=== PATIENT | male | born 1940 | race Two or more races ===

== ENCOUNTER 2020-09-10 16:22 | Outpatient (REF) | payer MEDICARE, SELFPAY | END 2020-09-10 16:23 | disposition home or self-care (01) | LOC: HO.LAB 16:22 | PROVIDERS: Visit Provider Internal Medicine | DX: Z20.822 Contact with and (suspected) exposure to COVID-19 (principal) | CPT/HCPCS: 36415; C9803; U0003 ==

== ENCOUNTER 2020-12-12 20:15 | Inpatient (IN) | payer MEDICARE, SELFPAY ==
--- NOTE | ~2020-12-12 | XR_ITS ---
EXAMINATION: XR CHEST CLINICAL INFORMATION: Covid 19 pneumonia COMPARISON: 01/27/2015 TECHNIQUE: Frontal view of the chest was obtained. FINDINGS: The heart and pulmonary vessels appear normal. There is no evidence of CHF. There are probably subtle multifocal patchy density is seen in the lungs but no gross consolidation. No gross effusion. There is underlying COPD. XR/XR chest 1V IMPRESSION: Ill-defined subtle multifocal densities described above. This can be seen with Covid 19
[2020-12-12 20:54] VITALS: BP 106/67; PULSE 85; RESP 18; TEMP 36.3; O2SAT 94; BMI 40.4
--- NOTE | 2020-12-12 21:15 | ED.SOB ---
HPI - SOB/Dyspnea General Chief Complaint: Upper Respiratory Symptoms Stated Complaint: Fever/Cough Time Seen by Provider: 12/12/20 21:14 Source: patient Mode of arrival: ambulatory Limitations: language barrier History of Present Illness HPI Narrative: Patient with no known prior lung issues got positive with COVID on 11/29 since then been coughing feeling short of breath low-grade fever poor appetite patient and daughter also sick with same patient has not received the vaccine no chest pain no abdominal pain no nausea no vomiting. Patient cough got worse in last 2 days patient when came here saturating 94% at room air MD elicited complaint: shortness of breath and cough Related Data Previous Rx's Medication Instructions Recorded albuterol sulfate [Proventil HFA] 2 puff INHALATION Q6H PRN #8.5 g 12/13/20 azithromycin [Zithromax] 250 mg PO DAILY 4 Days #4 tab 12/13/20 codeine-guaifenesin 5 ml PO Q6H PRN #237 ml 12/13/20 dexamethasone [Decadron] 6 mg PO DAILY #7 tab 12/13/20 Allergies Allergy/AdvReac Type Severity Reaction Status Date / Time No Known Allergies Allergy Unverified 05/15/20 15:41 Review of Systems Review of Systems: Constitutional : No Weight loss, + Fever, No Chills ENT/Mouth : No sore throat, No Rhinorrhea Eyes: No Eye Pain, No Swelling Cardiovascular : No Chest Pain, no palpitations Respiratory : +Cough, No Sputum, + shortness of breath Gastrointestinal : no Nausea, No Vomiting, No Diarrhea, No abdominal Pain, no black stools Genitourinary : No Dysuria, No Urinary Frequency Musculoskeletal : No joint pain, No Myalgias, No Joint Swelling Skin : No Skin Lesions, No rash Neuro : No Weakness, No Numbness, No Dizziness, No Headache Psych : No Anxiety/Panic, No Depression Heme/Lymph: No Bruising, No Lymphadenopathy Endocrine : No Polyuria, No Polydipsia All other systems reviewed and are negative [facility] Social History Social History Advance Directives: No Advance Directives Information Provided: No Physical Exam Vital Signs: Vital Signs: Last Vital Signs Temp 97.4 F 12/12/20 20:54 Pulse 77 12/12/20 22:54 Resp 18 12/12/20 20:54 BP 106/67 12/12/20 20:54 Pulse Ox 94 12/12/20 20:54 Body Mass Index 40.4 Appearance: Alert. Oriented X3. No acute distress. Eyes: Pupils equal, round and reactive to light. ENT: Pharynx normal. Neck: Normal inspection. Neck supple. CVS: Normal heart rate and rhythm. Pulses normal. Respiratory: Mild respiratory distress. Prolonged expiration no crackles or rhonchi Abdomen: Soft and nontender. Bowel sounds are present, no mass palpable, no CVA tenderness Skin: Skin warm and dry. Normal skin color. Normal skin turgor. Extremities: No lower extremity edema. No calf tenderness Neuro: Oriented X 3. No motor deficit. No sensory deficit. Course Reevaluation(s) Reevaluation #1: Patient been saturating 96% at rest feeling much better drinks lot of orange juice with chronic renal disease slightly elevated potassium 5.5 will give him Kayexalate advised not to drink too much orange juice at home. Will also discharge him home on Decadron Zithromax and cough syrup advised him to come back to the ER if feeling short of breath Time: 00:47 MDM - SOB/Dyspnea MDM Narrative Medical decision making narrative: Patient with COVID-19 pneumonia saturating 94% at this time will give him Decadron and Zithromax plan to discharge him home Lab Data Attestation: I reviewed the patient's lab results. Result diagrams: 12/12/20 22:36 12/12/20 23:25 Labs: Lab Results 12/12/20 12/12/20 12/12/20 Range/Units 22:11 22:36 22:36 WBC 7.0 (4.8-10.8) X10*3/uL RBC 4.66 (4.60-5.80) X10*6/uL Hgb 13.2 L (14.0-18.0) g/dl Hct 41.0 L (42-52) % MCV 88.0 (80-98) fL MCH 28.3 (27.0-33.0) pg MCHC 32.2 (31.0-36.0) g/dl RDW 14.5 (11.0-16.0) % Plt Count 220 (160-400) X10*3/uL MPV 10.1 (9.4-12.4) fL Immature Gran % (Auto) 0.9 H (0.0-0.4) % Neut % (Auto) 66.9 (45-73) % Lymph % (Auto) 17.1 L (20-40) % [place] % (Auto) 14.3 H (2-11) % Eos % (Auto) 0.7 (0-4) % Baso % (Auto) 0.1 (0-2) % Lymph # (Auto) 1.2 (1.2-4.9) X10*3/uL [place] # (Auto) 1.0 (0.1-1.2) X10*3/uL Eos # (Auto) 0.1 (0.0-0.4) X10*3/uL Baso # (Auto) 0.0 (0.0-0.2) X10*3/uL Abs Immat Gran (auto) 0.06 H (0.00-0.03) X10*3/uL Absolute Neuts (auto) 4.7 (2.0-8.3) X10*3/uL Absolute Nucleated RBC 0.000 (0.0-0.012) X10*3/uL Nucleated RBC % (auto) 0.0 (0.0-0.2) /100WBC PT (10.8-13.0) SEC INR (0.9-1.1) APTT (24.1-38.0) SEC D-Dimer NG/ML Sodium (135-145) mmol/L Potassium (3.3-5.1) mmol/L Chloride (96-108) mmol/L Carbon Dioxide (22-29) mmol/L Anion Gap (12-20) BUN (9-16) mg/dL Creatinine (0.5-1.4) mg/dL Estim Creat Clear Calc Estimated GFR Random Glucose (60-115) mg/dL Lactic Acid 1.0 (0.5-2.0) mmol/L Calcium (8.4-10.2) mg/dL Total Bilirubin (0.0-1.0) mg/dL Direct Bilirubin (0.0-0.5) mg/dL AST (5-37) U/L ALT (0-40) U/L Alkaline Phosphatase (39-117) U/L Lactate Dehydrogenase (118-273) U/L C-Reactive Protein (< or = 0.50) mg/dL Total Protein (6.5-8.0) g/dL Albumin (3.5-5.0) g/dL COVID-19 (KRYSTIN) Positive A (Negative) COVID-19 Clin Com See Note 12/12/20 12/12/20 12/12/20 Range/Units 23:25 23:25 Unknown WBC (4.8-10.8) X10*3/uL RBC (4.60-5.80) X10*6/uL Hgb (14.0-18.0) g/dl Hct (42-52) % MCV (80-98) fL MCH (27.0-33.0) pg MCHC (31.0-36.0) g/dl RDW (11.0-16.0) % Plt Count (160-400) X10*3/uL MPV (9.4-12.4) fL Immature Gran % (Auto) (0.0-0.4) % Neut % (Auto) (45-73) % Lymph % (Auto) (20-40) % [place] % (Auto) (2-11) % Eos % (Auto) (0-4) % Baso % (Auto) (0-2) % Lymph # (Auto) (1.2-4.9) X10*3/uL [place] # (Auto) (0.1-1.2) X10*3/uL Eos # (Auto) (0.0-0.4) X10*3/uL Baso # (Auto) (0.0-0.2) X10*3/uL Abs Immat Gran (auto) (0.00-0.03) X10*3/uL Absolute Neuts (auto) (2.0-8.3) X10*3/uL Absolute Nucleated RBC (0.0-0.012) X10*3/uL Nucleated RBC % (auto) (0.0-0.2) /100WBC PT 15.0 H (10.8-13.0) SEC INR 1.3 H (0.9-1.1) APTT 32.9 (24.1-38.0) SEC D-Dimer 642 NG/ML Sodium 140 (135-145) mmol/L Potassium 5.5 H (3.3-5.1) mmol/L Chloride 105 (96-108) mmol/L Carbon Dioxide 23 (22-29) mmol/L Anion Gap 18 (12-20) BUN 56 H (9-16) mg/dL Creatinine 2.44 H (0.5-1.4) mg/dL Estim Creat Clear Calc 29.0 Estimated GFR 26 Random Glucose 154 H (60-115) mg/dL Lactic Acid (0.5-2.0) mmol/L Calcium 8.4 (8.4-10.2) mg/dL Total Bilirubin 0.6 (0.0-1.0) mg/dL Direct Bilirubin 0.3 (0.0-0.5) mg/dL AST 161 H (5-37) U/L ALT 158 H (0-40) U/L Alkaline Phosphatase 45 (39-117) U/L Lactate Dehydrogenase 448 H Cancelled (118-273) U/L C-Reactive Protein 9.08 H Cancelled (< or = 0.50) mg/dL Total Protein 6.5 (6.5-8.0) g/dL Albumin 3.4 L (3.5-5.0) g/dL COVID-19 (KRYSTIN) (Negative) COVID-19 Clin Com ECG Data Attestation: I personally reviewed and interpreted this ECG as follows: Interpretation: Normal sinus rhythm heart rate 81 beats per minute normal intervals normal axis no acute ST T wave changes no acute ischemia Discharge Plan Discharge Clinical Impression: COVID-19 Patient Disposition: Home, Self-Care Instructions: COVID-19 (Coronavirus Disease 2019) (ED) Additional Instructions: Drink plenty of fluids avoid drinking orange juice. Take medication as prescribed. Report to the ER if increased shortness of breath and not feeling better Prescriptions: New dexamethasone [Decadron] 6 mg tablet 6 mg PO DAILY Qty: 7 RF: 0 codeine-guaifenesin 10-100 mg/5 mL liquid 5 ml PO Q6H PRN (Reason: cough) Qty: 237 RF: 0 albuterol sulfate [Proventil HFA] 90 mcg/actuation HFA aerosol inhaler 2 puff inhalation Q6H PRN (Reason: shortness of breath or wheezing) Qty: 8.5 RF: 0 azithromycin [Zithromax] 250 mg tablet 250 mg PO DAILY 4 Days Qty: 4 RF: 0 Print Language: Mexican
--- NOTE | 2020-12-12 22:00 | ECG_ITS ---
Test Reason : WEAKNESS Blood Pressure : / mmHG Vent. Rate : 081 BPM Atrial Rate : 081 BPM P-R Int : 138 ms QRS Dur : 102 ms QT Int : 348 ms P-R-T Axes : 037 041 077 degrees QTc Int : 404 ms Normal sinus rhythm Normal ECG When compared to the previous EKG of No significant changes seen Referred By: Bhavesh Freeman Electronically Signed By:Hu Osei
[2020-12-12 22:43] LABS: MANUAL DIFF FLAG NO
[2020-12-12 22:44] LABS: Basophils Percent Auto 0.1 % (0-2); Eosinophils Absolute Auto 0.1 X10*3/uL (0.0-0.4); Eosinophils Percent Auto 0.7 % (0-4); Hemoglobin 13.2 g/dl (14.0-18.0); Imm Gran Abs Auto 0.06 X10*3/uL (0.00-0.03); Imm Gran Pct Auto 0.9 % (0.0-0.4); Lymphocytes Absolute Auto 1.2 X10*3/uL (1.2-4.9); Lymphocytes Percent Auto 17.1 % (20-40); Mean Corpuscular HGB Conc 32.2 g/dl (31.0-36.0); Mean Corpuscular Hemoglobin 28.3 pg (27.0-33.0); Mean Platelet Volume 10.1 fL (9.4-12.4); Monocytes Percent Auto 14.3 % (2-11); Neutrophils Absolute Auto 4.7 X10*3/uL (2.0-8.3); Neutrophils Percent Auto 66.9 % (45-73); Platelet Count 220 X10*3/uL (160-400); Red Blood Count 4.66 X10*6/uL (4.60-5.80); Red Cell Distribution Width 14.5 % (11.0-16.0)
[2020-12-12 22:51] LABS: COVID-19 Test Positive (Negative); IDNOW Serial# 9DD0AD1C
[2020-12-12 22:54] VITALS: PULSE 77; O2SAT 93
[2020-12-12] MEDS: Albuterol/Iprat 2.5/0.5MG 3 ML AMPUL.NEB INHALE (22:54)
--- NOTE | 2020-12-12 23:40 | PC.NURSE ---
Pt is COVID+, confirmed with [facility] swab today. Pt self reports fever, & SOB. Latvian speaking. [employer] present. 20g IV access in left AC, patent and functional. Awaiting lab results. Will continue to monitor.
[2020-12-12 23:56] LABS: INTERNATIONAL NORM RATIO 1.3 (0.9-1.1)
[2020-12-12 23:59] LABS: D Dimer 642 NG/ML; Partial Thromboplastin Time 32.9 SEC (24.1-38.0)
[2020-12-13] VITALS (9 sets, daily range): BP systolic 118–141; BP diastolic 71–76; PULSE 67–91; RESP 14–22; TEMP 36.4–36.7; O2SAT 89–97
[2020-12-13] LABS: Alanine Aminotransferase 158 U/L (0-40); Albumin Level 3.4 g/dL (3.5-5.0); Alkaline Phosphatase 45 U/L (39-117); Anion Gap 18 (12-20); Aspartate Amino Transferase 161 U/L (5-37); Bilirubin Direct 0.3 mg/dL (0.0-0.5); Bilirubin Total 0.6 mg/dL (0.0-1.0); Blood Urea Nitrogen 56 mg/dL (9-16); C Reactive Protein 9.08 mg/dL (< or = 0.50); Calcium 8.4 mg/dL (8.4-10.2); Carbon Dioxide 23 mmol/L (22-29); Chloride 105 mmol/L (96-108); Estimated Glomerular Filt Rate 26; Glucose Random 154 mg/dL (60-115); Potassium 5.5 mmol/L (3.3-5.1); Sodium 140 mmol/L (135-145); Total Protein 6.5 g/dL (6.5-8.0)
[2020-12-13 00:07] LABS: Lactate Dehydrogenase 448 U/L (118-273)
--- NOTE | 2020-12-13 00:33 | PC.NURSE ---
RN to bedside with MD Freeman and Ami FOWLER. MD reviewed pt's case with him and plan for discharge home with prescriptions. Pt denied questions/concerns, verbalized understanding. MD informed the patient that he may begin to feel worse in the next couple days and to return back to the ED if symptoms become too much and/or difficulty with breathing.
--- NOTE | 2020-12-13 01:30 | PC.NURSE ---
RN to bedside to provide discharge instructions with Oculus VR grade and center marker on speaker phone. IV line dc'd and pt went to obtain vitals while reviewing instructions; O2 saturation noted to be 89-90% on room air with a good pleth all while the pt was sitting upright on the edge of the bed not speaking. Pt denied feeling short of breath and did not appear to be in distress. RN pushed call button and requested MD Freeman come to bedside for evaluation to determine if discharge home with that O2 sat was still appropriate. Per MD freeman pt to be admitted; pt placed on O2 via NC by RT with positive improvements. Pt made aware of plan by this RN and Viktoria RN went outside to the waiting room to speak with her and provide an update as the daughter was present to pickle solution maker the pt. Pt oriented to person and place only and noted to be forgetful requiring the same information to be relayed and/or often saying okay in response to this RN's Occitan questions and would appear to understand what is being said but when the grade and center marker would interpret the patient would not understand. RN aware
[2020-12-13] MEDS: Azithromycin 500 MG TABLET PO (01:40)
[2020-12-13] MEDS: Sodium Polystyrene Sulfon/Sorb 15 GM/60 ML ORAL.SUSP 30 GM PO (01:40)
--- NOTE | 2020-12-13 01:50 | PM.IMHP ---
History of Present Illness Date of Service: 12/13/20 Chief Complaint: Shortness of breath 80-year-old male with a past medical history of hypertension, hyperlipidemia, diabetes, chronic kidney disease, recent diagnosis of COVID-19 on 11/29/20 presented to the hospital with a chief complaint of neural was no shortness of breath and cough. Denies any fevers chills. Denies any numbness tingling. Denies any nausea vomiting diarrhea. Denies any chest pain palpitations lightheadedness dizziness. Mentions that his shortness of breath worsens on exertion Review of all other systems is negative except mentioned above Of note patient is also admitted for COVID-19 pneumonia, mentioned that patient problem was also her pulling positive. ER course: For ERT patient was saturating 94% on presentation but on ambulation patient is discharged 88%. Given azithromycin, Decadron. Admitted to the hospital for further management. Patient was also noted to be in mild DKA of COPD. [facility] Social History Household Members: Spouse Housing: House Alcohol intake: unknown Smoking Status: Never smoker Second Hand Smoke Exposure: No service: No Current occupational status: unemployed Meds Allergies Allergy/AdvReac Type Severity Reaction Status Date / Time No Known Allergies Allergy Verified 12/14/20 17:48 Active Medications: Current Medications Generic Name Dose Route Start Last Admin Trade Name Freq PRN Reason Stop Dose Admin Acetaminophen 650 mg 12/13/20 01:45 Acetaminophen 325 Mg Tablet PO Q6H PRN Pain, Mild (Pain Scale 1-3) Albuterol Sulfate 4 puff 12/13/20 01:48 Albuterol Sulfate 90 Mcg 8 Gm Inhaler INHALE Q2H PRN Shortness of Breath/Wheezing Amlodipine Besylate 5 mg 12/13/20 09:00 Amlodipine Besylate 5 Mg Tablet PO DAILY [facility] Protocol Aspirin 81 mg 12/13/20 09:00 Aspirin 81 Mg Tab.Chew PO DAILY [facility] Atorvastatin Calcium 80 mg 12/13/20 09:00 Atorvastatin Calcium 80 Mg Tablet PO DAILY [facility] Azithromycin 500 mg 12/13/20 01:45 Azithromycin 500 Mg Tablet PO Q24H [facility] Dexamethasone 6 mg 12/13/20 09:00 Dexamethasone 6 Mg Tablet PO DAILY [facility] Enoxaparin Sodium 40 mg 12/13/20 01:45 Enoxaparin Sodium 40 Mg/0.4 Ml Syringe SUBCUT Q24H [facility] Famotidine 20 mg 12/13/20 09:00 Famotidine 20 Mg Tablet PO BID [facility] Ceftriaxone Sodium 1 gm/ 50 mls @ 100 mls/hr 12/13/20 01:45 Sodium Chloride IV Q24H [facility] Insulin Glargine 10 unit 12/13/20 21:00 Insulin Glargine,Hum.Rec.Anlog 100 Unit/Ml 10 Ml Vial SUBCUT BEDTIME [facility] Insulin Human Lispro 0 unit 12/13/20 07:30 Insulin Lispro 100 Unit/Ml 3 Ml Vial SUBCUT QIDACHS [facility] Protocol Sodium Chloride 3 ml 12/13/20 08:00 0.9 % Sodium Chloride Flush 3 Ml Syringe IVFLUSH QSHIFT [facility] Home Medications Medication Instructions Recorded Confirmed Last Taken Type Breo Ellipta 1 puff INHALATION DAILY 12/13/20 12/13/20 12/12/20 History amlodipine 1 tab PO QAM 12/13/20 12/13/20 12/12/20 History aspirin 1 tab PO QPM 12/13/20 12/13/20 12/12/20 History atorvastatin 1 tab PO QPM 12/13/20 12/13/20 12/12/20 History glipizide 1 tab PO BID 12/13/20 12/13/20 12/12/20 History montelukast 1 tab PO QPM 12/13/20 12/13/20 12/12/20 History omega-3 fatty acids-vitamin E 1 cap BID 12/13/20 12/13/20 12/12/20 History omeprazole 1 cap PO QAM 12/13/20 12/13/20 12/12/20 History pioglitazone 1 tab PO QAM 12/13/20 12/13/20 12/12/20 History valsartan-hydrochlorothiazide 1 tab PO QAM 12/13/20 12/13/20 12/12/20 History Physical Exam Vital Signs and Narrative: Vital Signs: Last Vital Signs Temp 98.0 F 12/13/20 00:53 Pulse 86 12/13/20 01:43 Resp 14 12/13/20 01:43 BP 141/74 H 12/13/20 01:43 Pulse Ox 96 12/13/20 01:46 Body Mass Index 40.4 Gen: Appears be in no acute distress; speaks in full sentences HEENT: NCAT, Moist mucosa. Pulmonary: Course breath sounds, fair air entry CVS: Normal S1-S2 Abdomen: BS+, Soft, Nontender Extremities: Warm well perfused Neuro: Alert and awake. Results Labs CBC and Chem 7: 12/15/20 06:04 12/15/20 06:04 Labs: Laboratory Results - last 24 hr 12/12/20 12/12/20 12/12/20 22:11 22:36 22:36 MCV 88.0 MCH 28.3 MCHC 32.2 RDW 14.5 Plt Count 220 MPV 10.1 Immature Gran % (Auto) 0.9 H Neut % (Auto) 66.9 Lymph % (Auto) 17.1 L [place] % (Auto) 14.3 H Eos % (Auto) 0.7 Baso % (Auto) 0.1 Lymph # (Auto) 1.2 [place] # (Auto) 1.0 Eos # (Auto) 0.1 Baso # (Auto) 0.0 Abs Immat Gran (auto) 0.06 H Absolute Neuts (auto) 4.7 Absolute Nucleated RBC 0.000 Nucleated RBC % (auto) 0.0 PT INR APTT D-Dimer Anion Gap Estim Creat Clear Calc Estimated GFR Random Glucose Lactic Acid 1.0 Calcium Total Bilirubin Direct Bilirubin AST ALT Alkaline Phosphatase Lactate Dehydrogenase C-Reactive Protein Total Protein Albumin COVID-19 (KRYSTIN) Positive A COVID-19 Clin Com See Note 12/12/20 12/12/20 12/12/20 23:25 23:25 Unknown MCV MCH MCHC RDW Plt Count MPV Immature Gran % (Auto) Neut % (Auto) Lymph % (Auto) [place] % (Auto) Eos % (Auto) Baso % (Auto) Lymph # (Auto) [place] # (Auto) Eos # (Auto) Baso # (Auto) Abs Immat Gran (auto) Absolute Neuts (auto) Absolute Nucleated RBC Nucleated RBC % (auto) PT 15.0 H INR 1.3 H APTT 32.9 D-Dimer 642 Anion Gap 18 Estim Creat Clear Calc 29.0 Estimated GFR 26 Random Glucose 154 H Lactic Acid Calcium 8.4 Total Bilirubin 0.6 Direct Bilirubin 0.3 AST 161 H ALT 158 H Alkaline Phosphatase 45 Lactate Dehydrogenase 448 H Cancelled C-Reactive Protein 9.08 H Cancelled Total Protein 6.5 Albumin 3.4 L COVID-19 (KRYSTIN) COVID-19 Clin Com Imaging Radiologist's Impressions: Impressions Chest X-Ray 12/12/20 21:57 IMPRESSION: Ill-defined subtle multifocal densities described above. This can be seen with Covid 19 Assessment and Plan (1) COVID-19: Status: Acute 80-year-old male with a past medical history of hypertension, hyperlipidemia, diabetes, chronic kidney disease presented to the hospital with a chief complaint of shortness of breath. Patient was recently diagnosed with COVID-19. Hypoxic: In the setting of COVID-19. Supplemental oxygen. Will saturate 90%. Patient currently not in distress. Albuterol inhaler p.r.n.. COVID-19 pneumonia: Continue ceftriaxone, azithromycin, Decadron. Id consult for further recommendations. Mild Javy on CKD: Hold home hydrochlorothiazide/valsartan. Monitor renal function. Diabetes: Give the patient on Lantus 10 units and insulin sliding scale. Monitor fingerstick glucose. Hypertension: Continue home amlodipine. Hyperlipidemia: Continue Lipitor DVT prophylaxis: Lovenox GI prophylaxis: Pepcid Code status: Full code
[2020-12-13] MEDS: cefTRIAXone sodium 1 GM in 0.9 % Sodium Chloride 50 ML IV (03:29)
[2020-12-13 07:30] LABS: MANUAL DIFF FLAG NO
[2020-12-13 07:32] LABS: Basophils Percent Auto 0.2 % (0-2); Eosinophils Percent Auto 0.3 % (0-4); Hematocrit 39.6 % (42-52); Hemoglobin 12.6 g/dl (14.0-18.0); Imm Gran Abs Auto 0.06 X10*3/uL (0.00-0.03); Imm Gran Pct Auto 0.9 % (0.0-0.4); Mean Corpuscular HGB Conc 31.8 g/dl (31.0-36.0); Mean Corpuscular Hemoglobin 28.2 pg (27.0-33.0); Mean Corpuscular Volume 88.6 fL (80-98); Mean Platelet Volume 9.6 fL (9.4-12.4); Monocytes Percent Auto 14.9 % (2-11); Neutrophils Absolute Auto 4.5 X10*3/uL (2.0-8.3); Neutrophils Percent Auto 68.7 % (45-73); Platelet Count 237 X10*3/uL (160-400); Red Blood Count 4.47 X10*6/uL (4.60-5.80); Red Cell Distribution Width 14.5 % (11.0-16.0); White Blood Count 6.5 X10*3/uL (4.8-10.8)
--- NOTE | 2020-12-13 07:40 | PC.NURSE ---
Earlier this shift, patient was incontinent of stool. Liquid stool noted on ground and cleaned up by staff. Pt apologetic, and otherwise pleasant/cooperative/calm. Pt ambulated with steady gait to bathroom, and voided twice in bathroom with steady gait. Placed on 3lpm oxygen via nasal cannula, tolerating well. RN to RN report given to CARLOS Tripp.
[2020-12-13 07:49] LABS: Glucose, Whole Blood 167 mg/dL (60-115)
[2020-12-13] MEDS: Insulin Lispro 100 UNIT/ML 3 ML VIAL SUBCUT ×4 (07:51→22:25)
[2020-12-13] MEDS: 0.9 % Sodium Chloride Flush 3 ML SYRINGE IVFLUSH ×2 (07:52→16:06)
[2020-12-13 07:57] LABS: Anion Gap 17 (12-20); Blood Urea Nitrogen 57 mg/dL (9-16); Calcium 8.3 mg/dL (8.4-10.2); Carbon Dioxide 26 mmol/L (22-29); Chloride 105 mmol/L (96-108); Estimated Glomerular Filt Rate 25; Glucose Random 193 mg/dL (60-115); Potassium 5.3 mmol/L (3.3-5.1); Sodium 143 mmol/L (135-145)
[2020-12-13] MEDS: Famotidine 20 MG TABLET PO (08:56)
[2020-12-13] MEDS: dexAMETHasone 6 MG TABLET PO (08:56)
[2020-12-13] MEDS: Atorvastatin Calcium 80 MG TABLET PO (08:56)
[2020-12-13] MEDS: Aspirin 81 MG TAB.CHEW PO (08:56)
[2020-12-13] MEDS: amLODIPine Besylate 5 MG TABLET PO (08:56)
[2020-12-13] MEDS: Enoxaparin Sodium 30 MG/0.3 ML SYRINGE SUBCUT (08:57)
--- NOTE | 2020-12-13 09:06 | PC.NURSE ---
pt ate 100% of breakfast- medicated per emar. resting comfortably in bed. vss.
--- NOTE | 2020-12-13 10:11 | MHC.CM.PN ---
CM CONTACTED PTS DAUGHTER, JACOB VILLATORO ([phone]) VIA T/C. SHE REPORTS THE PT LIVES WITH HIS AND IS PRIMARILY INDEPENDENT WITH SELF CARE. 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 SHE REPORTS THE PT HAS A WALKER AND AN ELECTRIC SCOOTER FOR MOBILITY. JACOB REPORTS THE PT SEES [facility] FOR PRIMARY CARE AND SHE BELIEVES HE HAS COMPLETED A HCP IN THE PAST THAT MAY BE AT THE PCP OFFICE. JACOB REPORTS HE MOTHER IS ALSO ILL AND SHE IS VERY WORRIED THAT THE PT WILL NOT BE SAFE IF HE GOES HOME TOO SOON. JACOB, WHO WAS VERY TEARFUL, REPORTS THE PTS CONTROLS DESIGNER MAY NOT EVEN SEE HIM DUE TO THE COVID. CM ASSURED HER THE PTS DC PLAN WOULD BE DEVELOPED BASED ON PTS SAFETY RISKS AND MEDICAL NEEDS. IMM DELIVERED AND A COPY WILL BE MAILED TO PTS HOME CURRENTLY PTS DC PLAN IS TBD. ? HOME WITH RESUMPTION OF CONTR[employer]S DES[employer]ER AND [employer] CM SERVICES VS STR. TRANSPORTATION TBD BY DISPOSITION
[2020-12-13 10:19] LABS: Procalcitonin 0.26 ng/mL
[2020-12-13 13:19] LABS: Glucose, Whole Blood 175 mg/dL (60-115)
--- NOTE | 2020-12-13 13:33 | PC.NURSE ---
medicated per emar. sitting up eating lunch at this time. resp even and unlabored. tolerating nc well and sats above 95
--- NOTE | 2020-12-13 16:19 | P.PNIM_ITS ---
Subjective Subjective Date of Service: 12/13/20 Interval History: C/o cough and shortness of breath Maintaining good O2 sat on NC is in next room also getting admitted for COVID-19 pneumonia Physical Exam Vital Signs: Vital Signs: Last Vital Signs Temp 98.0 F 12/13/20 00:53 Pulse 76 12/13/20 14:19 Resp 16 12/13/20 14:19 BP 118/71 12/13/20 12:00 Pulse Ox 97 12/13/20 14:19 Body Mass Index 40.4 Gen: in no acute distress HEENT: sclera anicteric, moist mucus membranes Neck: supple Lungs: no respiratory distress, auscultation deferred due to COVID-19 Heart: normal peripheral pulses Abd: soft, non-tender, non-distended Ext: no cyanosis, clubbing, or edema Skin: warm/well-perfused Neuro: alert and oriented x3, no focal findings Psych: appropriate affect Objective Data Current Medications Generic Name Dose Route Start Last Admin Trade Name Freq PRN Reason Stop Dose Admin Acetaminophen 650 mg 12/13/20 01:45 Acetaminophen 325 Mg Tablet PO Q6H PRN Pain, Mild (Pain Scale 1-3) Albuterol Sulfate 4 puff 12/13/20 01:48 Albuterol Sulfate 90 Mcg 8 Gm Inhaler INHALE Q2H PRN Shortness of Breath/Wheezing Amlodipine Besylate 5 mg 12/13/20 09:00 12/13/20 08:56 Amlodipine Besylate 5 Mg Tablet PO 5 mg DAILY AGNES Administration Protocol Aspirin 81 mg 12/13/20 09:00 12/13/20 08:56 Aspirin 81 Mg Tab.Chew PO 81 mg DAILY AGNES Administration Atorvastatin Calcium 80 mg 12/13/20 09:00 12/13/20 08:56 Atorvastatin Calcium 80 Mg Tablet PO 80 mg DAILY AGNES Administration Dexamethasone 6 mg 12/13/20 09:00 12/13/20 08:56 Dexamethasone 6 Mg Tablet PO 6 mg DAILY AGNES Administration Enoxaparin Sodium 30 mg 12/13/20 09:00 12/13/20 08:57 Enoxaparin Sodium 30 Mg/0.3 Ml Syringe SUBCUT 30 mg DAILY AGNES Administration Famotidine 20 mg 12/13/20 09:00 12/13/20 08:56 Famotidine 20 Mg Tablet PO 20 mg DAILY AGNES Administration Insulin Glargine 10 unit 12/13/20 21:00 Insulin Glargine,Hum.Rec.Anlog 100 Unit/Ml 10 Ml Vial SUBCUT BEDTIME [facility] Insulin Human Lispro 0 unit 12/13/20 07:30 12/13/20 13:22 Insulin Lispro 100 Unit/Ml 3 Ml Vial SUBCUT 2 unit QIDACHS [facility] Administration Protocol Sodium Chloride 3 ml 12/13/20 08:00 12/13/20 16:06 0.9 % Sodium Chloride Flush 3 Ml Syringe IVFLUSH 3 ml QSHIFT [facility] Administration Labs CBC & Chem 7: 12/13/20 07:14 12/13/20 07:14 Labs: Laboratory Results - last 24 hr 12/12/20 12/12/20 12/12/20 22:11 22:36 22:36 WBC 7.0 RBC 4.66 Hgb 13.2 L Hct 41.0 L MCV 88.0 MCH 28.3 MCHC 32.2 RDW 14.5 Plt Count 220 MPV 10.1 Immature Gran % (Auto) 0.9 H Neut % (Auto) 66.9 Lymph % (Auto) 17.1 L Cottle % (Auto) 14.3 H Eos % (Auto) 0.7 Baso % (Auto) 0.1 Lymph # (Auto) 1.2 Cottle # (Auto) 1.0 Eos # (Auto) 0.1 Baso # (Auto) 0.0 Abs Immat Gran (auto) 0.06 H Absolute Neuts (auto) 4.7 Absolute Nucleated RBC 0.000 Nucleated RBC % (auto) 0.0 PT INR APTT D-Dimer Sodium Potassium Chloride Carbon Dioxide Anion Gap BUN Creatinine Estim Creat Clear Calc Estimated GFR POC Glucose Random Glucose Lactic Acid 1.0 Calcium Total Bilirubin Direct Bilirubin AST ALT Alkaline Phosphatase Lactate Dehydrogenase C-Reactive Protein Total Protein Albumin Procalcitonin COVID-19 (KRYSTIN) Positive A COVID-19 Clin Com See Note 12/12/20 12/12/20 12/12/20 23:25 23:25 Unknown WBC RBC Hgb Hct MCV MCH MCHC RDW Plt Count MPV Immature Gran % (Auto) Neut % (Auto) Lymph % (Auto) Cott[place] % (Auto) Eos % (Auto) Baso % (Auto) Lymph # (Auto) Cott[place] # (Auto) Eos # (Auto) Baso # (Auto) Abs Immat Gran (auto) Absolute Neuts (auto) Absolute Nucleated RBC Nucleated RBC % (auto) PT 15.0 H INR 1.3 H APTT 32.9 D-Dimer 642 Sodium 140 Potassium 5.5 H Chloride 105 Carbon Dioxide 23 Anion Gap 18 BUN 56 H Creatinine 2.44 H Estim Creat Clear Calc 29.0 Estimated GFR 26 POC Glucose Random Glucose 154 H Lactic Acid Calcium 8.4 Total Bilirubin 0.6 Direct Bilirubin 0.3 AST 161 H ALT 158 H Alkaline Phosphatase 45 Lactate Dehydrogenase 448 H Cancelled C-Reactive Protein 9.08 H Cancelled Total Protein 6.5 Albumin 3.4 L Procalcitonin COVID-19 (KRYSTIN) COVID[employer]eraDx ([employer]) 12/13/20 12/13/20 12/13/20 07:14 07:14 07:14 WBC 6.5 RBC 4.47 L Hgb 12.6 L Hct 39.6 L MCV 88.6 MCH 28.2 MCHC 31.8 RDW 14.5 Plt Count 237 MPV 9.6 Immature Gran % (Auto) 0.9 H Neut % (Auto) 68.7 Lymph % (Auto) 15.0 L Cott[place] % (Auto) 14.9 H Eos % (Auto) 0.3 Baso % (Auto) 0.2 Lymph # (Auto) 1.0 L Cott[place] # (Auto) 1.0 Eos # (Auto) 0.0 Baso # (Auto) 0.0 Abs Immat Gran (auto) 0.06 H Absolute Neuts (auto) 4.5 Absolute Nucleated RBC 0.000 Nucleated RBC % (auto) 0.0 PT INR APTT D-Dimer Sodium 143 Potassium 5.3 H Chloride 105 Carbon Dioxide 26 Anion Gap 17 BUN 57 H Creatinine 2.53 H Estim Creat Clear Calc 28.0 Estimated GFR 25 POC Glucose Random Glucose 193 H Lactic Acid Calcium 8.3 L Total Bilirubin Direct Bilirubin AST ALT Alkaline Phosphatase Lactate Dehydrogenase C-Reactive Protein Total Protein Albumin Procalcitonin 0.26 COVID-19 (KRYSTIN) [employer]era[employer]x ([employer]) 12/13/20 12/13/20 07:44 13:14 WBC RBC Hgb Hct MCV MCH MCHC RDW Plt Count MPV Immature Gran % (Auto) Neut % (Auto) Lymph % (Auto) Cottle % (Auto) Eos % (Auto) Baso % (Auto) Lymph # (Auto) Cottle # (Auto) Eos # (Auto) Baso # (Auto) Abs Immat Gran (auto) Absolute Neuts (auto) Absolute Nucleated RBC Nucleated RBC % (auto) PT INR APTT D-Dimer Sodium Potassium Chloride Carbon Dioxide Anion Gap BUN Creatinine Estim Creat Clear Calc Estimated GFR POC Glucose 167 H 175 H Random Glucose Lactic Acid Calcium Total Bilirubin Direct Bilirubin AST ALT Alkaline Phosphatase Lactate Dehydrogenase C-Reactive Protein Total Protein Albumin Procalcitonin COVID-19 (KRYSTIN) COVID-19 Clin Com Impressions Chest X-Ray 12/12/20 21:57 IMPRESSION: Ill-defined subtle multifocal densities described above. This can be seen with Covid 19 Assessment and Plan (1) COVID-19: Status: Acute (2) Hypoxia: Status: Acute Assessment and Plan: hospital d#2 80yo M with DM2, HTN, HLD, CKD3 presenting with worsening dyspnea + cough since diagnosis of COVID-19 on 11/29/20 admitted for hypoxia # acute hypoxic respiratory failure - supplemental O2 via NC, wean as tolerated, encouarged awake proning # COVID-19 pneumonia - dexamethasone d#1. out of window for remdesivir and CrCl is <30. PCT low; d/c ABX, doubt bacterial superinfection # SHANNON/CKD4 - hold home valsartan + HCTZ. monitor electrlytes # hyperK - mild, improving p SPS # HTN - continue amlodipine, hold valsartan + HCTZ as above # asthma - continue ICS/LABA, montelukast, prn KATIE # HLD - continue statin # DM2 - Lantus + Humalog # VTE ppx - continue LMWH
[2020-12-13 18:41] LABS: Glucose, Whole Blood 302 mg/dL (60-115)
--- NOTE | 2020-12-13 18:44 | PC.NURSE ---
pt medicated per emar, eating dinner at this time. resting in bed comfortably nad.
[2020-12-13 22:13] LABS: Glucose, Whole Blood 275 mg/dL (60-115)
[2020-12-13] MEDS: Insulin Glargine,Hum.rec.anlog 100 UNIT/ML 10 ML VIAL 10 UNIT SUBCUT (22:25)
[2020-12-13] MEDS: Montelukast Sodium 10 MG TABLET PO (22:25)
--- NOTE | 2020-12-13 23:02 | W.PM.IDCN ---
History of Present Illness Data of Consult Service Date: 12/13/20 Requesting physician: Festus Cortes Primary Care Provider: Saumya Phelps MD [facility] Reason for consult: ESTELA He presents to hospital with weakness and chills for a week Testing shows COVMAUDE He has been on room air Review of Systems Review of Systems: Yes all other systems are reviewed and are negative PMFSH Family History Family history: reviewed and not pertinent Social History Social History Alcohol intake: unknown Smoking Status: Unknown if ever smoked Use of substances other than those prescribed or required for medical reasons: Unknown Advance Directives: No Advance Directives Information Provided: No service: No Current occupational status: unemployed Meds Allergies Allergy/AdvReac Type Severity Reaction Status Date / Time No Known Allergies Allergy Unverified 05/15/20 15:41 Active Medications: Current Medications Generic Name Dose Route Start Last Admin Trade Name Freq PRN Reason Stop Dose Admin Acetaminophen 650 mg 12/13/20 01:45 Acetaminophen 325 Mg Tablet PO Q6H PRN Pain, Mild (Pain Scale 1-3) Albuterol Sulfate 4 puff 12/13/20 01:48 Albuterol Sulfate 90 Mcg 8 Gm Inhaler INHALE Q2H PRN Shortness of Breath/Wheezing Amlodipine Besylate 5 mg 12/13/20 09:00 12/13/20 08:56 Amlodipine Besylate 5 Mg Tablet PO 5 mg DAILY AGNES Administration Protocol Aspirin 81 mg 12/13/20 09:00 12/13/20 08:56 Aspirin 81 Mg Tab.Chew PO 81 mg DAILY AGNES Administration Atorvastatin Calcium 80 mg 12/13/20 09:00 12/13/20 08:56 Atorvastatin Calcium 80 Mg Tablet PO 80 mg DAILY AGNES Administration Dexamethasone 6 mg 12/13/20 09:00 12/13/20 08:56 Dexamethasone 6 Mg Tablet PO 6 mg DAILY AGNES Administration Enoxaparin Sodium 30 mg 12/13/20 09:00 12/13/20 08:57 Enoxaparin Sodium 30 Mg/0.3 Ml Syringe SUBCUT 30 mg DAILY AGNES Administration Famotidine 20 mg 12/13/20 09:00 12/13/20 08:56 Famotidine 20 Mg Tablet PO 20 mg DAILY AGNES Administration Fluticasone/Vilanterol 1 puff 12/14/20 08:00 Fluticasone/Vilanterol 200/25 Blst.W.Dev INHALE RDAILY [facility] Insulin Glargine 10 unit 12/13/20 21:00 12/13/20 22:25 Insulin Glargine,Hum.Rec.Anlog 100 Unit/Ml 10 Ml Vial SUBCUT 10 unit BEDTIME AGNES Administration Insulin Human Lispro 0 unit 12/13/20 07:30 12/13/20 22:25 Insulin Lispro 100 Unit/Ml 3 Ml Vial SUBCUT 6 unit QIDACHS [facility] Administration Protocol Montelukast Sodium 10 mg 12/13/20 21:00 12/13/20 22:25 Montelukast Sodium 10 Mg Tablet PO 10 mg BEDTIME AGNES Administration Sodium Chloride 3 ml 12/13/20 08:00 12/13/20 16:06 0.9 % Sodium Chloride Flush 3 Ml Syringe IVFLUSH 3 ml QSHIFT [facility] Administration Home Medications Medication Instructions Recorded Confirmed Last Taken Type amlodipine 1 tab PO QAM 12/13/20 12/13/20 12/12/20 History aspirin 1 tab PO QPM 12/13/20 12/13/20 12/12/20 History atorvastatin 1 tab PO QPM 12/13/20 12/13/20 12/12/20 History fluticasone furoate-vilanterol 1 puff INHALATION DAILY 12/13/20 12/13/20 12/12/20 History [Breo Ellipta] glipizide 1 tab PO BID 12/13/20 12/13/20 12/12/20 History montelukast 1 tab PO QPM 12/13/20 12/13/20 12/12/20 History omega-3 fatty acids-vitamin E 1 cap BID 12/13/20 12/13/20 12/12/20 History [Fish Oil] omeprazole 1 cap PO QAM 12/13/20 12/13/20 12/12/20 History pioglitazone 1 tab PO QAM 12/13/20 12/13/20 12/12/20 History valsartan-hydrochlorothiazide 1 tab PO QAM 12/13/20 12/13/20 12/12/20 History Physical Exam Vital Signs: Vital Signs: Last Vital Signs Temp 97.6 F 12/13/20 21:24 Pulse 81 12/13/20 21:24 Resp 22 H 12/13/20 21:24 BP 132/74 12/13/20 21:24 Pulse Ox 92 12/13/20 21:24 Body Mass Index 40.4 Const: General: cooperative HENMT: Head: Yes normal to inspection Mouth: Normal oral and palatal mucosa present Resp: Effort & Inspection: normal respiratory effort Cardio: Rate: regular rate Rhythm: regular rhythm Skin: General skin exam: no rashes or lesions noted Results Labs CBC & Chem 7: 12/13/20 07:14 12/13/20 07:14 Labs: Short CBC 12/13/20 Range/Units 07:14 WBC 6.5 (4.8-10.8) X10*3/uL Hgb 12.6 L (14.0-18.0) g/dl Hct 39.6 L (42-52) % Plt Count 237 (160-400) X10*3/uL BMP 12/12/20 12/13/20 23:25 07:14 Sodium 140 143 Potassium 5.5 H 5.3 H Chloride 105 105 Carbon Dioxide 23 26 BUN 56 H 57 H Creatinine 2.44 H 2.53 H Calcium 8.4 8.3 L Liver Function 12/12/20 Range/Units 23:25 Total Bilirubin 0.6 (0.0-1.0) mg/dL Direct Bilirubin 0.3 (0.0-0.5) mg/dL AST 161 H (5-37) U/L ALT 158 H (0-40) U/L Alkaline Phosphatase 45 (39-117) U/L Albumin 3.4 L (3.5-5.0) g/dL Assessment and Plan (1) COVID-19: Problem details: He has no oxygen requirements He has no secondary infection Status: Acute Dexamethasone as needed Remdesivir if needs oxygen Anticoagulation preventive as doing
[2020-12-14] VITALS (7 sets, daily range): BP systolic 104–138; BP diastolic 65–80; PULSE 57–87; RESP 17–26; TEMP 36.2–36.4; O2SAT 93–99
[2020-12-14] MEDS: 0.9 % Sodium Chloride Flush 3 ML SYRINGE IVFLUSH ×4 (00:15→22:49)
[2020-12-14 08:25] LABS: Glucose, Whole Blood 204 mg/dL (60-115)
[2020-12-14] MEDS: amLODIPine Besylate 5 MG TABLET PO (08:42)
[2020-12-14] MEDS: Atorvastatin Calcium 80 MG TABLET PO (08:42)
[2020-12-14] MEDS: Aspirin 81 MG TAB.CHEW PO (08:42)
[2020-12-14] MEDS: Insulin Lispro 100 UNIT/ML 3 ML VIAL SUBCUT ×4 (08:42→22:49)
[2020-12-14] MEDS: Famotidine 20 MG TABLET PO (08:42)
[2020-12-14] MEDS: dexAMETHasone 6 MG TABLET PO (08:42)
[2020-12-14] MEDS: Enoxaparin Sodium 30 MG/0.3 ML SYRINGE SUBCUT (08:43)
[2020-12-14 08:47] LABS: MANUAL DIFF FLAG NO
[2020-12-14 08:59] LABS: Basophils Percent Auto 0.1 % (0-2); Hemoglobin 12.9 g/dl (14.0-18.0); Imm Gran Abs Auto 0.13 X10*3/uL (0.00-0.03); Imm Gran Pct Auto 1.5 % (0.0-0.4); Lymphocytes Absolute Auto 0.7 X10*3/uL (1.2-4.9); Lymphocytes Percent Auto 8.1 % (20-40); Mean Corpuscular HGB Conc 33.1 g/dl (31.0-36.0); Mean Corpuscular Hemoglobin 28.8 pg (27.0-33.0); Mean Corpuscular Volume 87.1 fL (80-98); Mean Platelet Volume 9.7 fL (9.4-12.4); Monocytes Percent Auto 10.8 % (2-11); Neutrophils Percent Auto 79.5 % (45-73); Platelet Count 300 X10*3/uL (160-400); Red Blood Count 4.48 X10*6/uL (4.60-5.80); Red Cell Distribution Width 14.3 % (11.0-16.0); White Blood Count 8.9 X10*3/uL (4.8-10.8)
[2020-12-14 09:08] LABS: D Dimer 672 NG/ML
[2020-12-14 09:24] LABS: Alanine Aminotransferase 157 U/L (0-40); Albumin Level 3.6 g/dL (3.5-5.0); Alkaline Phosphatase 46 U/L (39-117); Anion Gap 20 (12-20); Aspartate Amino Transferase 123 U/L (5-37); Bilirubin Direct 0.3 mg/dL (0.0-0.5); Bilirubin Total 0.6 mg/dL (0.0-1.0); Blood Urea Nitrogen 63 mg/dL (9-16); C Reactive Protein 7.66 mg/dL (< or = 0.50); Calcium 8.8 mg/dL (8.4-10.2); Carbon Dioxide 21 mmol/L (22-29); Chloride 107 mmol/L (96-108); Creatinine Clr Calc Pharmacy 29.6; Estimated Glomerular Filt Rate 26; Glucose Random 215 mg/dL (60-115); Potassium 5.1 mmol/L (3.3-5.1); Sodium 143 mmol/L (135-145); Total Protein 6.7 g/dL (6.5-8.0)
[2020-12-14 09:44] LABS: Procalcitonin 0.23 ng/mL
[2020-12-14 10:39] LABS: Ferritin 4558 ng/mL (20-250)
[2020-12-14 12:41] LABS: Glucose, Whole Blood 269 mg/dL (60-115)
--- NOTE | 2020-12-14 12:51 | P.PNIM_ITS ---
Subjective Subjective Date of Service: 12/14/20 Interval History: history taken from patient in Latvian dyspnea improved no fever weaned off oxygen this morning is admitted to isolation upstairs with COVID-19 Physical Exam Vital Signs: Vital Signs: Last Vital Signs Temp 97.6 F 12/13/20 21:24 Pulse 87 12/14/20 08:42 Resp 18 12/14/20 08:16 BP 110/75 12/14/20 08:42 Pulse Ox 93 12/14/20 08:16 Body Mass Index 40.4 Gen: in no acute distress HEENT: sclera anicteric, moist mucus membranes Neck: supple Lungs: no respiratory distress, auscultation deferred due to COVID-19 Heart: normal peripheral pulses Abd: soft, non-tender, non-distended Ext: no cyanosis, clubbing, or edema Skin: warm/well-perfused Neuro: alert and oriented x3, no focal findings Psych: appropriate affect Objective Data Current Medications Generic Name Dose Route Start Last Admin Trade Name Freq PRN Reason Stop Dose Admin Acetaminophen 650 mg 12/13/20 01:45 Acetaminophen 325 Mg Tablet PO Q6H PRN Pain, Mild (Pain Scale 1-3) Albuterol Sulfate 4 puff 12/13/20 01:48 Albuterol Sulfate 90 Mcg 8 Gm Inhaler INHALE Q2H PRN Shortness of Breath/Wheezing Amlodipine Besylate 5 mg 12/13/20 09:00 12/14/20 08:42 Amlodipine Besylate 5 Mg Tablet PO 5 mg DAILY AGNES Administration Protocol Aspirin 81 mg 12/13/20 09:00 12/14/20 08:42 Aspirin 81 Mg Tab.Chew PO 81 mg DAILY AGNES Administration Atorvastatin Calcium 80 mg 12/13/20 09:00 12/14/20 08:42 Atorvastatin Calcium 80 Mg Tablet PO 80 mg DAILY AGNES Administration Dexamethasone 6 mg 12/13/20 09:00 12/14/20 08:42 Dexamethasone 6 Mg Tablet PO 6 mg DAILY AGNES Administration Enoxaparin Sodium 30 mg 12/13/20 09:00 12/14/20 08:43 Enoxaparin Sodium 30 Mg/0.3 Ml Syringe SUBCUT 30 mg DAILY AGNES Administration Famotidine 20 mg 12/13/20 09:00 12/14/20 08:42 Famotidine 20 Mg Tablet PO 20 mg DAILY AGNES Administration Fluticasone/Vilanterol 1 puff 12/14/20 08:00 12/14/20 08:54 Fluticasone/Vilanterol 200/25 Blst.W.Dev INHALE Not Given RDAILY [facility] Insulin Glargine 14 unit 12/14/20 21:00 Insulin Glargine,Hum.Rec.Anlog 100 Unit/Ml 10 Ml Vial SUBCUT BEDTIME [facility] Insulin Human Lispro 0 unit 12/13/20 07:30 12/14/20 08:42 Insulin Lispro 100 Unit/Ml 3 Ml Vial SUBCUT 2 unit QIDACHS [facility] Administration Protocol Montelukast Sodium 10 mg 12/13/20 21:00 12/13/20 22:25 Montelukast Sodium 10 Mg Tablet PO 10 mg BEDTIME [facility] Administration Sodium Chloride 3 ml 12/13/20 08:00 12/14/20 08:54 0.9 % Sodium Chloride Flush 3 Ml Syringe IVFLUSH 3 ml QSHIFT [facility] Administration Labs CBC & Chem 7: 12/14/20 08:27 12/14/20 08:27 Labs: Laboratory Results - last 24 hr 12/13/20 12/13/20 12/13/20 13:14 18:37 22:07 WBC RBC Hgb Hct MCV MCH MCHC RDW Plt Count MPV Immature Gran % (Auto) Neut % (Auto) Lymph % (Auto) [place] % (Auto) Eos % (Auto) Baso % (Auto) Lymph # (Auto) [place] # (Auto) Eos # (Auto) Baso # (Auto) Abs Immat Gran (auto) Absolute Neuts (auto) Absolute Nucleated RBC Nucleated RBC % (auto) D-Dimer Sodium Potassium Chloride Carbon Dioxide Anion Gap BUN Creatinine Estim Creat Clear Calc Estimated GFR POC Glucose 175 H 302 H 275 H Random Glucose Calcium Ferritin Total Bilirubin Direct Bilirubin AST ALT Alkaline Phosphatase C-Reactive Protein Total Protein Albumin Procalcitonin 12/14/20 12/14/20 12/14/20 08:14 08:27 08:27 WBC RBC Hgb Hct MCV MCH MCHC RDW Plt Count MPV Immature Gran % (Auto) Neut % (Auto) Lymph % (Auto) [place] % (Auto) Eos % (Auto) Baso % (Auto) Lymph # (Auto) [place] # (Auto) Eos # (Auto) Baso # (Auto) Abs Immat Gran (auto) Absolute Neuts (auto) Absolute Nucleated RBC Nucleated RBC % (auto) D-Dimer Sodium 143 Potassium 5.1 Chloride 107 Carbon Dioxide 21 L Anion Gap 20 BUN 63 H Creatinine 2.39 H Estim Creat Clear Calc 29.6 Estimated GFR 26 POC Glucose 204 H Random Glucose 215 H Calcium 8.8 D Ferritin 4558 H Total Bilirubin 0.6 Direct Bilirubin 0.3 AST 123 H ALT 157 H Alkaline Phosphatase 46 C-Reactive Protein 7.66 H Total Protein 6.7 Albumin 3.6 Procalcitonin 0.23 12/14/20 12/14/20 12/14/20 08:27 08:27 12:18 WBC 8.9 RBC 4.48 L Hgb 12.9 L Hct 39.0 L MCV 87.1 MCH 28.8 MCHC 33.1 RDW 14.3 Plt Count 300 D MPV 9.7 Immature Gran % (Auto) 1.5 H Neut % (Auto) 79.5 H Lymph % (Auto) 8.1 L [place] % (Auto) 10.8 Eos % (Auto) 0.0 Baso % (Auto) 0.1 Lymph # (Auto) 0.7 L [place] # (Auto) 1.0 Eos # (Auto) 0.0 Baso # (Auto) 0.0 Abs Immat Gran (auto) 0.13 H Absolute Neuts (auto) 7.0 Absolute Nucleated RBC 0.000 Nucleated RBC % (auto) 0.0 D-Dimer 672 Sodium Potassium Chloride Carbon Dioxide Anion Gap BUN Creatinine Estim Creat Clear Calc Estimated GFR POC Glucose 269 H Random Glucose Calcium Ferritin Total Bilirubin Direct Bilirubin AST ALT Alkaline Phosphatase C-Reactive Protein Total Protein Albumin Procalcitonin Microbiology Microbiology Results: Microbiology 12/12/20 22:36 Blood - Venous Blood Culture - Preliminary No growth after 24 hours. 12/12/20 22:36 Blood - Venous Blood Culture - Preliminary No growth after 24 hours. Assessment and Plan (1) COVID-19: Status: Acute (2) Hypoxia: Status: Acute Assessment and Plan: hospital d#3 80yo M with DM2, HTN, HLD, CKD4 presenting with worsening dyspnea + cough since diagnosis of COVID-19 on 11/29/20 admitted for hypoxia # acute hypoxic respiratory failure - resolved but high risk of worsening given comorbidities, continue to monitor closely # COVID-19 pneumonia - dexamethasone d#2. out of window for remdesivir and CrCl is <30. PCT low; d/c'ed ABX, doubt bacterial superinfection # transaminasemia - likely due to COVID-19 but will screen for HBV/HCV # SHANNON/CKD4 - continue hold home valsartan + HCTZ. monitor electrolytes # hyperK - mild, improved p SPS # HTN - continue amlodipine, hold valsartan + HCTZ as above and BP remains controlled # asthma - continue ICS/LABA, montelukast, prn KATIE # HLD - continue statin # DM2 - Lantus (increased for hyperglycemia) + Humalog # VTE ppx - continue LMWH
--- NOTE | 2020-12-14 13:38 | PC.NURSE ---
Pt up walking around w/ steady and shepherd gait, no apparent distress, no respiratory distress. Pt denies complaints but is requesting items from his admitted upstairs.
[2020-12-14 16:53] LABS: Glucose, Whole Blood 408 mg/dL (60-115)
--- NOTE | 2020-12-14 17:43 | PC.NURSE ---
POC [address] Dr Cortes notified via [employer]. Sliding scale adjusted by
[2020-12-14 20:30] LABS: Glucose, Whole Blood 307 mg/dL (60-115)
[2020-12-14] MEDS: Montelukast Sodium 10 MG TABLET PO (22:47)
[2020-12-14] MEDS: Insulin Glargine,Hum.rec.anlog 100 UNIT/ML 10 ML VIAL 14 UNIT SUBCUT (22:47)
[2020-12-15] VITALS (8 sets, daily range): BP systolic 118–144; BP diastolic 61–79; PULSE 63–80; RESP 18–20; TEMP 36–36.4; O2SAT 91–98
[2020-12-15 03:23] LABS: Estimated Average Glucose 258 mg/dL; Hemoglobin A1c % 10.6 %
[2020-12-15 06:47] LABS: Basophils Percent Auto 0.1 % (0-2); Hematocrit 37.2 % (42-52); Hemoglobin 11.8 g/dl (14.0-18.0); Imm Gran Abs Auto 0.11 X10*3/uL (0.00-0.03); Lymphocytes Absolute Auto 0.7 X10*3/uL (1.2-4.9); Lymphocytes Percent Auto 5.9 % (20-40); MANUAL DIFF FLAG SCAN; Mean Corpuscular HGB Conc 31.7 g/dl (31.0-36.0); Mean Corpuscular Hemoglobin 28.2 pg (27.0-33.0); Mean Platelet Volume 9.6 fL (9.4-12.4); Monocytes Absolute Auto 1.3 X10*3/uL (0.1-1.2); Monocytes Percent Auto 12.1 % (2-11); Neutrophils Absolute Auto 8.9 X10*3/uL (2.0-8.3); Neutrophils Percent Auto 80.9 % (45-73); Platelet Count 311 X10*3/uL (160-400); Red Blood Count 4.18 X10*6/uL (4.60-5.80); Red Cell Distribution Width 14.2 % (11.0-16.0); SCAN SMEAR FLAG 1
[2020-12-15 07:06] LABS: Alanine Aminotransferase 135 U/L (0-40); Albumin Level 3.3 g/dL (3.5-5.0); Alkaline Phosphatase 40 U/L (39-117); Anion Gap 18 (12-20); Aspartate Amino Transferase 78 U/L (5-37); Bilirubin Total 0.4 mg/dL (0.0-1.0); Blood Urea Nitrogen 65 mg/dL (9-16); Calcium 8.4 mg/dL (8.4-10.2); Carbon Dioxide 21 mmol/L (22-29); Chloride 106 mmol/L (96-108); Creatinine Clr Calc Pharmacy 32.9; Estimated Glomerular Filt Rate 30; Glucose Random 255 mg/dL (60-115); Potassium 5.4 mmol/L (3.3-5.1); Sodium 140 mmol/L (135-145)
[2020-12-15 07:18] LABS: Glucose, Whole Blood 205 mg/dL (60-115)
[2020-12-15 07:24] LABS: HBS Num1 0.64 mIU/mL (0-7.99); HBsAGNum1 0.23 S/CO (0.00-0.99); Hepatitis B Surface Antigen Negative (Negative); ~HepC Num1 0.05 S/CO (0.00-0.79); ~Hepatitis B Surface Antibody NONREACTIVE (Nonreactive); ~Hepatitis C Antibody Nonreactive (Nonreactive)
[2020-12-15 07:55] LABS: HBc Num1 0.04 S/CO (0.00-0.79); HIV AB/AG Nonreactive (Nonreactive); HIV Num 1 0.06 S/CO (0.00-0.99); Hepatitis B Core Antibody Nonreactive (Nonreactive)
[2020-12-15] MEDS: Atorvastatin Calcium 80 MG TABLET PO (08:44)
[2020-12-15] MEDS: Aspirin 81 MG TAB.CHEW PO (08:44)
[2020-12-15] MEDS: 0.9 % Sodium Chloride Flush 3 ML SYRINGE IVFLUSH ×2 (08:45→17:05)
[2020-12-15] MEDS: dexAMETHasone 6 MG TABLET PO (08:45)
[2020-12-15] MEDS: Insulin Lispro 100 UNIT/ML 3 ML VIAL SUBCUT ×4 (08:45→21:10)
[2020-12-15] MEDS: Famotidine 20 MG TABLET PO (08:45)
[2020-12-15] MEDS: amLODIPine Besylate 5 MG TABLET PO (08:45)
[2020-12-15] MEDS: Enoxaparin Sodium 30 MG/0.3 ML SYRINGE SUBCUT (08:45)
[2020-12-15 10:10] LABS: SLIDE REVIEW VERIFIED
[2020-12-15 11:08] LABS: Glucose, Whole Blood 198 mg/dL (60-115)
--- NOTE | 2020-12-15 13:59 | P.PNIM_ITS ---
Subjective Subjective Date of Service: 12/15/20 Interval History: seen and examined this afternoon with [employer] pt reports feeling tired and easily short of breath denies fevers ROS General - no fevers or chills Cardiovascular - no chest pain Respiratory - +sob with exertion Abdominal- no abdominal pain, nausea, vomiting, diarrhea Physical Exam Vital Signs: Vital Signs: Last Vital Signs Temp 97 F 12/15/20 11:11 Pulse 73 12/15/20 11:11 Resp 18 12/15/20 11:11 BP 124/77 12/15/20 11:11 Pulse Ox 92 12/15/20 11:11 Body Mass Index 40.4 Const: Other: General - no acute distress, appears comfortable Cardiovascular - regular rate and rhythm, S1-S2 Lungs - diminished sounds Abdomen - soft, non-tender, no rebound or guarding Extremities - no edema bilaterally Neuro - awake and alert, no focal deficits Objective Data Current Medications Generic Name Dose Route Start Last Admin Trade Name Freq PRN Reason Stop Dose Admin Acetaminophen 650 mg 12/13/20 01:45 Acetaminophen 325 Mg Tablet PO Q6H PRN Pain, Mild (Pain Scale 1-3) Albuterol Sulfate 4 puff 12/13/20 01:48 Albuterol Sulfate 90 Mcg 8 Gm Inhaler INHALE Q2H PRN Shortness of Breath/Wheezing Amlodipine Besylate 5 mg 12/13/20 09:00 12/15/20 08:45 Amlodipine Besylate 5 Mg Tablet PO 5 mg DAILY AGNES Administration Protocol Aspirin 81 mg 12/13/20 09:00 12/15/20 08:44 Aspirin 81 Mg Tab.Chew PO 81 mg DAILY AGNES Administration Atorvastatin Calcium 80 mg 12/13/20 09:00 12/15/20 08:44 Atorvastatin Calcium 80 Mg Tablet PO 80 mg DAILY AGNES Administration Dexamethasone 6 mg 12/13/20 09:00 12/15/20 08:45 Dexamethasone 6 Mg Tablet PO 6 mg DAILY AGNES Administration Enoxaparin Sodium 30 mg 12/13/20 09:00 12/15/20 08:45 Enoxaparin Sodium 30 Mg/0.3 Ml Syringe SUBCUT 30 mg DAILY AGNES Administration Famotidine 20 mg 12/13/20 09:00 12/15/20 08:45 Famotidine 20 Mg Tablet PO 20 mg DAILY AGNES Administration Fluticasone/Vilanterol 1 puff 12/14/20 08:00 12/15/20 07:55 Fluticasone/Vilanterol 200/25 Blst.W.Dev INHALE Not Given RDAILY [facility] Insulin Glargine 14 unit 12/14/20 21:00 12/14/20 22:47 Insulin Glargine,Hum.Rec.Anlog 100 Unit/Ml 10 Ml Vial SUBCUT 14 unit BEDTIME [facility] Administration Insulin Human Lispro 0 unit 12/13/20 07:30 12/15/20 12:01 Insulin Lispro 100 Unit/Ml 3 Ml Vial SUBCUT 2 unit QIDACHS [facility] Administration Protocol Montelukast Sodium 10 mg 12/13/20 21:00 12/14/20 22:47 Montelukast Sodium 10 Mg Tablet PO 10 mg BEDTIME [facility] Administration Sodium Chloride 3 ml 12/13/20 08:00 12/15/20 08:45 0.9 % Sodium Chloride Flush 3 Ml Syringe IVFLUSH 3 ml QSHIFT [facility] Administration Labs CBC & Chem 7: 12/15/20 06:04 12/15/20 06:04 Microbiology Microbiology Results: Microbiology 12/12/20 22:36 Blood - Venous Blood Culture - Preliminary No growth after 48 hours. 12/12/20 22:36 Blood - Venous Blood Culture - Preliminary No growth after 48 hours. Assessment and Plan (1) COVID-19: Status: Acute Assessment and Plan: This is a 80 yo M with a PMH of DM, HTN, HLD, CKD4. Diagnosed with COVID 19 on 11/29/2020 and admitted with hypoxia. 1. Acute Hypoxic Respiratory Failure improved, did have a few readings of O2 in the 89-91 range over last 24 hours monitor for an additional 24 hours and if stable, will d/c 2. COVID 19 penumonia per H&P diagnosed 11/29/2020 decadron for 10d course 3. Transaminitis due to COVID monitor 4. SHANNON on CKD4 hold valsartan + hctz SCr downtrending likely 2/2 to covid monitor 5. hyperK kayelexate 6. HTN norvasc 7. Asthma nebs / inhalers 8. DM Lantus + humalog Full Code DVT pptx, Lovenox
[2020-12-15 16:17] LABS: Glucose, Whole Blood 238 mg/dL (60-115)
[2020-12-15] MEDS: Sodium Polystyrene Sulfon/Sorb 15 GM/60 ML ORAL.SUSP PO (17:04)
[2020-12-15 19:55] LABS: Glucose, Whole Blood 365 mg/dL (60-115)
[2020-12-15] MEDS: Montelukast Sodium 10 MG TABLET PO (21:09)
[2020-12-15] MEDS: Insulin Glargine,Hum.rec.anlog 100 UNIT/ML 10 ML VIAL 14 UNIT SUBCUT (21:09)
--- NOTE | 2020-12-16 | ECG_ITS ---
Test Reason : chest pain Blood Pressure : / mmHG Vent. Rate : 060 BPM Atrial Rate : 060 BPM P-R Int : 154 ms QRS Dur : 086 ms QT Int : 426 ms P-R-T Axes : 049 042 076 degrees QTc Int : 426 ms Normal sinus rhythm Normal ECG When compared to the previous EKG of No significant changes seen Referred By: Fito Stevens Electronically Signed By:Hu Osei
[2020-12-16] MEDS: 0.9 % Sodium Chloride Flush 3 ML SYRINGE IVFLUSH ×3 (00:02→15:49)
[2020-12-16 03:49] VITALS: BP 150/65; PULSE 65; RESP 20; TEMP 36.6; O2SAT 96
[2020-12-16] MEDS: Acetaminophen 325 MG TABLET 650 MG PO (06:51)
[2020-12-16 07:34] LABS: Glucose, Whole Blood 179 mg/dL (60-115)
[2020-12-16 08:00] VITALS: BP 148/75; PULSE 76; RESP 20; TEMP 36.5; O2SAT 92
[2020-12-16] MEDS: Insulin Lispro 100 UNIT/ML 3 ML VIAL SUBCUT ×3 (08:02→16:44)
[2020-12-16] MEDS: Atorvastatin Calcium 80 MG TABLET PO (08:03)
[2020-12-16] MEDS: dexAMETHasone 6 MG TABLET PO (08:03)
[2020-12-16] MEDS: Enoxaparin Sodium 30 MG/0.3 ML SYRINGE SUBCUT (08:03)
[2020-12-16] MEDS: Aspirin 81 MG TAB.CHEW PO (08:03)
[2020-12-16] MEDS: Famotidine 20 MG TABLET PO (08:03)
[2020-12-16] MEDS: amLODIPine Besylate 5 MG TABLET PO (08:03)
[2020-12-16 11:47] LABS: Glucose, Whole Blood 194 mg/dL (60-115)
[2020-12-16 12:00] VITALS: BP 158/77; PULSE 84; RESP 20; TEMP 36.7; O2SAT 94
--- NOTE | 2020-12-16 12:26 | MHC.CM.PN ---
DP Male 80 DX Covid PNA. IMM 12/16/20 Pt is dc to home with [facility]. [employer] services will resume. Family will provide transportation.
[2020-12-16] MEDS: Sodium Polystyrene Sulfon/Sorb 15 GM/60 ML ORAL.SUSP PO (12:29)
--- NOTE | 2020-12-16 12:47 | P.DS_ITS ---
DS: Providers Provider Date of Service: 12/16/20 Date of admission: 12/13/20 01:44 Primary care physician: Saumya Phelps MD Consults: 12/13/20 01:45 Consult to Infectious Diseases Routine Consulting Provider: Lorena Kim Reason for consultation: COVID PNA DS: Diagnosis Discharge Diagnosis (1) COVID-19: Status: Acute (2) Acute respiratory failure with hypoxia: Status: Acute (3) Chronic kidney failure: Status: Acute DS: Medications Discharge Medications Home Medications: Home Medications Medication Instructions Recorded Confirmed Breo Ellipta 1 puff INHALATION DAILY 12/13/20 12/13/20 amlodipine 1 tab PO QAM 12/13/20 12/13/20 aspirin 1 tab PO QPM 12/13/20 12/13/20 atorvastatin 1 tab PO QPM 12/13/20 12/13/20 glipizide 1 tab PO BID 12/13/20 12/13/20 montelukast 1 tab PO QPM 12/13/20 12/13/20 omega-3 fatty acids-vitamin E 1 cap BID 12/13/20 12/13/20 omeprazole 1 cap PO QAM 12/13/20 12/13/20 pioglitazone 1 tab PO QAM 12/13/20 12/13/20 valsartan-hydrochlorothiazide 1 tab PO QAM 12/13/20 12/13/20 Previous Rx's Medication Instructions Recorded albuterol sulfate [Proventil HFA] 2 puff INHALATION Q6H PRN #8.5 g 12/13/20 azithromycin [Zithromax] 250 mg PO DAILY 4 Days #4 tab 12/13/20 codeine-guaifenesin 5 ml PO Q6H PRN #237 ml 12/13/20 dexamethasone [Decadron] 6 mg PO DAILY #7 tab 12/13/20 DS: Summary Hospital Course Hospital Course: Patient was started on supplemental oxygen and Decadron for his COVID-19 and hypoxia. Fortunately with these measures, the patient's hypoxia resolved. He was observed 24 hours off oxygen and was able to maintain is sats. He will be d/c to complete a course decadron. Time Spent with Patient Time attestation: Total time spent providing and/or coordinating discharge services: Discharge coordination time: Greater than 30 minutes Physical Exam Vital Signs: Vital Signs: Last Vital Signs Temp 98.1 F 12/16/20 12:00 Pulse 84 12/16/20 12:00 Resp 20 12/16/20 12:00 BP 158/77 H 12/16/20 12:00 Pulse Ox 94 12/16/20 12:00 Body Mass Index 40.4 Const: Other: General - no acute distress, appears comfortable Cardiovascular - regular rate and rhythm, S1-S2 Lungs - normal respiratory effort, clear to auscultation bilaterally, no wheezing Abdomen - soft, nontender, no rebound or guarding Extremities - no edema bilaterally Neuro - awake and alert, no focal deficits DS: Data Data Completed and Pending Labs on day of discharge: Laboratory Results - last 24 hr 12/15/20 12/15/20 12/16/20 16:12 19:50 07:27 POC Glucose 238 H 365 H* 179 H Troponin I High Sens 12/16/20 12/16/20 07:30 11:35 POC Glucose 194 H Troponin I High Sens 5.0 Preliminary micro results at discharge 12/12/20 22:36 Blood Culture - Preliminary Blood - Venous No growth after 48 hours. 12/12/20 22:36 Blood Culture - Preliminary Blood - Venous No growth after 48 hours. Discharge Plan Discharge Patient Disposition: Home, Self-Care Discharge Diagnosis: COVID 19, hypoxia Referrals: Saumya Phelps MD [Primary Care Provider] - 1 Week Discharge Medications: New dexamethasone [Decadron] 6 mg tablet 6 mg PO DAILY Qty: 7 RF: 0 codeine-guaifenesin 10-100 mg/5 mL liquid 5 ml PO Q6H PRN (Reason: cough) Qty: 237 RF: 0 albuterol sulfate [Proventil HFA] 90 mcg/actuation HFA aerosol inhaler 2 puff inhalation Q6H PRN (Reason: shortness of breath or wheezing) Qty: 8.5 RF: 0 azithromycin [Zithromax] 250 mg tablet 250 mg PO DAILY 4 Days Qty: 4 RF: 0 Continued atorvastatin 80 mg tablet 1 tab PO QPM RF: 0 glipizide 10 mg tablet extended release 24hr 1 tab PO BID RF: 0 valsartan-hydrochlorothiazide 160-12.5 mg tablet 1 tab PO QAM RF: 0 pioglitazone 45 mg tablet 1 tab PO QAM RF: 0 amlodipine 5 mg tablet 1 tab PO QAM RF: 0 aspirin 81 mg tablet,delayed release (DR/EC) 1 tab PO QPM RF: 0 omeprazole 20 mg capsule,delayed release(DR/EC) 1 cap PO QAM RF: 0 montelukast 10 mg tablet 1 tab PO QPM RF: 0 omega-3 fatty acids-vitamin E 1,000 mg Capsule 1 cap BID RF: 0 Breo Ellipta 200-25 mcg/dose blister with device 1 puff inhalation DAILY RF: 0 Discharge Orders: Discharge Order (Routine); Ordered 12/16/20 Ordered By: Victoriano Zaldivar Diet: advance to usual diet Activity on Discharge: As tolerated Stand Alone Forms: Patient Portal Discharge page Care Plan Goals: To stay healthy and out of the hospital. Health Concerns: COVID 19 Plan of Treatment: Finish decadron Maintain islation precautions for CDC guidelines CDC Guidelines for home isolation: - Stay away from others - Limit contact with pets and animals: If you must care for a pet, wash your hands before and after interacting with them - Wear a mask if you are sick - Cover your mouth and nose with a tissue when you cough or sneeze. Dispose of tissues in a lined trash can and wash your hands immediately with soap and water for at least 20 seconds. If soap and water are not available, clean hands with alcohol-based hand open source developer that contains at least 60% alcohol. - Clean your hands often with soap and water for at least 20 seconds - Avoid touching your eyes, nose and mouth with unwashed hands - Do not share dishes, drinking glasses, cups, eating utensils, towels, or bedding with other people in your home. After using these items, wash them thoroughly with soap and water or put in the package reinspector. - Clean high-touch surfaces in your isolation area (?sick room? and bathroom) every day; let a caregiver clean and disinfect high-touch surfaces in other areas of the home. Clean the area or item with soap and water or another detergent if it is dirty. Then, use a household disinfectant. Seek medical attention, but call first: - Seek medical care right away if your illness is worsening (for example, if you have difficulty breathing). - Call your doctor before going in: Before going to the doctor?s office or emergency room, call ahead and tell them your symptoms. They will tell you what to do. - If possible, put on a facemask before you enter the building. If you can?t put on a facemask, try to keep a safe distance from other people (at least 6 feet away). This will help protect the people in the office or waiting room. - Follow care instructions from your healthcare provider and local health department: Your local health authorities will give instructions on checking your symptoms and reporting information. Emergency warning signs for COVID-19: - Difficulty breathing or shortness of breath - Persistent pain or pressure in the chest - New confusion or inability to arouse - Bluish lips or face Assessment: 80 yo M admitted for hypoxia from COVID. Treated with steroids and improved. TO d/c home and complete course of steroids. Patient Instructions: COVID-19 (Coronavirus Disease 2019) (ED)
[2020-12-16 15:49] VITALS: BP 135/76; PULSE 73; RESP 19; TEMP 36.4; O2SAT 95
[2020-12-16 16:36] LABS: Glucose, Whole Blood 267 mg/dL (60-115)
== END 2020-12-16 19:13 | disposition home or self-care (01) | DRG 177 ==
LOC: HO.ED 12-13 01:31 → HO.EDOVER 12-13 02:09 → HO.IMC 12-14 15:03
PROVIDERS: Family Medicine; Internal Medicine; Admitting Provider Hospitalist; Emergency Provider Internal Medicine; PCP Pediatrics; Visit Provider Family Medicine
DX: U07.1 COVID-19 (principal); E11.10 Type 2 diabetes mellitus with ketoacidosis without coma; J12.82 Pneumonia due to coronavirus disease 2019; J96.01 Acute respiratory failure with hypoxia; N17.9 Acute kidney failure, unspecified; N18.4 Chronic kidney disease, stage 4 (severe); J45.909 Unspecified asthma, uncomplicated; R74.01 Elevation of levels of liver transaminase levels; E87.5 Hyperkalemia; I12.9 Hypertensive chronic kidney disease with stage 1 through stage 4 chronic kidney disease, or unspecified chronic kidney disease; E11.22 Type 2 diabetes mellitus with diabetic chronic kidney disease; E78.5 Hyperlipidemia, unspecified; Z79.82 Long term (current) use of aspirin; Z79.899 Other long term (current) drug therapy
CPT/HCPCS: 11104; 36415; 71045; 80048; 80053; 80076; 82728; 82947; 83036; 83605; 83615; 84145; 84484; 85025; 85379; 85610; 85730; 86140; 86704; 86706; 86803; 87040; 87340; 87389; 87635; 93005; 94640; 99285; J0696; J1650; J8540

== ENCOUNTER 2022-02-27 18:19 | Emergency (ER) | payer MEDICARE, SELFPAY ==
--- NOTE | ~2022-02-27 | XR_ITS ---
EXAMINATION: XR CHEST CLINICAL INFORMATION: Pneumonia COMPARISON: 12/12/2020 TECHNIQUE: Frontal view of the chest was obtained. FINDINGS: Multiple previously noted ill-defined infiltrates have cleared. At this time, no significant abnormality is noted involving the heart, lungs, mediastinum, bony thorax or soft tissues. XR/XR chest 1V IMPRESSION: No acute intrathoracic disease
[2022-02-27 18:33] VITALS: BP 128/74; PULSE 78; RESP 18; TEMP 36.8; O2SAT 96; BMI 35.5
[2022-02-27 19:00] LABS: Strep A Nucleic Acid Negative (Negative)
[2022-02-27 19:07] LABS: COVID-19 Test Negative (Negative); IDNOW Serial# 16C4AD1C
--- NOTE | 2022-02-27 23:34 | ED.URI ---
HPI - URI/Sore Throat General Chief Complaint: Upper Respiratory Symptoms Stated Complaint: coughing/throat pain Time Seen by Provider: 02/27/22 18:38 Source: patient Mode of arrival: ambulatory Limitations: no limitations History of Present Illness HPI Narrative: Patient comes to the emergency room complaining of cough, nausea and sore throat. His has the same symptoms. They report that last week they had a family member come from [place], visited them, stay at their house, left, and tested positive for COVID-19. Patient denies any chest pain or shortness of breath. Patient states his symptoms are very mild, states he is immunized for COVID. Related Data Home Medications Medication Instructions Recorded Confirmed amlodipine 5 mg tablet 1 tab PO QAM 12/13/20 12/13/20 aspirin 81 mg tablet,delayed 1 tab PO QPM 12/13/20 12/13/20 release atorvastatin 80 mg tablet 1 tab PO QPM 12/13/20 12/13/20 fluticasone furoate 200 1 puff inhalation DAILY 12/13/20 12/13/20 mcg-vilanterol 25 mcg/dose inhalation powder (Breo Ellipta) glipizide 10 mg tablet, extended 1 tab PO BID 12/13/20 12/13/20 release 24 hr montelukast 10 mg tablet 1 tab PO QPM 12/13/20 12/13/20 omega-3 fatty acids-vitamin E 1 cap BID 12/13/20 12/13/20 1,000 mg capsule omeprazole 20 mg capsule,delayed 1 cap PO QAM 12/13/20 12/13/20 release pioglitazone 45 mg tablet 1 tab PO QAM 12/13/20 12/13/20 valsartan 160 1 tab PO QAM 12/13/20 12/13/20 mg-hydrochlorothiazide 12.5 mg tablet Previous Rx's Medication Instructions Recorded albuterol sulfate 90 mcg/actuation 2 puff inhalation Q6H PRN 12/13/20 aerosol inhaler (Proventil HFA) shortness of breath or wheezing #8.5 grams azithromycin 250 mg tablet 250 mg PO DAILY 4 days #4 tabs 12/13/20 (Zithromax) codeine 10 mg-guaifenesin 100 mg/5 5 ml PO Q6H PRN cough #237 mL 04/17/21 mL oral liquid dexamethasone 6 mg tablet 6 mg PO DAILY #7 tabs 12/13/20 (Decadron) Allergies Allergy/AdvReac Type Severity Reaction Status Date / Time No Known Allergies Allergy Verified 12/14/20 17:48 Review of Systems Review of Systems: Constitutional : No Weight loss, No Fever, No Chills, No Night Sweats, No Fatigue, No Malaise ENT/Mouth : No Hearing loss, No Ear Pain, No Nasal Congestion, No Sinus Pain, No Hoarseness, mild sore throat, No Rhinorrhea, No Swallowing Difficulty Eyes: No Eye Pain, No Swelling, No Redness, No Foreign Body, No Discharge, No Vision Changes Cardiovascular : No Chest Pain, No SOB, No Dyspnea on Exertion, No Orthopnea, No Edema, No Palpitations Respiratory : Complaining of cough, mild sore throat, no dyspnea Gastrointestinal : No Nausea, No Vomiting, No Diarrhea, No Constipation, No abdominal Pain, No Hematochezia, No Melena Genitourinary : no irregular bleeding, No Dysuria, No Urinary Frequency, No Hematuria, No Urinary Incontinence, No Urgency, No Flank Pain, No Urinary Flow Changes, No Hesitancy Musculoskeletal : No joint pain, No Myalgias, No Joint Swelling Skin : No Skin Lesions, No rash Neuro : No Weakness, No Numbness, No Paresthesias, No Loss of Consciousness, No Dizziness, No Headache Psych : No Anxiety/Panic, No Depression, No SI/HI/AH/VH, No Social Issues, Heme/Lymph: No Bruising, No Bleeding,No Lymphadenopathy Endocrine : No Polyuria, No Polydipsia, No Temperature Intolerance [facility] Past Medical History Medical History Chronic kidney failure Social History Social History Household Members: Spouse Housing: House Do you presently have visiting nurse or other home services: Yes Alcohol intake: unknown Second Hand Smoke Exposure: No service: No Current occupational status: unemployed Physical Exam Vital Signs: Vital Signs: Last Vital Signs Temp 98.3 F 02/27/22 18:33 Pulse 78 02/27/22 18:33 Resp 18 02/27/22 18:33 BP 128/74 02/27/22 18:33 Pulse Ox 96 02/27/22 18:33 O2 Del Method 07/02/22 18:33 BMI result Body Mass Index 35.5 Const: Other: Appearance: Alert. Oriented X3. No acute distress. Eyes: Pupils equal, round and reactive to light. ENT: Pharynx normal. Neck: Normal inspection. Neck supple. No lymph nodes noted. No crepitus CVS: Normal heart rate and rhythm. Pulses normal. Normal S1 and S2 Respiratory: No respiratory distress. Breath sounds normal. No Wheezing. No rales Abdomen: Soft and nontender. No rigidity. No distention. Skin: Skin warm and dry. Normal skin color. Normal skin turgor. Extremities: No lower extremity edema. No Lacerations. No Rash Neuro: Oriented X 3. No motor deficit. No sensory deficit. Moving all extremities. No slurred speech. CN 2 through 12 grossly intact Psych: calm, cooperative, normal affect Course Course Course Narrative: Patient states that his symptoms are nearly resolved. Denies chest pain, no shortness of breath, x-ray negative, COVID 19 test negative. His did test positive for COVID-19. I discussed with the patient that if he has any further symptoms, he needs to be retested in couple of days. MDM - URI/Sore Throat Lab Data Labs: Lab Results 02/27/22 02/27/22 Range/Units 18:38 18:38 COVID-19 (KRYSTIN) Negative (Negative) COVID-19 Clin Com See Note S. pyogenes GrpA MADHURI Negative (Negative) Imaging Data Chest x-ray: Radiologist's impression: FINDINGS: Multiple previously noted ill-defined infiltrates have cleared. At this time, no significant abnormality is noted involving the heart, lungs, mediastinum, bony thorax or soft tissues. XR/XR chest 1V IMPRESSION: No acute intrathoracic disease Discharge Plan Discharge Clinical Impression: Acute viral syndrome Patient Disposition: Home, Self-Care Instructions: Acute Nausea and Vomiting (ED) Additional Instructions: Please follow-up with your primary care physician tomorrow. If you have any worsening or new symptoms, please return to the emergency room or call 911 Prescriptions: No Action dexamethasone [Decadron] 6 mg tablet 6 mg PO DAILY Qty: 7 0RF codeine-guaifenesin 10-100 mg/5 mL liquid 5 ml PO Q6H PRN (Reason: cough) Qty: 237 0RF albuterol sulfate [Proventil HFA] 90 mcg/actuation HFA aerosol inhaler 2 puff inhalation Q6H PRN (Reason: shortness of breath or wheezing) Qty: 8.5 0RF azithromycin [Zithromax] 250 mg tablet 250 mg PO DAILY 4 Days Qty: 4 0RF atorvastatin 80 mg tablet 1 tab PO QPM glipizide 10 mg tablet extended release 24hr 1 tab PO BID valsartan-hydrochlorothiazide 160-12.5 mg tablet 1 tab PO QAM pioglitazone 45 mg tablet 1 tab PO QAM amlodipine 5 mg tablet 1 tab PO QAM aspirin 81 mg tablet,delayed release (DR/EC) 1 tab PO QPM omeprazole 20 mg capsule,delayed release(DR/EC) 1 cap PO QAM montelukast 10 mg tablet 1 tab PO QPM omega-3 fatty acids-vitamin E 1,000 mg Capsule 1 cap BID Breo Ellipta 200-25 mcg/dose blister with device 1 puff inhalation DAILY
== END 2022-02-27 23:51 | disposition home or self-care (01) ==
PROVIDERS: Emergency Provider Emergency Medicine; PCP Family Medicine
DX: B34.9 Viral infection, unspecified (principal); Z20.822 Contact with and (suspected) exposure to COVID-19; R05.9 Cough, unspecified; J02.9 Acute pharyngitis, unspecified; Z79.82 Long term (current) use of aspirin
CPT/HCPCS: 71045; 87635; 87651; 99283

== ENCOUNTER 2022-11-18 14:32 | Outpatient (REF) | payer OTHER, SELFPAY ==
[2022-11-18 14:43] LABS: MANUAL DIFF FLAG NO
[2022-11-18 15:44] LABS: Basophils Percent Auto 0.4 % (0-2); Eosinophils Absolute Auto 0.4 X10*3/uL (0.0-0.4); Eosinophils Percent Auto 3.8 % (0-4); Hematocrit 39.2 % (42.0-52.0); Hemoglobin 12.6 g/dl (14.0-18.0); Imm Gran Abs Auto 0.03 X10*3/uL (0.00-0.03); Imm Gran Pct Auto 0.3 % (0.0-0.4); Lymphocytes Absolute Auto 2.3 X10*3/uL (1.2-4.9); Lymphocytes Percent Auto 24.4 % (20-40); Mean Corpuscular HGB Conc 32.1 g/dl (31.0-36.0); Mean Corpuscular Hemoglobin 27.9 pg (27.0-33.0); Mean Corpuscular Volume 86.7 fL (80.0-98.0); Mean Platelet Volume 9.8 fL (9.4-12.4); Monocytes Percent Auto 10.5 % (2-11); Neutrophils Absolute Auto 5.8 x10*3/uL (2.0-8.3); Neutrophils Percent Auto 60.6 % (45-73); Platelet Count 276 X10*3/uL (160-400); Red Blood Count 4.52 X10*6/uL (4.60-5.80); Red Cell Distribution Width 13.8 % (11.0-16.0); White Blood Count 9.5 X10*3/uL (4.8-10.8)
[2022-11-18 16:23] LABS: Anion Gap 14 (12-20); Blood Urea Nitrogen 39 mg/dL (9-16); Calcium 9.3 mg/dL (8.4-10.2); Carbon Dioxide 26 mmol/L (22-29); Chloride 106 mmol/L (96-108); Estimated Glomerular Filt Rate 28; Phosphorus 2.8 mg/dL (2.7-4.5); Potassium 4.8 mmol/L (3.3-5.1); Sodium 141 mmol/L (135-145)
[2022-11-18 16:41] LABS: Vitamin D 25-OH Total 27.2 ng/mL (>30)
[2022-11-19 16:23] LABS: Calcium (PTHI) 9.4 mg/dL (8.6-10.3); PTHI 115 pg/mL (16-77)
== END 2022-11-18 14:33 | disposition home or self-care (01) ==
LOC: HO.LAB 14:32
PROVIDERS: Visit Provider Internal Medicine Nephrology
DX: I12.9 Hypertensive chronic kidney disease with stage 1 through stage 4 chronic kidney disease, or unspecified chronic kidney disease (principal); N18.32 Chronic kidney disease, stage 3b
CPT/HCPCS: 36415; 80051; 82306; 82310; 82565; 83970; 84100; 84520; 85025

== ENCOUNTER 2023-09-30 10:59 | Outpatient (REF) | payer OTHER, SELFPAY ==
[2023-09-30 11:52] LABS: MANUAL DIFF FLAG NO
[2023-09-30 11:56] LABS: Basophils Percent Auto 0.4 % (0-2); Eosinophils Absolute Auto 0.2 X10*3/uL (0.0-0.4); Eosinophils Percent Auto 2.6 % (0-4); Imm Gran Abs Auto 0.02 X10*3/uL (0.00-0.03); Imm Gran Pct Auto 0.2 % (0.0-0.4); Lymphocytes Absolute Auto 1.8 X10*3/uL (1.2-4.9); Lymphocytes Percent Auto 19.5 % (20-40); Mean Corpuscular HGB Conc 33.3 g/dl (31.0-36.0); Mean Corpuscular Hemoglobin 28.3 pg (27.0-33.0); Mean Corpuscular Volume 84.8 fL (80.0-98.0); Monocytes Absolute Auto 0.8 X10*3/uL (0.1-1.2); Monocytes Percent Auto 8.6 % (2-11); Neutrophils Absolute Auto 6.4 x10*3/uL (2.0-8.3); Neutrophils Percent Auto 68.7 % (45-73); Platelet Count 255 X10*3/uL (160-400); Red Blood Count 4.95 X10*6/uL (4.60-5.80); Red Cell Distribution Width 13.6 % (11.0-16.0); White Blood Count 9.3 X10*3/uL (4.8-10.8)
[2023-09-30 12:38] LABS: Parathyroid Hormone Intact 158.7 pg/mL (8.7-77.1)
[2023-09-30 12:42] LABS: Anion Gap 15 (12-20); Blood Urea Nitrogen 46 mg/dL (9-16); Calcium 9.4 mg/dL (8.4-10.2); Carbon Dioxide 24 mmol/L (22-29); Chloride 106 mmol/L (96-108); Estimated Glomerular Filt Rate 30; Phosphorus 2.7 mg/dL (2.7-4.5); Potassium 4.5 mmol/L (3.3-5.1); Sodium 140 mmol/L (135-145)
[2023-09-30 13:00] LABS: Vitamin D 25-OH Total 26.6 ng/mL (>30)
== END 2023-09-30 11:00 | disposition home or self-care (01) ==
LOC: HO.LAB 10:59
PROVIDERS: PCP Internal Medicine; Visit Provider Internal Medicine Nephrology
DX: I12.9 Hypertensive chronic kidney disease with stage 1 through stage 4 chronic kidney disease, or unspecified chronic kidney disease (principal); N18.4 Chronic kidney disease, stage 4 (severe); N25.81 Secondary hyperparathyroidism of renal origin
CPT/HCPCS: 36415; 80051; 82306; 82310; 82565; 83970; 84100; 84520; 85025; 99212

== ENCOUNTER 2023-09-30 10:59 | Outpatient (AMB) | payer OTHER, SELFPAY ==
--- NOTE | 2023-09-30 11:07 | HO.NEPHOV ---
HPI HPI Comments History of Present Illness Details I would the privilege of seeing Celestino in follow-up of his chronic kidney disease and hypertension. He feels well. He has not had any nephrolithiasis, hematuria, flank pain, pedal edema, urinary symptoms, chest pain, orthostatic symptoms, paroxysmal nocturnal dyspnea, orthopnea. His blood sugar control has been fair. He is claimed to be compliant with his medication. He avoids any nonsteroidal anti-inflammatory medication intake. He had no new systemic complaints. All other systems have been reviewed and were negative FOR[facility], [facility] Medical History (Updated 09/30/23 @ 13:23 by Deon Brown MD) Diabetes Hypertension Chronic kidney failure Family History (Updated 09/30/23 @ 11:18 by Jessie Dhaliwal MA) Brother Diabetes Social History (Updated 09/30/23 @ 11:17 by Jessie Dhaliwal MA) Household Members: Spouse Housing: House Do you presently have visiting nurse or other home services: Yes Alcohol intake: former Patient Tobacco Use Status: Never used Tobacco Second Hand Smoke Exposure: No service: No Current occupational status: unemployed Vital Signs 09/30/23 11:13 Height 5 ft 2 in Weight 181 lb BMI 33.1 BP 110/70 Blood Pressure Location Lt brachial Position Sitting Pulse 77 Pulse Source Pulse Oximeter Pulse Oximetry (%) 96 Oxygen Delivery Method Room Air Physical Exam Vital Signs: Last Vital Signs Pulse 77 09/30/23 11:13 BP 110/70 09/30/23 11:13 Pulse Ox 96 09/30/23 11:13 Oxygen Delivery Method Room Air 09/30/23 11:13 BMI result Body Mass Index 33.1 Const General: comfortable and no acute distress Orientation/consciousness: patient oriented x3 HEENT Head: Yes normocephalic Mouth: Normal oral and palatal mucosa present Eyes EOM: EOMs intact bilaterally Neck Neck: Yes supple Resp Auscultation: clear to auscultation bilaterally Cardio Jugular venous distension: no JVD Rate: regular rate GI Palpation (GI): Soft to palpation Auscultation: normal bowel sounds General: Yes no CVA tenderness Back/Spine/Pelvis Back: no CVA tenderness Skin General skin exam: no rashes or lesions noted Neuro General: patient oriented x3 and moves all extremities Extrem General: Yes no pedal edema Assessment & Plan Assessment & Plan (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 His blood pressure is at goal. He is on angiotensin receptor tika. His renal functions have been stable. He has a great candidate for JardiVolt. He should maintain good hydration. He should avoid nonsteroidal anti-inflammatory medications. I did not make any medication changes today. I shall follow his blood work and optimize his medications for continued renal care. All questions answered. Follow-up given. Orders: Orders Creatinine Today I10 - Essential (primary) hypertension, I12.9 - Hypertensive chronic kidney disease with stage 1 through stage 4 chronic kidney disease, or unspecified chronic kidney disease, N18.4 - Chronic kidney disease, stage 4 (severe) Electrolytes Today I10 - Essential (primary) hypertension, I12.9 - Hypertensive chronic kidney disease with stage 1 through stage 4 chronic kidney disease, or unspecified chronic kidney disease, N18.4 - Chronic kidney disease, stage 4 (severe) Phosphorus Today I10 - Essential (primary) hypertension, I12.9 - Hypertensive chronic kidney disease with stage 1 through stage 4 chronic kidney disease, or unspecified chronic kidney disease, N18.4 - Chronic kidney disease, stage 4 (severe) Vitamin D 25-OH Total Today I10 - Essential (primary) hypertension, I12.9 - Hypertensive chronic kidney disease with stage 1 through stage 4 chronic kidney disease, or unspecified chronic kidney disease, N18.4 - Chronic kidney disease, stage 4 (severe) Blood Urea Nitrogen Today I10 - Essential (primary) hypertension, I12.9 - Hypertensive chronic kidney disease with stage 1 through stage 4 chronic kidney disease, or unspecified chronic kidney disease, N18.4 - Chronic kidney disease, stage 4 (severe) Calcium Today I10 - Essential (primary) hypertension, I12.9 - Hypertensive chronic kidney disease with stage 1 through stage 4 chronic kidney disease, or unspecified chronic kidney disease, N18.4 - Chronic kidney disease, stage 4 (severe) Complete Blood Count Auto Diff Today I10 - Essential (primary) hypertension, I12.9 - Hypertensive chronic kidney disease with stage 1 through stage 4 chronic kidney disease, or unspecified chronic kidney disease, N18.4 - Chronic kidney disease, stage 4 (severe) Parathyroid Hormone Intact Today I10 - Essential (primary) hypertension, I12.9 - Hypertensive chronic kidney disease with stage 1 through stage 4 chronic kidney disease, or unspecified chronic kidney disease, N18.4 - Chronic kidney disease, stage 4 (severe) Coding Level of Care Code Est Pt Level 4 (81462) Diagnoses CKD stage 4 secondary to hypertension I12.9; N18.4 Primary hypertension I10 Hypertension type: primary hypertension Secondary hyperparathyroidism (of renal origin) N25.81 Results Reviewed Nephrology Results: Hgb 14.0 g/dl (14.0-18.0) 09/30/23 WBC 9.3 X10*3/uL (4.8-10.8) 09/30/23 Plt Count 255 X10*3/uL (160-400) 09/30/23 Sodium 140 mmol/L (135-145) 09/30/23 Potassium 4.5 mmol/L (3.3-5.1) 09/30/23 Chloride 106 mmol/L (96-108) 09/30/23 Carbon Dioxide 24 mmol/L (22-29) 09/30/23 BUN 46 mg/dL (9-16) H 09/30/23 Creatinine 2.12 mg/dL (0.5-1.4) H 09/30/23 Calcium 9.4 mg/dL (8.4-10.2) 09/30/23 Phosphorus 2.7 mg/dL (2.7-4.5) 09/30/23 PTH Intact 158.7 pg/mL (8.7-77.1) H 09/30/23
[2023-09-30 11:13] VITALS: BP 110/70; PULSE 77; O2SAT 96; BMI 33.1
== END 2023-09-30 11:32 | disposition home or self-care (01) ==
PROVIDERS: PCP Family Medicine; Visit Provider Internal Medicine Nephrology
DX: I12.9 Hypertensive chronic kidney disease with stage 1 through stage 4 chronic kidney disease, or unspecified chronic kidney disease (principal); N18.4 Chronic kidney disease, stage 4 (severe); I10 Essential (primary) hypertension; N25.81 Secondary hyperparathyroidism of renal origin
CPT/HCPCS: 99214

== ENCOUNTER 2023-12-30 10:08 | Outpatient (REF) | payer OTHER, SELFPAY ==
[2023-12-30 12:28] LABS: Cholesterol 202 mg/dL (<200); HDL Cholesterol 34 mg/dL (>40); LDL Cholesterol Calculated 136 mg/dL (<100); Triglycerides 161 mg/dL (<150)
[2023-12-30 12:30] LABS: Creatinine Urine 79.37 mg/dL
[2023-12-30 13:14] LABS: Microalbum/Creatinine Ratio Ur 1068.4 ug/mg cr (<30)
== END 2023-12-30 10:09 | disposition home or self-care (01) ==
LOC: HO.HHCL 10:08
PROVIDERS: Visit Provider Internal Medicine
DX: E11.22 Type 2 diabetes mellitus with diabetic chronic kidney disease (principal); N18.32 Chronic kidney disease, stage 3b; Z79.4 Long term (current) use of insulin
CPT/HCPCS: 36415; 80061; 82043; 82570

== ENCOUNTER 2024-02-01 10:10 | Outpatient (AMB) | payer OTHER, SELFPAY ==
--- NOTE | 2024-02-01 10:22 | HO.NEPHOV ---
Vital Signs 02/01/24 10:41 Height 5 ft 2 in Weight 172 lb 6 oz BMI 31.5 BP 120/70 Blood Pressure Location Lt brachial Position Sitting Pulse 77 Pulse Source Pulse Oximeter Pulse Oximetry (%) 94 Oxygen Delivery Method Room Air Intake Visit Reasons: 3 mon follow up/ Voicemail not set Intake Note: Assistant County Engineer services refused, refusal form signed and scanned into chart. Assistant County Engineer Required: Yes Assistant County Engineer Name: Aurelia Mcbride (FRANCISCO) Accompanied by: Other Relationship Allergies No Known Allergies Allergy (Verified 02/01/24 10:49) HPI Comments Details: Celestino was seen in follow-up of his chronic kidney disease and hypertension. He feels well. He has not had any nephrolithiasis, hematuria, flank pain, pedal edema, urinary symptoms, chest pain, orthostatic symptoms, paroxysmal nocturnal dyspnea, orthopnea. His blood sugar control has been fair. He is claimed to be compliant with his medication. He avoids any nonsteroidal anti-inflammatory medication intake. He had no new systemic complaints. All other systems have been reviewed and were negative COUNT INCLUDES [facility] Medical History (Updated 02/01/24 @ 10:48 by Deon Brown MD) Diabetes Hypertension Chronic kidney failure Family History (Updated 09/30/23 @ 11:18 by Jessie Dhaliwal MA) Brother Diabetes Social History (Updated 09/30/23 @ 11:17 by Jessie Dhaliwal MA) Household Members: Spouse Housing: House Do you presently have visiting nurse or other home services: Yes Alcohol intake: former Patient Tobacco Use Status: Never used Tobacco Second Hand Smoke Exposure: No service: No Current occupational status: unemployed Physical Exam Const General: comfortable and no acute distress Orientation/consciousness: patient oriented x3 HEENT Head: Yes normocephalic Mouth: Normal oral and palatal mucosa present Eyes EOM: EOMs intact bilaterally Neck Neck: Yes supple Resp Auscultation: clear to auscultation bilaterally Cardio Jugular venous distension: no JVD Rate: regular rate GI Palpation (GI): Soft to palpation Auscultation: normal bowel sounds General: Yes no CVA tenderness Back/Spine/Pelvis Back: no CVA tenderness Skin General skin exam: no rashes or lesions noted Neuro General: patient oriented x3 and moves all extremities Extrem General: Yes no pedal edema Results Reviewed Nephrology Results: Hgb 14.0 g/dl (14.0-18.0) 02/02/24 WBC 9.3 X10*3/uL (4.8-10.8) 09/30/23 Plt Count 255 X10*3/uL (160-400) 09/30/23 Sodium 140 mmol/L (135-145) 09/30/23 Potassium 4.5 mmol/L (3.3-5.1) 09/30/23 Chloride 106 mmol/L (96-108) 09/30/23 Carbon Dioxide 24 mmol/L (22-29) 09/30/23 BUN 46 mg/dL (9-16) H 09/30/23 Creatinine 2.12 mg/dL (0.5-1.4) H 09/30/23 Calcium 9.4 mg/dL (8.4-10.2) 09/30/23 Phosphorus 2.7 mg/dL (2.7-4.5) 09/30/23 PTH Intact 158.7 pg/mL (8.7-77.1) H 09/30/23 Urine Creatinine 79.37 mg/dL 12/30/23 Assessment & Plan Assessment & Plan (1) Hypertension: Code(s): I10 - Essential (primary) hypertension Category: Medical Qualifiers: Hypertension type: primary hypertension Qualified Code(s): I10 - Essential (primary) hypertension (2) Secondary hyperparathyroidism (of renal origin): Code(s): N25.81 - Secondary hyperparathyroidism of renal origin Category: Medical (3) CKD stage 3b, GFR 30-44 ml/min: Code(s): N18.32 - Chronic kidney disease, stage 3b Category: Medical Plan Celestino has baseline stage III B CKD. His blood pressure is at goal. He is on angiotensin receptor tika. His renal functions had been stable. He is on Vitamin D. I ordered a 24 hour urine for GFR estimation. He has a great candidate for Jardiance. He should maintain good hydration. He should avoid nonsteroidal anti-inflammatory medications. I did not make any medication changes today. I shall follow his blood work and optimize his medications for continued renal care. All questions answered. Follow-up given. Orders: Orders Electrolytes Today I10 - Essential (primary) hypertension, N18.32 - Chronic kidney disease, stage 3b, N25.81 - Secondary hyperparathyroidism of renal origin Creatinine Clearance Urine 24U Today I10 - Essential (primary) hypertension, N18.32 - Chronic kidney disease, stage 3b, N25.81 - Secondary hyperparathyroidism of renal origin Creatinine Today I10 - Essential (primary) hypertension, N18.32 - Chronic kidney disease, stage 3b, N25.81 - Secondary hyperparathyroidism of renal origin Blood Urea Nitrogen Today I10 - Essential (primary) hypertension, N18.32 - Chronic kidney disease, stage 3b, N25.81 - Secondary hyperparathyroidism of renal origin Coding Level of Care Code Est Pt Level 4 (54198) Diagnoses Primary hypertension I10 Hypertension type: primary hypertension Secondary hyperparathyroidism (of renal origin) N25.81 CKD stage 3b, GFR 30-44 ml/min N18.32
[2024-02-01 10:41] VITALS: BP 120/70; PULSE 77; O2SAT 94; BMI 31.5
== END 2024-02-01 11:00 | disposition home or self-care (01) ==
PROVIDERS: PCP Family Medicine; Visit Provider Internal Medicine Nephrology
DX: I10 Essential (primary) hypertension (principal); N25.81 Secondary hyperparathyroidism of renal origin; N18.32 Chronic kidney disease, stage 3b
CPT/HCPCS: 99214

== ENCOUNTER → 2024-02-01 10:10 | Outpatient (BNVA) | payer OTHER, SELFPAY | PROVIDERS: PCP Family Medicine; Visit Provider Internal Medicine Nephrology | DX: I10 Essential (primary) hypertension (principal); N25.81 Secondary hyperparathyroidism of renal origin; N18.32 Chronic kidney disease, stage 3b | CPT/HCPCS: 99212 ==

== ENCOUNTER 2024-05-02 09:57 | Outpatient (AMB) | payer OTHER, SELFPAY ==
[2024-05-02 10:13] VITALS: BP 114/50; PULSE 72; O2SAT 97; BMI 29.8
--- NOTE | 2024-05-02 10:13 | HO.NEPHOV_ITS ---
Vital Signs 05/02/24 10:13 Height 5 ft 2 in Weight 163 lb 2 oz BMI 29.8 BP 114/50 L Blood Pressure Location Rt brachial Position Sitting Pulse 72 Pulse Source Pulse Oximeter Pulse Oximetry (%) 97 Oxygen Delivery Method Room Air Intake Visit Reasons: CKD / 3 MO FU- LVM Veterinary Practice Manager Required: Yes Veterinary Practice Manager Services: Veterinary Practice Manager Offered & Declined (Veterinary Practice Manager services refused/ refusal form signed and scanned into chart) Veterinary Practice Manager Name: Aurelia Mcbride- Daughter Accompanied by: Other Relationship Allergies No Known Allergies Allergy (Verified 05/02/24 10:15) HPI Comments Details: Celestino was seen in follow-up of his chronic kidney disease and hypertension. He feels well. He has not had any nephrolithiasis, hematuria, flank pain, pedal edema, urinary symptoms, chest pain, orthostatic symptoms, paroxysmal nocturnal dyspnea, orthopnea. His blood sugar control has been fair. He is claimed to be compliant with his medication. He avoids any nonsteroidal anti-inflammatory medication intake. He had no new systemic complaints. All other systems have been reviewed and were negative [facility] Medical History (Updated 02/01/24 @ 10:48 by Deon Brown MD) Diabetes Hypertension Chronic kidney failure Family History Brother Diabetes Social History Household Members: Spouse Housing: House Do you presently have visiting nurse or other home services: Yes Alcohol intake: former Patient Tobacco Use Status: Never used Tobacco Second Hand Smoke Exposure: No service: No Current occupational status: unemployed Review of Systems Const All systems reviewed & are unremarkable except as noted in HPI and below Physical Exam Vital Signs: Last Vital Signs Pulse 72 05/02/24 10:13 BP 114/50 L 05/02/24 10:13 Pulse Ox 97 05/02/24 10:13 Oxygen Delivery Method Room Air 05/02/24 10:13 BMI result Body Mass Index 29.8 Const General: comfortable and no acute distress Orientation/consciousness: patient oriented x3 HEENT Head: Yes normocephalic Mouth: Normal oral and palatal mucosa present Eyes EOM: EOMs intact bilaterally Neck Neck: Yes supple Resp Auscultation: clear to auscultation bilaterally Cardio Jugular venous distension: no JVD Rate: regular rate GI Palpation (GI): Soft to palpation Auscultation: normal bowel sounds General: Yes no CVA tenderness Back/Spine/Pelvis Back: no CVA tenderness Skin General skin exam: no rashes or lesions noted Neuro General: patient oriented x3 and moves all extremities Extrem General: Yes no pedal edema Results Reviewed Nephrology Results: Hgb 14.0 g/dl (14.0-18.0) 09/30/23 WBC 9.3 X10*3/uL (4.8-10.8) 09/30/23 Plt Count 255 X10*3/uL (160-400) 09/30/23 Sodium 140 mmol/L (135-145) 09/30/23 Potassium 4.5 mmol/L (3.3-5.1) 09/30/23 Chloride 106 mmol/L (96-108) 09/30/23 Carbon Dioxide 24 mmol/L (22-29) 09/30/23 BUN 46 mg/dL (9-16) H 09/30/23 Creatinine 2.12 mg/dL (0.5-1.4) H 09/30/23 Calcium 9.4 mg/dL (8.4-10.2) 09/30/23 Phosphorus 2.7 mg/dL (2.7-4.5) 09/30/23 PTH Intact 158.7 pg/mL (8.7-77.1) H 09/30/23 Urine Creatinine 79.37 mg/dL 12/30/23 Assessment & Plan Assessment & Plan (1) CKD stage 3b, GFR 30-44 ml/min: Code(s): N18.32 - Chronic kidney disease, stage 3b Category: Medical (2) Secondary hyperparathyroidism (of renal origin): Code(s): N25.81 - Secondary hyperparathyroidism of renal origin Category: Medical (3) Hypertension: Code(s): I10 - Essential (primary) hypertension Category: Medical Qualifiers: Hypertension type: primary hypertension Qualified Code(s): I10 - Essential (primary) hypertension (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 His blood pressure is at goal. He is on angiotensin receptor tika. His renal functions had been stable. He is on Vitamin D. I ordered a 24 hour urine for GFR estimation. He has a great candidate for Jardiance. He should maintain good hydration. He should avoid nonsteroidal anti-inflammatory medications. I did not make any medication changes today. I shall follow his blood work and optimize his medications for continued renal care. All questions answered. Follow-up given Coding Level of Care Code Est Pt Level 4 (26287) Diagnoses CKD stage 3b, GFR 30-44 ml/min N18.32 Secondary hyperparathyroidism (of renal origin) N25.81 Primary hypertension I10 Hypertension type: primary hypertension CKD stage 4 secondary to hypertension I12.9; N18.4
== END 2024-05-02 10:44 | disposition home or self-care (01) ==
PROVIDERS: PCP Family Medicine; Visit Provider Internal Medicine Nephrology
DX: I12.9 Hypertensive chronic kidney disease with stage 1 through stage 4 chronic kidney disease, or unspecified chronic kidney disease (principal); N18.32 Chronic kidney disease, stage 3b; N25.81 Secondary hyperparathyroidism of renal origin; I10 Essential (primary) hypertension; N18.4 Chronic kidney disease, stage 4 (severe)
CPT/HCPCS: 99214

== ENCOUNTER → 2024-05-02 09:57 | Outpatient (BNVA) | payer OTHER, SELFPAY | PROVIDERS: PCP Family Medicine; Visit Provider Internal Medicine Nephrology | DX: I12.9 Hypertensive chronic kidney disease with stage 1 through stage 4 chronic kidney disease, or unspecified chronic kidney disease (principal); N18.4 Chronic kidney disease, stage 4 (severe); N25.81 Secondary hyperparathyroidism of renal origin | CPT/HCPCS: 99212 ==

== ENCOUNTER 2024-05-04 09:38 | Outpatient (REF) | payer OTHER, SELFPAY ==
[2024-05-04 10:32] LABS: Anion Gap 12 (12-20); Blood Urea Nitrogen 46 mg/dL (9-16); Carbon Dioxide 25 mmol/L (22-29); Chloride 107 mmol/L (96-108); Estimated Glomerular Filt Rate 32; Potassium 3.9 mmol/L (3.3-5.1); Sodium 140 mmol/L (135-145)
[2024-05-04 12:13] LABS: Creatinine, mg/dL 57.06
[2024-05-04 14:54] LABS: Creatinine, 24Hr Urine 0.7 G/Day (1.0-2.0); Total Volume 24 Hour Urine 1250 mL
[2024-05-04 15:54] LABS: Creatinine (CrCl) 2.03 mg/dL (0.5-1.4); Creatinine Clearance 24.3 mL/min (85-125)
== END 2024-05-04 09:39 | disposition home or self-care (01) ==
LOC: HO.LAB 09:38
PROVIDERS: Absent Provider Internal Medicine; PCP Internal Medicine; Visit Provider Internal Medicine Nephrology
DX: I12.9 Hypertensive chronic kidney disease with stage 1 through stage 4 chronic kidney disease, or unspecified chronic kidney disease (principal); N18.32 Chronic kidney disease, stage 3b; N25.81 Secondary hyperparathyroidism of renal origin
CPT/HCPCS: 36415; 80051; 82565; 82575; 84520

== ENCOUNTER 2024-08-01 11:37 | Outpatient (AMB) | payer OTHER, SELFPAY ==
--- NOTE | 2024-08-01 11:55 | HO.NEPHOV_ITS ---
Vital Signs 08/01/24 11:57 Height 5 ft 2 in Weight 154 lb 6 oz BMI 28.2 BP 118/60 Blood Pressure Location Rt brachial Position Sitting Pulse 76 Pulse Source Pulse Oximeter Pulse Oximetry (%) 96 Oxygen Delivery Method Room Air Intake Visit Reasons: 3 mon follow up/ Conf Furnace Room Supervisor Required: Yes Furnace Room Supervisor Language: Spa Concierge Services: Furnace Room Supervisor Offered & Declined ([facility] Furnace Room Supervisor services refused. ) Furnace Room Supervisor Name: Aurelia GalindoFRANCISCO Accompanied by: Other Relationship Allergies No Known Allergies Allergy (Verified 08/01/24 11:56) HPI Comments Details: Celestino was seen in follow-up of his chronic kidney disease and hypertension. He feels well. He has not had any nephrolithiasis, hematuria, flank pain, pedal edema, urinary symptoms, chest pain, orthostatic symptoms, paroxysmal nocturnal dyspnea, orthopnea. His blood sugar control has been fair. He is claimed to be compliant with his medication. He avoids any nonsteroidal anti-inflammatory medication intake. He had no new systemic complaints. All other systems have been reviewed and were negative [facility] Medical History (Updated 02/01/24 @ 10:48 by Deon Brown MD) Diabetes Hypertension Chronic kidney failure Family History Brother Diabetes Social History Household Members: Spouse Housing: House Do you presently have visiting nurse or other home services: Yes Alcohol intake: former Patient Tobacco Use Status: Never used Tobacco Second Hand Smoke Exposure: No service: No Current occupational status: unemployed Review of Systems Const All systems reviewed & are unremarkable except as noted in HPI and below Physical Exam Vital Signs: Last Vital Signs Pulse 76 08/01/24 11:57 BP 118/60 08/01/24 11:57 Pulse Ox 96 08/01/24 11:57 Oxygen Delivery Method Room Air 08/01/24 11:57 BMI result Body Mass Index 28.2 Const General: comfortable and no acute distress Orientation/consciousness: patient oriented x3 HEENT Head: Yes normocephalic Mouth: Normal oral and palatal mucosa present Eyes EOM: EOMs intact bilaterally Neck Neck: Yes supple Resp Auscultation: clear to auscultation bilaterally Cardio Jugular venous distension: no JVD Rate: regular rate GI Palpation (GI): Soft to palpation Auscultation: normal bowel sounds General: Yes no CVA tenderness Back/Spine/Pelvis Back: no CVA tenderness Skin General skin exam: no rashes or lesions noted Neuro General: patient oriented x3 and moves all extremities Extrem General: Yes no pedal edema Results Reviewed Nephrology Results: Hgb 14.0 g/dl (14.0-18.0) 09/30/23 WBC 9.3 X10*3/uL (4.8-10.8) 09/30/23 Plt Count 255 X10*3/uL (160-400) 09/30/23 Sodium 140 mmol/L (135-145) 05/04/24 Potassium 3.9 mmol/L (3.3-5.1) 05/04/24 Chloride 107 mmol/L (96-108) 05/04/24 Carbon Dioxide 25 mmol/L (22-29) 05/04/24 BUN 46 mg/dL (9-16) H 05/04/24 Creatinine 2.03 mg/dL (0.5-1.4) H 05/04/24 Calcium 9.4 mg/dL (8.4-10.2) 09/30/23 Phosphorus 2.7 mg/dL (2.7-4.5) 09/30/23 PTH Intact 158.7 pg/mL (8.7-77.1) H 09/30/23 Urine Creatinine 79.37 mg/dL 12/30/23 Assessment & Plan Assessment & Plan (1) CKD stage 3b, GFR 30-44 ml/min: Code(s): N18.32 - Chronic kidney disease, stage 3b Category: Medical (2) Secondary hyperparathyroidism (of renal origin): Code(s): N25.81 - Secondary hyperparathyroidism of renal origin Category: Medical (3) Hypertension: Code(s): I10 - Essential (primary) hypertension Category: Medical Qualifiers: Hypertension type: primary hypertension Qualified Code(s): I10 - Essential (primary) hypertension Plan Celestino has baseline stage III B CKD. His blood pressure is at goal. He is on angiotensin receptor tika. His renal functions had been stable. He is on Vitamin D. His 24 hour urine for GFR was 24 mls/mt. He has a great candidate for Jardiance. He should maintain good hydration. He should avoid nonsteroidal anti-inflammatory medications. I did not make any medication changes today. All questions answered. Follow-up given Orders: Orders Creatinine 3 Months I10 - Essential (primary) hypertension, N18.32 - Chronic kidney disease, stage 3b, N25.81 - Secondary hyperparathyroidism of renal origin Electrolytes 3 Months I10 - Essential (primary) hypertension, N18.32 - Chronic kidney disease, stage 3b, N25.81 - Secondary hyperparathyroidism of renal origin Calcium 3 Months I10 - Essential (primary) hypertension, N18.32 - Chronic kidney disease, stage 3b, N25.81 - Secondary hyperparathyroidism of renal origin Vitamin D 25-OH Total 3 Months I10 - Essential (primary) hypertension, N18.32 - Chronic kidney disease, stage 3b, N25.81 - Secondary hyperparathyroidism of renal origin Blood Urea Nitrogen 3 Months I10 - Essential (primary) hypertension, N18.32 - Chronic kidney disease, stage 3b, N25.81 - Secondary hyperparathyroidism of renal origin Parathyroid Hormone Intact 3 Months I10 - Essential (primary) hypertension, N18.32 - Chronic kidney disease, stage 3b, N25.81 - Secondary hyperparathyroidism of renal origin Phosphorus 3 Months I10 - Essential (primary) hypertension, N18.32 - Chronic kidney disease, stage 3b, N25.81 - Secondary hyperparathyroidism of renal origin Coding Level of Care Code Est Pt Level 4 (64893) Diagnoses CKD stage 3b, GFR 30-44 ml/min N18.32 Secondary hyperparathyroidism (of renal origin) N25.81 Primary hypertension I10 Hypertension type: primary hypertension
[2024-08-01 11:57] VITALS: BP 118/60; PULSE 76; O2SAT 96; BMI 28.2
== END 2024-08-01 12:23 | disposition home or self-care (01) ==
PROVIDERS: PCP Family Medicine; Visit Provider Internal Medicine Nephrology
DX: I12.9 Hypertensive chronic kidney disease with stage 1 through stage 4 chronic kidney disease, or unspecified chronic kidney disease (principal); N18.32 Chronic kidney disease, stage 3b; N25.81 Secondary hyperparathyroidism of renal origin
CPT/HCPCS: 99214

== ENCOUNTER → 2024-08-01 11:37 | Outpatient (BNVA) | payer OTHER, SELFPAY | PROVIDERS: PCP Family Medicine; Visit Provider Internal Medicine Nephrology | DX: I12.9 Hypertensive chronic kidney disease with stage 1 through stage 4 chronic kidney disease, or unspecified chronic kidney disease (principal); N18.32 Chronic kidney disease, stage 3b; N25.81 Secondary hyperparathyroidism of renal origin | CPT/HCPCS: 99212 ==

== ENCOUNTER 2024-10-24 08:07 | Outpatient (REF) | payer OTHER, SELFPAY ==
--- OUTSIDE RECORDS SUMMARY | 2024-10-24 08:24 | XMS_ITS | Encounter Summary ---
Author Organization [employer] Address [address] [facility] [address] [place] [address] Care Team Providers Care Purchase Request Editor Name Role Phone Lorena Ordaz MD Primary Care Provider + Yonny Yuan PharmD Unavailable [phone] Encounter Details Date Type Department Care Team (Latest Contact Info) Description 10/19/2024 Travel Social History Tobacco Use Types Packs/Day Years Used Date Smoking Tobacco: Never Smokeless Tobacco: Never Alcohol Use Standard Drinks/Week Comments Not Currently 0 (1 standard drink = 0.6 oz pur e alcohol) Alcohol Answer Date Recorded Frequency of Alcohol Consumption Not on file 11/28/2023 Average Number of Drinks Not on file 024 Frequency of Binge Drinking Not on file 08/2023 Score 0 11/28/2023 Depression Answer Date Recorded Patient Health Questionnaire-9 Score 0 05/17/2024 Patient Health Questionnaire-9 Score 0 05/17/2024 Last PHQ-9: Questionnaire Data Not on file 0 05/17/2024 Housing Stability Answer Date Recorded What is your housing situation today? I have alexandre huerta 11/28/[address] you li ve. Do you have problems with any of the following? None of the above 11/28/2023 Food Insecurity Answer Date Recorded Within the past 12 months, y ou worried that your food would run out before you got money to buy more: Never True 11/28/2023 Within the past 12 months,th e food you bought just didn't last and you didn't have enough money to get more: Never True 08/2023 Transportation Answer Date Recorded In the past 12 months, has l ack of transportation kept you from medical appts, meetings, work or from getting things needed for daily living? No 11/28/2023 Utilities Answer Date Recorded In the past 12 months, has t he electric, gas, oil or water company threatened to shut off services in your home? No 11/28/2023 Depression Answer Date Recorded Patient Health Questionnaire-2 Score 0 05/17/2024 Sex and Gender Information Value Date Recorded Sex Assigned at Male 06/28/2022 10:14 AM EDT Legal Sex Male 10:14 AM EDT Gender Identity Male 06/28/2022 10:14 AM EDT Sexual Orientation Choose not to disclose 2021 10:14 AM EDT documented as of this encounter Plan of Treatment Upcoming Encounters Date Type Department Care Team (Late st Contact Info) Description 11/15/2024 11:45 AM EDT Office Visit [facility] [address] [place] [address] [phone] Lorena Ordaz MD [address] [place] [phone] documented as of this encounter Goals Goal Patient Goal Type Associated Problems Recent Progress Patient-Stated? Author Blood Pressure < 140/90 Blood Pressure 132/64(2024 1:13 PM EST) No Yonny Yuan PharmD Hemoglobin A1c < 7 Result Component 7.5( 1:22 PM EST) No Yonny Yuan PharmD Note: Given age and PMH may be reasonable if goal up to 8% documented as of this encounter Visit Diagnoses Not on filedocumented in this encounter Additional Health Concerns Assessment Noted Time PHQ-9 Depression Total Score: 0 05/17/20 24 11:47 AM EDT documented as of this encounter Care Teams Purchase Request Editor Relationship Specialty Start Date End Date Lorena Ordaz MD [address] [place] [address] [phone] PCP - General Family Medicine 07/19/19 Yonny Yuan PharmD [address] [place] [id number] Pharmacist Internal Medicine 05/30/23 documented as of this encounter
--- OUTSIDE RECORDS SUMMARY | 2024-10-24 08:24 | XMS_ITS | Encounter Summary ---
Author Organization [employer] Address [address] [place] [address] [address] [place] [address] Care Team Providers Care Aitchbone Breaker Name Role Phone Lorena Ordaz MD Primary Care Provider + Yonny Yuan PharmD Unavailable [phone] Reason for Visit * Reason Comments Med Refill Encounter Details Date Type Department Care Team ([facility] st Contact Info) Description 09/30/2024 Refill [facility] MED[facility]INE [address] [place], [place] [phone] Lorena Ordaz MD [address] [place], [place] [phone] Other hyperlipidemia Social History Tobacco Use Types Packs/Day Years [...] Description 11/15/2024 11:45 AM EDT Office Visit [facility] MEDICINE [address] [place] [phone] Lorena Ordaz MD [address] [place] [phone] documented as of this encounter Goals Goal Patient Goal Type Associated Problems Recent Progress Patient-Stated? Author Blood Pressure < 140/90 Blood Pressure 132/64(2024 1:13 PM EST) No Yonny Yuan, Shirley Hemoglobin A1c < 7 Result Component 7.5( 1:22 PM EST) No Yonny Yuan PharmD Note: Given age and PMH may be reasonable if goal up to 8% documented as of this encounter Visit Diagnoses Diagnosis Other hyperlipidemia documented in this encounter Additional Health Concerns Assessment Noted Time PHQ-9 Depression Total Score: 0 05/17/20 24 11:47 AM EDT documented as of this encounter Care Teams Aitchbone Breaker Relationship Specialty Start Date End Date Lorena Ordaz MD [address] [place] [phone] PCP - General Family Medicine 07/19/19 Yonny Yuan, BhavinD [address] [place] [phone] Pharmacist Internal Medicine 05/30/23 documented as of this encounter
--- OUTSIDE RECORDS SUMMARY | 2024-10-24 08:24 | XMS_ITS | Clinical Summary ---
Author Organization [facility] Address [address] [place] [address] Phone Care Team Providers Care Drainage Engineer Name Role Phone Lorena Ordaz MD Primary Care Provider [phone] Allergies Active Allergy Reactions Criticality Noted Date Comments Albuterol Palpitations Low Diphenhydramine Other (see comments) 05/29/2021 Nsaids 05/29/2021 Medications [place]-3 Fatty Acids (Fish Oil Concentrate) 1000 MG capsule Take 1 capsule by mouth 2 (two) times a day Active amLODIPine (NORVASC) 5 MG tablet Take 1 tablet by mouth 1 (one) time each day Active aspirin (ST RAFAEL) 81 MG EC tablet Take 1 tablet by mouth 1 (one) time each day Active atorvastatin (LIPITOR) 80 MG tablet Take 1 tablet by mouth 1 (one) time each day Active glipiZIDE (GLUCOTROL XL) 10 MG 24 hr tablet Take 1 tablet by mouth 2 (two) times a day Active insulin glargine (Lantus) 100 UNIT/ML injection Active montelukast (SINGULAIR) 10 MG tablet Take 1 tablet by mouth 1 (one) time each day Active omeprazole (PriLOSEC) [address] capsule Take 20 mg by mouth 1 (one) time each day 11/04/2021 Active valsartan-hydro CHLOROthiazide (DIOVAN-HCT) 160-12.5 MG per tablet Take 1 tablet by mouth 1 (one) time each day 11/06/2021 Active Januvia 50 MG tablet Take 1 tablet by mouth 1 (one) time each day 04/14/2022 Active Active Problems Problem Noted Date Diagnosed Date Edema of bilateral eyelids 07/26/2022 Change in skin lesion 07/26/2022 Overview (11/10/2022): Last Assessment & Plan: On left buddhism. Will refer again to dermatology. Cough 07/26/2022 Current drinker 07/26/2022 First encounter by subject 07/26/2022 Viral upper respiratory tract infection 07/26/20 Vitamin D deficiency 07/26/2022 Hypertension 11/25/2021 Stage 3b chronic kidney disease 11/25/2021 Benign hypertensive renal disease 05/29/2021 Blood in urine 05/29/2021 Chronic kidney disease stage 3 05/29/2021 Body mass index 30+ - obesity 05/16/2018 Benign neoplasm of bone 04/21/2012 Chronic obstructive pulmonary disease 04/21/2012 Overview (11/10/2022): Last Assessment & Plan: Educated about using albuterol PRN and Brio BID. No other s/s of acute exacerbation at this time. FU in 4-5 weeks. Erectile dysfunction 04/21/2012 Hypertriglyceridemia 04/21/2012 Obstructive sleep apnea syndrome 04/21/2012 Overview (11/10/2022): Last Assessment & Plan: Pt not using CPAP machine. Will discuss about possiblity of using it again, and if pt agrees to it, I will send him for a new sleep study. Osteoarthritis of knee 04/21/2012 Type 2 diabetes mellitus 02/09/2012 Overview (11/10/2022): Last Assessment & Plan: Most likely still uncontrolled. Increase Lantus to 55 units in the morning + 15 in the PM Start Humalog TID AC meals with sliding scale. Continue Januvia and Glipizide. Refer to dietitian. Order labs and FU with m in 4-5 weeks. Immunizations Name Administration Dates Next Due Hepatitis B 11/17/2017,10/19/2017 Influenza Split 06/18/2013,06/21/2012 Influenza Split High Dose Pr eservative Free IM 09/06/2019 Influenza, Quadrivalent, Wit h Preservative 07/08/2017,07/30/2016,07/18/2015 Moderna SARS-COV-2 02/18/2022, 1,01/30/2021,01/02 Pfizer SARS-COV-2 08/02/2022 Pneumococcal Conjugate 06/13/1997 Pneumococcal Conjugate Pcv 20 06/11/2022 Pneumococcal Polysaccharide 11/27/2012 Shingrix 12/01/2021 Td 02/03/2007,12/19/1996,07/09/1996 Tdap 11/17/2017 Zoster 07/08/2017 Social History Tobacco Use Types Packs/Day Years Used Date Smoking Tobacco: Never Smokeless Tobacco: Never Tobacco Cessation:Counseling Given: Not Answered Alcohol Use Standard Drinks/Week Comments No 0 (1 standard drink = 0.6 oz pur e alcohol) Sex and Gender Information Value Date Recorded Sex Assigned at Not on file Legal Sex Male 5:03 PM EST Gender Identity Not on file Sexual Orientation Not on file Last Filed Vital Signs Vital Sign Reading Time Taken Comments Blood Pressure 128/60 05/25/2023 2:16 PM EDT Pulse 86 05/25/2023 2:16 PM EDT Temperature - - Respiratory Rate - - Oxygen Saturation 96% 05/25/2023 2:16 PM EDT Inhaled Oxygen Concentration - - Weight 82.8 kg (182 lb 9.6 oz) 05/25/2023 2:16 P M EDT Height 157.5 cm (5' 2 ) 03/12/2020 12:00 PM EDT Body Mass Index 33.4 03/12/2020 12:00 PM EDT Plan of Treatment Health Maintenance Due Date Last Done Comments Diabetes: Ophthalmology Exam 11/10/2022 Diabetes: Pedal Pulse Checked 11/10/2022 Diabetes: Sensory Foot Exam 11/10/2022 Diabetes: Visual Foot Exam 11/10/2022 Diabetes: Hemoglobin A1C 07/12/202304/11/ 023, 09/14/2022, 07/02/2020 Influenza Vaccine (#1) 2024 0, 07/08/2017, 07/30/2016, Additional history exists Hepatitis B Vaccine Aged Out 11/17/2017, 8 No longer eligible based on patient's age to complete this topic Pneumococcal Vaccine: 65+ Years Completed 06/11/2022, 11/27/2012, 06/13/1997 Procedures Procedure Name Priority Date/Time Associated Diagnosis Comments BLOOD PANEL (HC) Routine 07/02/2020 12:0 0 AM EST from Last 3 Months or Most Recently Relevant to Health Maintenance Results * (ABNORMAL) Blood Panel (07/02/2020 12:00 AM EST) Potassium 4.6 3.5 - 5.1 mmol/L [facility] Carbon Dioxide (CO2) 28 22 - 30 mmol/L [facility] BUN 45(H) 9 - 20 mg/dl [facility] eGFR Non- 26(L) >60 ml/min [facility] Cholesterol 176 <200 mg/dl [facility] Sodium 139 137 - 145 mmol/L [facility] HDL 34(L) >40 mg/dl [facility] Hemoglobin A1C 12.1(H) <5 % [facility] Triglycerides 214(H) <150 mg/dl [facility] Creatinine 2.29(H) 0.70 - 1.30 mg/dl [facility] Calcium 9.6 8.4 - 10.2 mg/dl [facility] eGFR 31(L) >60 ml/min [facility] LDL,Direct 109 <130 mg/dl [facility] 07/02/2020 us [facility] [id number] LICITED RESULTS Final Result [facility] from Last 3 Months or Most Recently Relevant to Health Maintenance Insurance [facility] ([id number]) ([id number]) Care Teams Drainage Engineer Relationship Specialty Start Date End Date Lorena Ordaz MD [address] [place] [phone] PCP - General Internal Medicine 05/05/22
--- OUTSIDE RECORDS SUMMARY | 2024-10-24 08:24 | XMS_ITS | Encounter Summary ---
Author Organization [facility] Address [address] [place] [address] [address] [place] [address] Care Team Providers Care Printed Circuit Boards Beveler Name Role Phone Lorena Ordaz MD Primary Care Provider + Yonny Yuan PharmD Unavailable [phone] Reason for Visit * Reason Comments Med Refill Encounter Details Date Type Department Care Team (Late st Contact Info) Description 10/05/2024 Refill [facility] [address] [place], [place] [phone] Lorena Ordaz MD [address] [place], [place] [phone] Primary hypertension; Non-seasonal allergic rhinitis due to pollen; Allergic conjunctivitis of both eyes Social History Tobacco Use Types Packs/Day Years [...] Description 11/15/2024 11:45 AM EDT Office Visit [facility] [address] [place] [address] Lorena Ordaz MD [address] [place] [address] documented as of this encounter Goals Goal Patient Goal Type Associated Problems Recent Progress Patient-Stated? Author Blood Pressure < 140/90 Blood Pressure 132/64(2024 1:13 PM EST) No Yonny Yuan, PharmHillary Hemoglobin A1c < 7 Result Component 7.5( 1:22 PM EST) No Yonny Yuan PharmD Note: Given age and PMH may be reasonable if goal up to 8% documented as of this encounter Visit Diagnoses Diagnosis Primary hypertension Unspecified essential hypertension Non-seasonal allergic rhinitis due to pollen Allergic conjunctivitis of both eyes Other chronic allergic conjunctivitis documented in this encounter Additional Health Concerns Assessment Noted Time PHQ-9 Depression Total Score: 0 09/19/20 24 11:47 AM EDT documented as of this encounter Care Teams [employer] Boards Beveler Relationship Specialty Start Date End Date Lorena Ordaz MD [address] [place] [address] PCP - General Family Medicine 07/19/19 Yonny Yuan PharmD [address] [place] [address] Pharmacist Internal Medicine 05/30/23 documented as of this encounter
--- OUTSIDE RECORDS SUMMARY | 2024-10-24 08:25 | XMS_ITS | Clinical Summary ---
Author Organization [employer] Address [address] [place] [address] [address] [place] [address] Care Team Providers Care Public Health Nutritionist Name Role Phone Lorena Ordaz MD Primary Care Provider + Yonny Yuan PharmD Unavailable [phone] Allergies Active Allergy Reactions Criticality Noted Date Comments Albuterol Palpitations Low Diphenhydramine 05/29/2021 Other reaction(s): Other (see comments) Nsaids Other reaction(s): proteinuria Statins Other reaction(s): elevated CPK Medications Spacer/Aero-Holdi ng Chambers (AeroChamber Z-Stat Plus) inhaler by Other route. Use as instructed Active albuterol 108 (90 Base) MCG/ACT inhalerIndication s:Pulmonary emphysema, unspecified emphysema type ([facility]) Inhale 2 puffs every 4 (four) hours. To 6 hours 18 g 2 023 Active Alcohol Swabs (Alcohol Prep) 70 % pads USE DIRECTED EVERY DAY 100 each 11 023 Active Blood Pressure Monitor kit Use as directed daily to check blood pressure 1 kit 023 Active Aspirin Adult Low Strength 81 MG EC tabletIndications :Stage 3b chronic kidney disease ([facility]) TAKE 1 TABLET BY MOUTH EVERY EVENING 90 tablet 023 Active TRUEplus Lancets 33G miscIndications:T ype 2 diabetes mellitus with stage 3b chronic kidney disease, with long-term current use of insulin ([facility]) Use to check blood sugar four times daily as directed 300 each 3 02/01/2 024 Active NovoLOG FLEXPEN 100 UNIT/ML pen Use tid AC meals according to sliding scale <150: 0 units/ 151-200: 2u/ 201-250: 4u/251-300:6u/30 1-350: 8u/350-400: 10U/ higher than 400: 12U and call PCP 10 mL Active Fluticasone Furoate-Vilantero l (Breo Ellipta) 200-25 MCG/ACT aerosol powder Inhale 1 puff in the morning. 180 each Active glucose blood (FREESTYLE LITE) test stripIndications: Type 2 diabetes mellitus with stage 3b chronic kidney disease, with long-term current use of insulin ([facility]) Use to test blood sugar up to four times daily as directed. 100 each 2024 Active omega-3 acid ethyl esters (Lovaza) 1 g capsule TAKE 2 CAPSULES BY MOUTH TWICE DAILY IN THE MORNING AND EVENING 360 capsule Active valsartan-hydroCH LOROthiazide (Diovan-HCT) 160-12.5 MG tablet TAKE 1 TABLET BY MOUTH EVERY MORNING 90 tablet Active montelukast (Singulair) 10 MG tablet TAKE 1 TABLET BY MOUTH EVERY EVENING 90 tablet Active empagliflozin (Jardiance) 10 MGIndications:Typ e 2 diabetes mellitus with stage 3b chronic kidney disease, with long-term current use of insulin ([facility]) TAKE 1 TABLET BY MOUTH EVERY MORNING 30 tablet 5 Active insulin glargine (Lantus SoloStar) 100 UNIT/ML penIndications:Ty pe 2 diabetes mellitus with stage 3b chronic kidney disease, with long-term current use of insulin ([facility]) INJECT 55 UNITS SUBCUTANEOUSLY ONCE DAILY 30 mL 2 Active Blood Glucose Monitoring Suppl (FreeStyle [place] Lite) w/Device kit TEST BLOOD SUGAR TWICE DAILY 1 kit Active Pentips 32G X 4 MM miscIndications:T ype 2 diabetes mellitus with stage 3b chronic kidney disease, with long-term current use of insulin (CMS/HCC) USE DIRECTED FIVE TIMES DAILY 200 each 11 11/12/2 024 Active omeprazole (PriLOSEC) [address] capsuleIndication s:Reflux gastritis TAKE 1 CAPSULE BY MOUTH EVERY MORNING 90 capsule 1 024 Active Eye Itch Relief 0.035 % solutionIndicatio ns:Allergic conjunctivitis of both eyes INSTILL 1 DROP IN EACH EYE TWICE DAILY 10 mL 3 024 Active fluticasone (Flonase) 50 MCG/ACT nasal sprayIndications: Non-seasonal allergic rhinitis due to pollen USE 1 SPRAY IN EACH NOSTRIL EVERY MORNING 48 g 025 Active Ozempic, 0.25 or 0.5 MG/DOSE, 2 MG/3ML solution pen-injectorIndic ations:Type 2 diabetes mellitus with stage 3b chronic kidney disease, with long-term current use of insulin ([facility]) INJECT 0.5 MG SUBCUTANEOUSLY EVERY 7 DAYS IN THE ABDOMEN, THIGHS, OR UPPER ARM, ROTATE INJECTION SITES. 3 mL 5 025 Active atorvastatin (Lipitor) 80 MG tabletIndications :Other hyperlipidemia TAKE 1 TABLET BY MOUTH EVERY EVENING 90 tablet 1 025 Active amLODIPine (Norvasc) 5 MG tabletIndications :Primary hypertension TAKE 1 TABLET BY MOUTH EVERY MORNING 90 tablet 1 025 Active cetirizine (ZyrTEC) 5 MG tabletIndications :Non-seasonal allergic rhinitis due to pollen,Allergic conjunctivitis of both eyes TAKE 1 TABLET BY MOUTH EVERY MORNING 90 tablet 1 025 Active atorvastatin (Lipitor) 80 MG tabletIndications :Other hyperlipidemia TAKE 1 TABLET BY MOUTH EVERY EVENING 90 tablet 1 024 2024 Discontinued amLODIPine (Norvasc) 5 MG tabletIndications :Primary hypertension TAKE 1 TABLET BY MOUTH EVERY MORNING 90 tablet 1 024 2024 Discontinued cetirizine (ZyrTEC) 5 MG tabletIndications :Non-seasonal allergic rhinitis due to pollen,Allergic conjunctivitis of both eyes TAKE 1 TABLET BY MOUTH EVERY DAY EVERY MORNING 30 tablet 2 024 2024 Discontinued Active Problems Problem Noted Date Diagnosed Date Tinea pedis of both feet 01/12/2024 Assessment & Plan (01/12/2024 12:17 PM EDT): Counseled regarding tight control of DM Information of podiatry appointment given to DIRECTOR MICROBIOLOGY to reschedule appointment Keep feet clean and dry Use clotrimazole cream on interdigital areas Toenail deformity 11/28/2023 Non-seasonal allergic rhinitis due to pollen Assessment & Plan (02/24/2023 10:40 AM EDT): use zyrtec + flonase reconsult PRN fever, worsening of symptoms Allergic conjunctivitis of both eyes 02/24/2023 Assessment & Plan (01/12/2024 12:18 PM EDT): Use Ketotifen Ophthalmology evaluation up to date Assessment & Plan (02/24/2023 10:40 AM EDT): Use ketotifen eye drops and zyrtec ophthalomology evaluation up to date next one on July 2023 Basal cell carcinoma (BCC) of left latter day region 11/19/2022 Assessment & Plan (11/19/2022 1:28 PM EDT): s/p resection. Has appointment for FU with Dermatology in 8 weeks. Recommended to avoid sun exposure Primary osteoarthritis of both knees 11/19/2022 Assessment & Plan (05/17/2024 5:20 PM EDT): Doing well, advised to walk with cane. Will order fixing of scooter for long distances. Pt has a DIRECTOR MICROBIOLOGY to help with ADLs. Assessment & Plan (11/19/2022 1:27 PM EDT): Take tylenol PRN and ambulation with cane to prevent falls use knee brace on alternating knees as tolerated declined PT at this time. Edema of eyelid of both eyes 07/26/2022 Changing skin lesion 07/26/2022 Overview (05/16/2023): Last Assessment & Plan: On left latter day. Will refer again to dermatology. Assessment & Plan (10/12/2022 1:26 PM EST): On left latter day. Will refer again to dermatology. Cough 07/26/2022 Viral upper respiratory tract infection 07/26/20 Vitamin D deficiency 07/26/2022 Current drinker 07/26/2022 Initial patient encounter 07/26/2022 Benign hypertensive renal disease 05/29/2021 Essential hypertension 05/16/2018 Assessment & Plan (03/14/2024 9:52 AM EDT): Controlled. Compliant w/meds Continue Valsartan/hctz + amlodipine 5 Counseled re low salt diet/increase moderate physical activity. Check home BP BIW and prn CP/SAM/LEE Non smoking patient. Assessment & Plan (11/28/2023 12:04 PM EDT): BP fairly controlled. Continue Valsartan-Hydrochlorothiazide Counseled regarding tighter control of DM and medications Counseled re low salt diet/increase moderate physical activity. Check home BP BIW and prn CP/SAM/LEE Non smoking patient. FU with me in 6 months Follow up with [facility] as scheduled Assessment & Plan (10/12/2022 1:24 PM EST): BP fairly controlled. Counseled regarding tighter control of DM and medications Counseled re low salt diet/increase moderate physical activity. Check home BP BIW and prn CP/SAM/LEE Non smoking patient. FU with me in 6 weeks. Assessment & Plan (09/14/2022 2:06 PM EST): Better controlled. -Continue Diovan HTCZ + amlodipine -Will obtain recent BMP from nephrology and follow up with me in 1 month. -Encouraged to increase physical activity and limit sodium intake. Assessment & Plan (08/02/2022 9:01 PM EST): Borderline controlled, it was normal 1m ago. No med changes, continue Diovan/hctz, amlodipine. He's to bring med list or box at next appt. FU in 6w w me. Counseled re low salt diet/increase moderate physical activity. Check home BP BIW and prn CP/SAM/LEE Non smoking patient. Obesity with body mass index 30 or greater 05/16 Obstructive sleep apnea syndrome 04/21/2012 Assessment & Plan (12/21/2022 12:43 PM EDT): Sleep study sent last appointment, has not recieved appointment yet. Assessment & Plan (11/19/2022 1:28 PM EDT): We had a lengthy discussion with pt about importance of correction MARITA especially with decreasing further morbidity and mortality. He agreed to have a new sleep study. Assessment & Plan (10/12/2022 1:23 PM EST): Pt not using CPAP machine. Will discuss about possiblity of using it again, and if pt agrees to it, I will send him for a new sleep study. Stage 3 chronic kidney disease 04/21/2012 Assessment & Plan (05/17/2024 12:44 PM EDT): GFR remains stable with no electrolyte abnormalities. Advised tight control of DM. Follow up with renal. Jardiance adjusted to GFR. Assessment & Plan (02/24/2023 10:42 AM EDT): Seen by renal on 11/18, GFR remains stable monitor BMP everry 6 months for electrolyte abnromalities continue vit d supplementation and recheck PTH next year couseled regarding tight control of DM and HTN Assessment & Plan (08/02/2022 9:03 PM EST): Seen by renal recently. FU q 6m Counseled re tight control of DM and HTN Counseled re appropriate hydration Get BMP in m Chronic obstructive pulmonary disease 04/21/2012 Overview (05/16/2023): Last Assessment & Plan: Educated about using albuterol PRN and Brio BID. No other s/s of acute exacerbation at this time. FU in 4-5 weeks. Assessment & Plan (11/28/2023 12:03 PM EDT): Educated about using albuterol PRN and restart Brio BID. No other s/s of acute exacerbation at this time. Assessment & Plan (10/12/2022 1:26 PM EST): Educated about using albuterol PRN and Brio BID. No other s/s of acute exacerbation at this time. FU in 4-5 weeks. Assessment & Plan (08/02/2022 8:57 PM EST): No recent COPD exacerbation Continue Albuterol inh prn + Breo + Singulair. Advised to have covid bivalent booster today, up to date on Influenza. Hypertriglyceridemia 04/21/2012 Assessment & Plan (01/12/2024 12:17 PM EDT): We discussed re rx options. Recommended moderate amount of exercise and increase consumption of fruit, vegetables, fish and high fiber foods. Should decrease consumption of highly saturated fats or trans fats. Continue atorvastatin for now, will repeat lipids in 6m to see the effect of ozempic Continue Lovasza 1g BID Erectile dysfunction 04/21/2012 Osteoarthritis of knee 04/21/2012 Benign neoplasm of bone 04/21/2012 Type 2 diabetes mellitus 02/09/2012 Assessment & Plan (05/17/2024 12:43 PM EDT): Controlled. A1c is at goal. Continue on Jardiance + Lantus 50 units + NovoLog + Ozempic 0.5 mg pre week. Counseled re more frequent low calorie/carb meals. Check fgstk 3x / daily Encouraged physical activity as tolerated. FU in 3 months. Agreed to influenza immunization today. Assessment & Plan (03/14/2024 9:56 AM EDT): It seems to be much better controlled. I congratulated him for weight reduction and being more complaint with meds. Encouraged to use Humalog TID Continue Ozempic 0.5mg/w + Jardiance + Lantus 52u (ordered 55 but I'll wait for next A1c) + Novolog as above. Counseled re more frequent low calorie/carb meals. Check fgstk 2x daily Encouraged physical activity as tolerated. FU in 2 months. Assessment & Plan (01/12/2024 12:17 PM EDT): Uncontrolled, A1c is improving Pt to start ozempic and continue lantus 55U, he will DC Januvia + glipizide + novolog Counseled re more frequent low calorie/carb meals. Check fgstk daily Encouraged physical activity as tolerated. FU at [facility] clinic in 1 m and w/ me in 8 wks Assessment & Plan (11/28/2023 12:05 PM EDT): Most likely uncontrolled. Reminded to use 55 units of lantus in the morning and increase to 15 in the pM Encouraged to use Humalog TID AC meals and continue PO medications Counseled re more frequent low calorie/carb meals. Encouraged physical activity as tolerated. F/u with me in 6 weeks and with [facility] as scheduled Assessment & Plan (02/24/2023 10:41 AM EDT): Most likely uncontrolled. Reminded to use 15 unites of lantus in the morning and increase 18 in the pM Encouraged to use Humalog TID AC meals and continue PO medications fu with me in 6 weeks. Counseled re more frequent low calorie/carb meals. Encouraged physical activity as tolerated. Assessment & Plan (12/21/2022 12:42 PM EDT): Uncontrolled but A1C is improving. Increase Lantus to 55 units in the morning and stressed importance of using the PM dose No change in other medications Had a lenghty discussion with pt regarding importance of med compliance. Assessment & Plan (11/19/2022 1:27 PM EDT): Slightly better controlled, not at goal yet. Inrease lantus to 55 units in the morning and 15 in the afternoon, new dose was hand written on a piece of paper. Continue humalog sliding scale, glipizide and Januvia FU in 4 weeks. Counseled re more frequent low calorie/carb meals. Check fgstk daily Encouraged physical activity as tolerated. Assessment & Plan (10/12/2022 1:23 PM EST): Most likely still uncontrolled. Increase Lantus to 55 units in the morning + 15 in the PM Start Humalog TID AC meals with sliding scale. Continue Januvia and Glipizide. Refer to dietitian. Order labs and FU with m in 4-5 weeks. Assessment & Plan (09/14/2022 1:57 PM EST): It is most likely uncontrolled. -Discussed with patient at length about sticking to a low calorie diet and avoiding a high carb diet and hot chocolate and drink hot tea without sugar instead. -Encouraged to increase water consumption. -Use Lantus 50 units with breakfast and 10 units with dinner. No change in other medications. Assessment & Plan (08/02/2022 9:07 PM EST): Most likely uncontrolled, he didn't fu directions from previous appt. D/w him and DIRECTOR MICROBIOLOGY Dmitri re increasing Lantus by 3u q3-4w to a goal of 45u/d overa period of about 2w. Hold off if FBS is consistently <100 (3d on a row,before increasing dose), and fu w me in 6w. Counseled re more frequent low calorie/carb meals. Check fgstk 3x daily Encouraged physical activity as tolerated. I gave him a copy of podiatry referral to missed appt. He will call to optometry appt as well Counseled to have charan Enrique vax booster. Hypertension 02/09/2012 Assessment & Plan (09/14/2022 5:24 PM EST): Controlled. Compliant w/meds Continue amlodipine same dose Counseled re low salt diet/increase moderate physical activity. Check home BP BIW and prn CP/SAM/LEE Non smoking patient. Encounters Date Type Department Care Team Description 10/19/2024 Travel 10/05/2024 Refill [facility] [address] [place] [address] Lorena Ordaz MD Primary hypertension; Non-seasonal allergic rhinitis due to pollen; Allergic conjunctivitis of both eyes 09/30/2024 Refill [facility] [address] [place] [address] Lorena Ordaz MD Other hyperlipidemia 09/14/2024 Telephone [facility] [address] [place] [address] Lorena Ordaz MD 09/11/2024 Refill [facility] [address] [place] [address] Yonny Yuan, BhavinD Type 2 diabetes mellitus with stage 3b chronic kidney disease, with long-term current use of insulin ([facility]) 09/07/2024 3:30 PM EST Office Visit [facility] [address] [place] [address] Uma Meneses MD Scar (Primary Dx); History of basal cell carcinoma of skin 09/07/2024 Travel 08/31/2024 Telephone [facility] [address] [place] [address] Lorena Ordaz MD March recall 08/31/2024 Refill [facility] [address] [place] [address] Lorena Ordaz MD Non-seasonal allergic rhinitis due to pollen 08/21/2024 Refill [facility] [address] [place] [address] Lorena Ordaz MD Allergic conjunctivitis of both eyes 08/07/2024 Refill [facility] [address] [place] [address] Lorena Ordaz MD Reflux gastritis from Last 3 Months Immunizations Name Administration Dates Next Due Hep B, adult 02/16/2024(Deferred: Patient decision),11/17/2017,10/19/2017 Influenza High-dose Quadriva lent Preservative Free 06/08/2023,06/11/2022,05/25/2021,07/02 Influenza injectable quadriv alent IIV4 with preservative 07/08/2017,07/30/2016,07/18/2015 Influenza, High Dose Seasona l, Preservative Free 05/17/2024,09/06/2019 Influenza, IIV3, injectable 06/12/2014 Influenza, Split (incl. giovani fied surface antigen) 06/18/2013,06/21/2012 Moderna Covid-19 Vaccine 12+ 02/16/2024( Deferred: Patient Refused),02/18/2022,08/25/2021, 021,01/02/2021 Pfizer Covid-19 Vaccine 12+ Bivalent 08/02/2022 Pneumococcal Conjugate PCV 20 06/11/2022 Pneumococcal Conjugate PCV 7 06/13/1997 Pneumococcal Polysaccharide PPSV23 11/27/2012 RSV Bivalent 02/16/2024(Deferred: Patient Ref used) TD (adult), 2 Lf tetanus tox oid, preservative free, adsorbed 02/03/2007,12/19/1996,07/09/1996 Tdap 11/17/2017 Zoster, Recombinant 05/30/2023,12/01/2021 Zoster, live 07/08/2017 Family History Medical History Relation Name Comments Glaucoma Neg Hx Macular degeneration Neg Hx Social History Tobacco Use Types Packs/Day Years Used Date Smoking Tobacco: Never Smokeless Tobacco: Never Tobacco Cessation:Counseling Given: Not Answered Alcohol Use Standard Drinks/Week Comments Not Currently [...] not to disclose 2021 10:14 AM EDT Last Filed Vital Signs Vital Sign Reading Time Taken Comments Blood Pressure 132/64 10/19/2024 1:13 PM EST Pulse 56 10/19/2024 1:13 PM EST Temperature 37.1 ??C (98.7 ??F) 09/07/2024 2:56 PM ES T Respiratory Rate 18 09/07/2024 2:56 PM EST Oxygen Saturation 96% 05/17/2024 11:45 AM EDT Inhaled Oxygen Concentration - - Weight 71.4 kg (157 lb 6.4 oz) 10/19/2024 1:35 P M EST Height 157.5 cm (5' 2 ) 09/07/2024 2:56 PM EST Body Mass Index 28.79 09/07/2024 2:56 PM EST Plan of Treatment Upcoming Encounters Date Type Department Care Team (Late st Contact Info) Description 11/15/2024 11:45 AM EDT Office Visit [facility] [address] [place] [address] Lorena Ordaz MD [address] [place] [address] Health Maintenance Due Date Last Done Comments Derm Melanoma Skin Check 02/20/1941 RSV Patients and Patients Aged 60 years or older (1 - 1-dose 75+ series) 2016 Hepatitis B Vaccines (3 of 3 - 19+ 3-dose series) 04/18/2018 11/17/2017, 10/19/2017 COVID-19 Vaccine ( season) 2024 08/02/2022, 02/18/2022, 08/25/2021, Additional history exists Alcohol/Substance Use Screening 11/27/2024 11/28/2023 SDOH Screening 11/27/2024 11/28/2023 Lipid Panel 12/29/2024 12/30/2023, 09/29, 02/18/2022, Additional history exists Diabetes: Foot Exam 01/11/2025 01/12/2024, 01/12/2024, 01/12/2024, Additional history exists Diabetes: Hemoglobin A1C 01/16/2025 025, 05/17/2024, 12/30/2023, Additional history exists Depression Screening 05/17/2025 05/17/2024, 05/17/20 24 Tobacco Screening 05/17/2025 05/17/2024 Eye Exam 01/10/2026 01/11/2024, 12/27, 01/11/2024, Additional history exists DTaP/Tdap/Td Vaccines (2 - Td or Tdap) 11/18/2027 11/17/2017, 02/03/2007, 12/19/1996, Additional history exists Pneumococcal Vaccine: 50+ Years Completed 06/11/2022, 11/27/2012, 06/13/1997 Zoster Vaccines Completed 05/30/2023, 040 12/2021, 07/08/2017 Influenza Vaccine Completed 05/17/2024, , 06/11/2022, Additional history exists HIB Vaccines Aged Out No longer eligi ble based on patient's age to complete this topic HPV Vaccines Aged Out No longer eligi ble based on patient's age to complete this topic Hepatitis A Vaccines Aged Out No long er eligible based on patient's age to complete this topic IPV Vaccines Aged Out No longer eligi ble based on patient's age to complete this topic Meningococcal Vaccine Aged Out No devorah abbey eligible based on patient's age to complete this topic RSV under 20 months Aged Out No longe r eligible based on patient's age to complete this topic Rotavirus Vaccines Aged Out No longer eligible based on patient's age to complete this topic Goals Goal Patient Goal Type Associated Problems Recent Progress Patient-Stated? Author Blood Pressure < 140/90 Blood Pressure 132/64(2024 1:13 PM EST) No Yonny Yuan, Shirley Hemoglobin A1c < 7 Result Component 7.5( 1:22 PM EST) No Yonny Yuan PharmD Note: Given age and PMH may be reasonable if goal up to 8% Procedures Procedure Name Priority Date/Time Associated Diagnosis Comments POCT GLYCATED HEMOGLOBIN, TOTAL Routine 10/19/2024 1:22 PM EST Type 2 diabetes mellitus with stage 3b chronic kidney disease, with long-term current use of insulin ([facility]) LIPID PANEL, STANDARD Routine 12/30/2023 10:11 AM EDT from Last 3 Months or Most Recently Relevant to Health Maintenance Results * (ABNORMAL) POCT HGB A1C (10/19/2024 1:22 PM EST) Hemoglobin A1C 7.5(A) 4.0 - 6.0 % QC Media Lot # [id number] Lot# Expiration Date Blood 10/19/2024 1:22 PM EST Lorena Ordaz MD POINT OF CARE TEST ENTER /EDIT ORDERABLES Final Result * (ABNORMAL) Lipid Panel, Standard (12/30/2023 10:11 AM EDT) Triglycerides 161(H) <150 mg/dL [facility] Comment:Desirable Triglyceri de: less than 150 mg/dLBorderline High Triglyceride 150-199 mg/dLHigh Triglyceride: 200-499 mg/dLVery High Triglyceride: greater than or equal to 5OO mg/dL Cholesterol 202(H) <200 mg/dL [facility] Comment:Desirable Cholestero l: less than 200 mg/dLBorderline High Cholesterol: 200-239 mg/dLHigh Cholesterol: greater than 239 mg/dL LDL Cholesterol Calculated 136(H) <100 mg/dL [facility] Comment:Desirable LDL: less than 100 mg/dLNear Optimal/Above Optimal LDL: 110- 129 mg/dLBorderline High LDL: 130-159 mg/dLHigh LDL: 160-189 mg/dLVery High LDL: greater than or equal to 190 mg/dL HDL Cholesterol 34(L) >40 mg/dL [facility] Comment:Desirable HDL: great er than 40 mg/dL Note: This HDL assay may give artificially low results in patients with liver disease. 12/30/2023 10:1 1 AM EDT 12/30/2023 11:35 AM EDT us Lorena Ordaz MD LAB BLOOD ORDERABLES Fin al Result [facility] [address] [place] [address] [phone] from Last 3 Months or Most Recently Relevant to Health Maintenance Insurance [facility] Care Teams Public Health Nutritionist Relationship Specialty Start Date End Date Lorena Ordaz MD [address] [place] [phone] PCP - General Family Medicine 07/19/19 Yonny Yuan, PharmD [address] [place] [phone] Pharmacist Internal Medicine 05/30/23
--- OUTSIDE RECORDS SUMMARY | 2024-10-24 08:25 | XMS_ITS | Encounter Summary ---
Author Organization [facility] Address [address] [place] [address] [address] [place] [address] Care Team Providers Care Application Integrator Name Role Phone Lorena Ordaz MD Primary Care Provider + Yonny Yuan PharmD Unavailable [phone] Encounter Details Date Type Department Care Team ([facility] st Contact Info) Description 01/03/2023 Orders Only [facility] [address] [place] [address] Cristina Gillespie LPN Social History Tobacco Use Types Packs/Day Years Used Date Smoking Tobacco: Never Smokeless Tobacco: Never Alcohol Use Standard Drinks/Week Comments Not Currently 0 (1 standard drink = 0.6 oz pur e alcohol) Depression Answer Date Recorded Patient Health Questionnaire-9 Score 0 11/19/2022 Depression Answer Date Recorded Patient Health Questionnaire-2 Score 0 11/19/2022 Sex and Gender Information Value Date Recorded Sex Assigned at Male 06/28/2022 10:14 AM EDT Legal Sex Male 10:14 AM EDT Gender Identity Male 06/28/2022 10:14 AM EDT Sexual Orientation Choose not to disclose 2021 10:14 AM EDT COVID-19 Exposure Response Date Recorded In the last 10 days, have yo u been in contact with someone who was confirmed or suspected to have Coronavirus/COVID-19? No / Unsure 12/21/2022 10:58 AM EDT documented as of this encounter Plan of Treatment Upcoming Encounters Date Type Department Care Team (Late st Contact Info) Description 11/15/2024 11:45 AM EDT Office Visit [facility] [address] [place] [address] Lorena Ordaz MD [address] [place] [address] documented as of this encounter Visit Diagnoses Not on filedocumented in this encounter Additional Health Concerns Assessment Noted Time PHQ-9 Depression Total Score: 0 11/20/19 23 12:54 PM EDT documented as of this encounter Care Teams Application Integrator Relationship Specialty Start Date End Date Lorena Ordaz MD [address] [place] [address] PCP - General Family Medicine 07/19/19 Yonny Yuan, BhavinD [address] [place] [address] Pharmacist Internal Medicine 05/30/23 documented as of this encounter
--- OUTSIDE RECORDS SUMMARY | 2024-10-24 08:25 | XMS_ITS | Clinical Summary ---
Author Organization [facility] Address [address] [place] [address] Care Team Providers Care Power Saw Operator Name Role Phone Unknown Primary Care Provider [phone] Social History Tobacco Use Types Packs/Day Years Used Date Smoking Tobacco: Never Assessed Sex and Gender Information Value Date Recorded Sex Assigned at Not on file Gender Identity Not on file Sexual Orientation Not on file Plan of Treatment Health Maintenance Due Date Last Done Comments DTaP/Tdap/Td Vaccines (1 - Tdap) 1960 Pneumococcal Vaccines 50+ (1 of 1 - PCV) 1991 Zoster (Shingles) Vaccine (1 of 2) 1991 RSV Vaccine 60 years and old er and Patients (1 - 1-dose 75+ series) 2016 COVID-19 Vaccine ( - 2023-2 5 season) 2024 Hepatitis B Vaccines Aged Out No long er eligible based on patient's age to complete this topic Care Teams Power Saw Operator Relationship Specialty Start Date End Date Unknown Unknow Provider Address PCP - General 07/01/21
[2024-10-24 09:24] LABS: Anion Gap 11 (12-20); Blood Urea Nitrogen 41 mg/dL (9-16); Calcium 9.5 mg/dL (8.4-10.2); Carbon Dioxide 24 mmol/L (22-29); Chloride 110 mmol/L (96-108); Estimated Glomerular Filt Rate 39; Phosphorus 3.4 mg/dL (2.7-4.5); Potassium 4.1 mmol/L (3.3-5.1); Sodium 141 mmol/L (135-145)
== END 2024-10-24 08:08 | disposition home or self-care (01) ==
LOC: HO.LAB 08:07
PROVIDERS: PCP Internal Medicine; Visit Provider Internal Medicine Nephrology
DX: N18.32 Chronic kidney disease, stage 3b (principal); N25.81 Secondary hyperparathyroidism of renal origin; I10 Essential (primary) hypertension
CPT/HCPCS: 36415; 80051; 82306; 82310; 82565; 83970; 84100; 84520

== ENCOUNTER 2024-10-31 11:17 | Outpatient (AMB) | payer OTHER, SELFPAY ==
--- NOTE | 2024-10-31 11:56 | HO.NEPHOV_ITS ---
Vital Signs 10/31/24 11:58 Height 5 ft 2 in Weight 157 lb 8 oz BMI 28.8 BP 114/60 Blood Pressure Location Lt brachial Position Sitting Pulse 76 Pulse Source Pulse Oximeter Pulse Oximetry (%) 95 Oxygen Delivery Method Room Air Intake Visit Reasons: CKD-LVM Practice Administrator Services: Practice Administrator Offered & Declined ([facility] compensator worker services refused- Pt accompanied by FRAME TABLE OPERATOR) Practice Administrator Name: Aurelia-FRAME TABLE OPERATOR Accompanied by: Other Relationship Allergies No Known Allergies Allergy (Verified 10/31/24 11:57) HPI Comments Details: Celestino was seen in follow-up of his chronic kidney disease and hypertension. He feels well. He has not had any nephrolithiasis, hematuria, flank pain, pedal edema, urinary symptoms, chest pain, orthostatic symptoms, paroxysmal nocturnal dyspnea, orthopnea. His blood sugar control has been fair. He is claimed to be compliant with his medication. He avoids any nonsteroidal anti-inflammatory medication intake. He had no new systemic complaints. All other systems have been reviewed and were negative [facility] Medical History (Updated 02/01/24 @ 10:48 by Deon Brown MD) Diabetes Hypertension Chronic kidney failure Family History Brother Diabetes Social History Household Members: Spouse Housing: House Do you presently have visiting nurse or other home services: Yes Alcohol intake: former Patient Tobacco Use Status: Never used Tobacco Second Hand Smoke Exposure: No service: No Current occupational status: unemployed Review of Systems Const All systems reviewed & are unremarkable except as noted in HPI and below Physical Exam Vital Signs: Last Vital Signs Pulse 76 10/31/24 11:58 BP 114/60 10/31/24 11:58 Pulse Ox 95 10/31/24 11:58 Oxygen Delivery Method Room Air 10/31/24 11:58 BMI result Body Mass Index 28.8 Const General: comfortable and no acute distress Orientation/consciousness: patient oriented x3 HEENT Head: Yes normocephalic Mouth: Normal oral and palatal mucosa present Eyes EOM: EOMs intact bilaterally Neck Neck: Yes supple Resp Auscultation: clear to auscultation bilaterally Cardio Jugular venous distension: no JVD Rate: regular rate GI Palpation (GI): Soft to palpation Auscultation: normal bowel sounds General: Yes no CVA tenderness Back/Spine/Pelvis Back: no CVA tenderness Skin General skin exam: no rashes or lesions noted Neuro General: patient oriented x3 and moves all extremities Extrem General: Yes no pedal edema Results Reviewed Nephrology Results: Hgb 14.0 g/dl (14.0-18.0) 09/30/23 WBC 9.3 X10*3/uL (4.8-10.8) 09/30/23 Plt Count 255 X10*3/uL (160-400) 09/30/23 Sodium 141 mmol/L (135-145) 10/24/24 Potassium 4.1 mmol/L (3.3-5.1) 10/24/24 Chloride 110 mmol/L (96-108) H 10/24/24 Carbon Dioxide 24 mmol/L (22-29) 10/24/24 BUN 41 mg/dL (9-16) H 10/24/24 Creatinine 1.68 mg/dL (0.5-1.4) H 10/24/24 Calcium 9.5 mg/dL (8.4-10.2) 10/24/24 Phosphorus 3.4 mg/dL (2.7-4.5) 10/24/24 PTH Intact 140.0 pg/mL (8.7-77.1) H 10/24/24 Urine Creatinine 79.37 mg/dL 12/30/23 Assessment & Plan Assessment & Plan (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 His blood pressure is at goal. He is on angiotensin receptor tika. His renal functions had been stable. He is on Vitamin D. He has a great candidate for [employer]. He should maintain good hydration. He should avoid nonsteroidal anti-inflammatory medications. I did not make any medication changes today. All questions answered. Follow-up given Orders: Orders Blood Urea Nitrogen 3 Months I10 - Essential (primary) hypertension, I12.9 - Hypertensive chronic kidney disease with stage 1 through stage 4 chronic kidney disease, or unspecified chronic kidney disease, N18.4 - Chronic kidney disease, stage 4 (severe), N25.81 - Secondary hyperparathyroidism of renal origin Electrolytes 3 Months I10 - Essential (primary) hypertension, I12.9 - Hypertensive chronic kidney disease with stage 1 through stage 4 chronic kidney disease, or unspecified chronic kidney disease, N18.4 - Chronic kidney disease, stage 4 (severe), N25.81 - Secondary hyperparathyroidism of renal origin Creatinine 3 Months I10 - Essential (primary) hypertension, I12.9 - Hypertensive chronic kidney disease with stage 1 through stage 4 chronic kidney disease, or unspecified chronic kidney disease, N18.4 - Chronic kidney disease, stage 4 (severe), N25.81 - Secondary hyperparathyroidism of renal origin Coding Level of Care Code Est Pt Level 4 (04201) Diagnoses CKD stage 4 secondary to hypertension I12.9; N18.4 Primary hypertension I10 Hypertension type: primary hypertension Secondary hyperparathyroidism (of renal origin) N25.81
[2024-10-31 11:58] VITALS: BP 114/60; PULSE 76; O2SAT 95; BMI 28.8
--- OUTSIDE RECORDS SUMMARY | 2024-10-31 13:37 | XMS_ITS | Clinical Summary ---
Author Organization [facility] Address [address] [place] [address] Phone Care Team Providers Care Adjunct Lecturer Name Role Phone Lorena Ordaz MD Primary Care Provider [phone] Allergies Active Allergy Reactions Criticality Noted Date Comments Albuterol Palpitations Low Diphenhydramine Other (see comments) 05/29/2021 Nsaids 05/29/2021 Medications Edinburgh-3 Fatty Acids (Fish Oil Concentrate) 1000 MG [...] (11/10/2022): Last Assessment & Plan: On left christianity. Will refer again to dermatology. Cough 07/26/2022 [...] mg/dl PVNMA 07/02/2020 us [facility]version [facility] [id number] LICITED RESULTS Final Result PVNMA from Last 3 Months or Most Recently Relevant to Health Maintenance Insurance [facility] ([id number]) ([id number]) Care Teams Adjunct Lecturer Relationship Specialty Start Date End Date Lorena Ordaz MD [address] [place] [id number] PCP - General Internal Medicine 05/05/22
--- OUTSIDE RECORDS SUMMARY | 2024-10-31 13:37 | XMS_ITS | Clinical Summary ---
Author Organization [facility] Address [address] [place] [address] Care Team Providers Care Natural Resources Specialist Name Role Phone Unknown Primary Care Provider [phone] Social History Tobacco Use Types Packs/Day Years [...] age to complete this topic Care Teams Natural Resources Specialist Relationship Specialty Start Date End Date Unknown Unknow Provider Address PCP - General 07/01/21
== END 2024-10-31 12:19 | disposition home or self-care (01) ==
PROVIDERS: PCP Family Medicine; Visit Provider Internal Medicine Nephrology
DX: I12.9 Hypertensive chronic kidney disease with stage 1 through stage 4 chronic kidney disease, or unspecified chronic kidney disease (principal); N18.4 Chronic kidney disease, stage 4 (severe); I10 Essential (primary) hypertension; N25.81 Secondary hyperparathyroidism of renal origin
CPT/HCPCS: 99214

== ENCOUNTER → 2024-10-31 11:17 | Outpatient (BNVA) | payer OTHER, SELFPAY | PROVIDERS: PCP Family Medicine; Visit Provider Internal Medicine Nephrology | DX: I12.9 Hypertensive chronic kidney disease with stage 1 through stage 4 chronic kidney disease, or unspecified chronic kidney disease (principal); N18.4 Chronic kidney disease, stage 4 (severe); N25.81 Secondary hyperparathyroidism of renal origin | CPT/HCPCS: 99212 ==

== ENCOUNTER 2025-01-31 07:35 | Outpatient (REF) | payer OTHER, SELFPAY ==
--- OUTSIDE RECORDS SUMMARY | 2025-01-31 07:38 | XMS_ITS ---
Author Organization [facility] Address [address] [place] [address] Care Team Providers Care Client Service Associate Name Role Phone Lorena Ordaz Primary Care Provider Unav ailable Malik Deleon Unavailable [phone] Ana Prakash [phone] Encounters Encounter Location Date Provider Diagnosis [address] [address] 01/28/2025 Ana Prakash Plan Of Treatment Next Appt Details Provider Name:Malik Deleon , 02/19/2025 09:30:00 AM, [address] [place] [address], [phone], Progress Notes * Celestino [birth year]EDOB: [birth year] (84 yo M)Acc No.[id number]:01/28/2025 Progress Notes Patient:?Celestino POPE Provider:?Ana Prakash DPM :1940???Age:84 Y???Sex:Male Garrick e:01/28/2025 Address:[address] [place], [place] [id number] Pcp:Lorena Ordaz Subjective: * Chief Complaints: * ??? * Medical History:? Objective: * Vitals:? Assessment: Plan: * Treatment: * Images: * The named appointment provid er may or may not be the originator of this progress note, and it is not deemed complete until electronically signed by the appointment provider. Sign off status: Pending * Provider:?Ana Prakash DPM Date:?0 01/28/2025 Generated for Elayne chatman/Laci/Amira on:?01/31/2025 07:37 AM EDT
[2025-01-31 08:31] LABS: Creatinine Urine 72.42 mg/dL; Microalbum/Creatinine Ratio Ur 255.4 ug/mg cr (<30)
[2025-01-31 08:36] LABS: Cholesterol 180 mg/dL (<200); HDL Cholesterol 33 mg/dL (>40); LDL Cholesterol Calculated 118 mg/dL (<100); Triglycerides 145 mg/dL (<150)
[2025-01-31 08:37] LABS: Alanine Aminotransferase 22 U/L (0-40); Albumin Level 4.3 g/dL (3.5-5.0); Alkaline Phosphatase 43 U/L (39-117); Anion Gap 10 (12-20); Aspartate Amino Transferase 29 U/L (5-37); Bilirubin Total 0.8 mg/dL (0.0-1.0); Blood Urea Nitrogen 40 mg/dL (9-16); Calcium 9.9 mg/dL (8.4-10.2); Carbon Dioxide 28 mmol/L (22-29); Chloride 110 mmol/L (96-108); Estimated Glomerular Filt Rate 33; Glucose Random 131 mg/dL (60-115); Potassium 4.5 mmol/L (3.3-5.1); Sodium 143 mmol/L (135-145); Total Protein 7.4 g/dL (6.5-8.0)
[2025-01-31 08:51] LABS: Vitamin D 25-OH Total 30.2 ng/mL (>30)
[2025-01-31 09:54] LABS: Reflex LDLD? No
== END 2025-01-31 07:36 | disposition home or self-care (01) ==
LOC: HO.LAB 07:35
PROVIDERS: Internal Medicine Nephrology; PCP Internal Medicine; Visit Provider Internal Medicine
DX: Z79.4 Long term (current) use of insulin (principal); N18.32 Chronic kidney disease, stage 3b; E11.22 Type 2 diabetes mellitus with diabetic chronic kidney disease
CPT/HCPCS: 36415; 80053; 80061; 82043; 82306; 82570

== ENCOUNTER 2025-02-15 10:57 | Outpatient (AMB) | payer OTHER, SELFPAY ==
--- OUTSIDE RECORDS SUMMARY | 2025-01-28 05:30 | XMS_ITS ---
Author Organization [facility] Address [address] [place] [address] Care Team Providers Care Pharmaceutical Compounding Supervisor Name Role Phone Lorena Ordaz Primary Care Provider Unav ailable Malik Deleon Unavailable [phone] Ana Prakash [phone] Encounters Encounter Location Date Provider Diagnosis [address] [address] 01/28/2025 Ana Prakash Plan Of Treatment Next Appt Details Provider Name:Malik Deleon , 02/19/2025 09:30:00 AM, [address] [place], [address], Progress Notes * Celestino [birth year]EDOB: [birth year] (84 yo M)Acc No.[id number]:01/28/2025 Progress Notes Patient: Fly Celestino NUR Provider: Milo Prakash DPM :1940 A ge:84 Y S ex:Male Date:01/28/2025 Address:[address] [place], [place] [id number] Pcp:Lorena Ordaz Subjective: * Chief Complaints: * [...] 01/28/2025 Generated for Elayne chatman/Laci/Amira on: 0 02/15/2025 11:22 AM EDT
--- NOTE | 2025-02-15 11:40 | HO.NEPHOV ---
Vital Signs 02/15/25 11:41 Height 5 ft 2 in Weight 145 lb 8 oz BMI 26.6 BP 120/60 Blood Pressure Location Lt brachial Position Sitting Pulse 74 Pulse Source Pulse Oximeter Pulse Oximetry (%) 94 Oxygen Delivery Method Room Air Intake Visit Reasons: 3 mo fu w/ labs-LVM Co Founder And President Required: Yes Co Founder And President Language: Nutrition Instructor Services: Co Founder And President Offered & Declined ([facility] Co Founder And President services refused ) Accompanied by: Self / Same As Patient Allergies No Known Allergies Allergy (Verified 02/15/25 11:41) HPI Comments Details: Celestino was seen in follow-up of his chronic kidney disease and hypertension. He feels well. He has not had any nephrolithiasis, hematuria, flank pain, pedal edema, urinary symptoms, chest pain, orthostatic symptoms, paroxysmal nocturnal dyspnea, orthopnea. His blood sugar control has been fair. He is claimed to be compliant with his medication. He avoids any nonsteroidal anti-inflammatory medication intake. He had no new systemic complaints. All other systems have been reviewed and were negative [facility] Medical History (Updated 02/01/24 @ 10:48 by Deon Brown MD) Diabetes Hypertension Chronic kidney failure Family History Brother Diabetes Social History Household Members: Spouse Housing: House Do you presently have visiting nurse or other home services: Yes Alcohol intake: former Patient Tobacco Use Status: Never used Tobacco Second Hand Smoke Exposure: No service: No Current occupational status: unemployed Review of Systems Const All systems reviewed & are unremarkable except as noted in HPI and below Physical Exam Vital Signs: Last Vital Signs Pulse 74 02/15/25 11:41 BP 120/60 02/15/25 11:41 Pulse Ox 94 02/15/25 11:41 Oxygen Delivery Method Room Air 02/15/25 11:41 BMI result Body Mass Index 26.6 Const General: comfortable and no acute distress Orientation/consciousness: patient oriented x3 HEENT Head: Yes normocephalic Mouth: Normal oral and palatal mucosa present Eyes EOM: EOMs intact bilaterally Neck Neck: Yes supple Resp Auscultation: clear to auscultation bilaterally Cardio Jugular venous distension: no JVD Rate: regular rate GI Palpation (GI): Soft to palpation Auscultation: normal bowel sounds General: Yes no CVA tenderness Back/Spine/Pelvis Back: no CVA tenderness Skin General skin exam: no rashes or lesions noted Neuro General: patient oriented x3 and moves all extremities Extrem General: Yes no pedal edema Results Reviewed Nephrology Results: Sodium, (135-145) 143 mmol/L 01/31/25 Potassium, (3.3-5.1) 4.5 mmol/L 01/31/25 Chloride, (96-108) 110 mmol/L H 01/31/25 Carbon Dioxide, (22-29) 28 mmol/L 01/31/25 BUN, (9-16) 40 mg/dL H 01/31/25 Creatinine, (0.5-1.4) 1.93 mg/dL H 01/31/25 Calcium, (8.4-10.2) 9.9 mg/dL 01/31/25 Phosphorus, (2.7-4.5) 3.4 mg/dL 10/24/24 PTH Intact, (8.7-77.1) 140.0 pg/mL H 10/24/24 Urine Creatinine 72.42 mg/dL 01/31/25 Assessment & Plan Assessment & Plan (1) Hypertension: Code(s): I10 - Essential (primary) hypertension Category: Medical Qualifiers: Hypertension type: primary hypertension Qualified Code(s): I10 - Essential (primary) hypertension (2) CKD stage 4 secondary to hypertension: Code(s): I12.9 - Hypertensive chronic kidney disease with stage 1 through stage 4 chronic kidney disease, or unspecified chronic kidney disease; N18.4 - Chronic kidney disease, stage 4 (severe) Category: Medical (3) Secondary hyperparathyroidism (of renal origin): Code(s): N25.81 - Secondary hyperparathyroidism of renal origin Category: Medical Plan Celestino has baseline stage III B CKD. His blood pressure is at goal. He is on angiotensin receptor tika. His renal functions had been stable. He is on Vitamin D. He is a great candidate for [employer]. He should maintain good hydration. He should avoid nonsteroidal anti-inflammatory medications. I did not make any medication changes today. All questions answered. Follow-up given Orders: Orders Creatinine 3 Months I10 - Essential (primary) hypertension, I12.9 - Hypertensive chronic kidney disease with stage 1 through stage 4 chronic kidney disease, or unspecified chronic kidney disease, N18.4 - Chronic kidney disease, stage 4 (severe), N25.81 - Secondary hyperparathyroidism of renal origin Blood Urea Nitrogen 3 Months I10 - Essential (primary) hypertension, I12.9 - Hypertensive chronic kidney disease with stage 1 through stage 4 chronic kidney disease, or unspecified chronic kidney disease, N18.4 - Chronic kidney disease, stage 4 (severe), N25.81 - Secondary hyperparathyroidism of renal origin Electrolytes 3 Months I10 - Essential (primary) hypertension, I12.9 - Hypertensive chronic kidney disease with stage 1 through stage 4 chronic kidney disease, or unspecified chronic kidney disease, N18.4 - Chronic kidney disease, stage 4 (severe), N25.81 - Secondary hyperparathyroidism of renal origin Coding Level of Care Code Est Pt Level 4 (14306) Diagnoses Primary hypertension I10 Hypertension type: primary hypertension CKD stage 4 secondary to hypertension I12.9; N18.4 Secondary hyperparathyroidism (of renal origin) N25.81
[2025-02-15 11:41] VITALS: BP 120/60; PULSE 74; O2SAT 94; BMI 26.6
== END 2025-02-15 11:58 | disposition home or self-care (01) ==
LOC: HO.HKA 10:57
PROVIDERS: PCP Family Medicine; Visit Provider Internal Medicine Nephrology
DX: I10 Essential (primary) hypertension (principal); I12.9 Hypertensive chronic kidney disease with stage 1 through stage 4 chronic kidney disease, or unspecified chronic kidney disease; N18.4 Chronic kidney disease, stage 4 (severe); N25.81 Secondary hyperparathyroidism of renal origin
CPT/HCPCS: 99214

== ENCOUNTER → 2025-02-15 10:57 | Outpatient (BNVA) | payer OTHER, SELFPAY | PROVIDERS: PCP Family Medicine; Visit Provider Internal Medicine Nephrology | DX: I10 Essential (primary) hypertension (principal); I12.9 Hypertensive chronic kidney disease with stage 1 through stage 4 chronic kidney disease, or unspecified chronic kidney disease; N18.4 Chronic kidney disease, stage 4 (severe); N25.81 Secondary hyperparathyroidism of renal origin | CPT/HCPCS: 99212 ==

== ENCOUNTER 2025-02-22 07:49 | Outpatient (REF) | payer OTHER, SELFPAY ==
--- OUTSIDE RECORDS SUMMARY | 2025-02-22 07:52 | XMS_ITS | Patient Health Record ---
Author Organization [facility] Address [address] [place] [address] Care Team Providers Care Boilermaker Ship Name Role Phone Chivo Meraz Jr [phone] Reason For Referral No Information Plan Of Treatment No Information
[2025-02-22 08:31] LABS: Anion Gap 14 (12-20); Blood Urea Nitrogen 39 mg/dL (9-16); Carbon Dioxide 24 mmol/L (22-29); Chloride 106 mmol/L (96-108); Estimated Glomerular Filt Rate 37; Potassium 4.6 mmol/L (3.3-5.1); Sodium 139 mmol/L (135-145)
== END 2025-02-22 07:50 | disposition home or self-care (01) ==
LOC: HO.LAB 07:49
PROVIDERS: Visit Provider Internal Medicine Nephrology
DX: I12.9 Hypertensive chronic kidney disease with stage 1 through stage 4 chronic kidney disease, or unspecified chronic kidney disease (principal); N25.81 Secondary hyperparathyroidism of renal origin; N18.4 Chronic kidney disease, stage 4 (severe)
CPT/HCPCS: 36415; 80051; 82565; 84520

== ENCOUNTER 2025-05-24 10:48 | Outpatient (AMB) | payer OTHER, SELFPAY ==
--- OUTSIDE RECORDS SUMMARY | 2025-01-28 05:30 | XMS_ITS ---
Author Organization [facility] Address [address] [place] [address] Care Team Providers Care Personnel Security Specialist Name Role Phone Lorena Ordaz Primary Care Provider Unav ailable Malik Deleon Unavailable [phone] Ana Prakash [phone] Encounters Encounter Location Date Provider Diagnosis [address] [address] 01/28/2025 Ana Prakash Plan Of Treatment Next Appt Details Provider Name:Malik Deleon , 06/18/2025 02:00:00 PM, [address] [place] [address], [phone], Progress Notes * Celestino POPEDOB: [birth year] (84 yo M)Acc No.[id number]:01/28/2025 Progress Notes Patient: Fly Celestino NUR Provider: Milo Prakash DPM :1940 A ge:84 Y S ex:Male Date:01/28/2025 Address:[address] [place], [place] [id number] Pcp:Lorena Ordaz Subjective: * Chief Complaints: * * Medical History: Objective: * Vitals: Assessment: Plan: * Treatment: * Images: * The named appointment provid er may or may not be the originator of this progress note, and it is not deemed complete until electronically signed by the appointment provider. Sign off status: Pending * Provider: Milo Prakash DPM Date: 0 01/28/2025 Generated for Elayne chatman/Laci/Amira on: 0 05/24/2025 12:30 PM EDT
--- OUTSIDE RECORDS SUMMARY | 2025-02-19 05:30 | XMS_ITS ---
Author Organization [facility] Tanvi thomas Hartwick Address [address] [facility] [place] [address] Care Team Providers Care Specimen Technician Name Role Phone Lorena Ordaz Primary Care Provider Unav ailable Malik Deleon Unavailable [phone] Medications Medication SIG (Take, Route, Frequency, Duration) Notes Start Date End Date Status Pentips Generic Pen [place] 32G X 4 MM ; Duration: 40 Days Ac tive Jywxu-0-ejks Ethyl Esters 1 GM TAKE 2 CAPSULES BY MOUTH TWICE DAILY IN THE MORNING AND EVENING Oral; Duration: 90 Days Active TRUEplus Lancets 33G - TEST BLOOD SUGAR FOUR TIMES DAILY DIRECTED; Duration: 75 Days Active Omeprazole 20 MG TAKE 1 CAPSULE BY MO UTH EVERY MORNING Oral; Duration: 90 Days Active Clotrimazole 1 % APPLY TOPICALLY TO T HE AFFECTED AREA(S) TWICE DAILY FOR 28 DAYS External; Duration: 28 Days Active NovoLOG FlexPen 100 UNIT/ML Subcutaneous; Duration: 36 Days Active Lantus SoloStar 100 UNIT/ML INJECT 55 UNITS SUBCUTANEOUSLY EVERY DAY Subcutaneous; Duration: 53 Days Active Cetirizine HCl 5 MG TAKE 1 TABLET BY PADMA TH EVERY MORNING Oral; Duration: 30 Days Active Montelukast Sodium 10 MG TAKE 1 TABLET B Y MOUTH EVERY EVENING Oral; Duration: 90 Days Active Fluticasone Propionate 50 MCG/ACT INSTILL 1 SPRAY IN EACH NOSTRIL ONCE DAILY IN THE MORNING Nasal; Duration: 60 Days Active FreeStyle Lite Test - In Vitro; Duration: 25 Days Active Atorvastatin Calcium 80 MG TAKE 1 TABLET BY MOUTH EVERY EVENING Oral; Duration: 90 Days Active BD Pen Needle Bernice U/F 32G X 4 MM ; Duration: 40 Days Active Fluticasone Propionate 50 MCG/ACT Nasal; Duration: 60 Days Act jaren amLODIPine Besylate 5 MG Oral; Duration: 30 Days Active Axrdu-1-zmoz Ethyl Esters 1 GM Oral; Duration: 30 Days Acti ve Lantus SoloStar 100 UNIT/ML Subcutaneous; Duration: 53 Days Active Jardiance 10 MG Oral; Duration: 30 Days Active Ozempic (0.25 or 0.5 MG/DOSE) 2 MG/3ML Subcutaneous; Duration: 28 Days Active Social History Tobacco Use: Social History Observation Description Date Details (start date - stop date) Never Smoker NA - NA Tobacco Control (Standard) Question Answer Notes Tobacco use: Nonsmoker Additional Findings: Tobacco non-user Current no nsmoker AUDIT-C (Standard) Question Answer Notes Did you have a drink containing alcohol in the p ast year? No Points 0 Interpretation Negative Encounters Encounter Location Date Provider Diagnosis [facility] [address] [address] 02/19/2025 Malik Deleon Plan Of Treatment Next Appt Details Provider Name:Malik Deleon , 06/18/2025 02:00:00 PM, [address] [place] [address], [phone], Progress Notes * Dori POPEB: [birth year] (84 yo M)Acc No.[id number]:02/19/2025 Progress Notes Patient: Fly MIRANDASOHAIL Celestino Provider: Jacqueline Deleon DPM :1940 A ge:84 Y S ex:Male Date:02/19/2025 Address:[address] [place], [place] [id number] Pcp:Lorena Ordaz Subjective: * Chief Complaints: * * ROS: G eneral/Constitutional: Nausea d enies, denies. V omiting d enies, denies.?Hunger Thirst d enies, denies. L oss appetite d enies, denies. C hills d enies, denies. F atigue d enies, denies. F ever d enies, denies. N ight Sweats denies, denies. U nexplained weight loss d enies, denies. U nexplained weight gain?denies, denies. H EENTM: Dentures d enies, denies. D izziness d enies, denies. G lasses/contacts d enies, denies. R etinopathy d enies, denies. B lurred/double vision d enies, denies. T MJ d enies, denies. D ischarge/drainage d enies, denies. I mplants d enies, denies. S ore throat d enies, denies. D ental implants?denies, denies. H aashish of hearing d enies, denies. D ifficulty chewing/swallowing/speaking d enies, denies. N ose bleeds d enies, denies. S ore mouth d enies, denies. R espiratory: On Oxygen d enies, denies. P neumonia/pleurisy d enies, denies. B ronchitis d enies, denies. E mphysema d enies, denies. C oughing?denies, denies. C ough blood d enies, denies. S hortness of breath d enies, denies. W heezing d enies, denies. C ardiovascular: Pacemaker d enies, denies. M SHORT ORDER FRY COOK d enies, denies.?WPW d enies, denies. C HF d enies, denies. H eart attack d enies, denies.?Septal defect d enies, denies. R apid beat d enies, denies. C hest pain d enies, denies. A trial Fib. d enies, denies. M urmur/Palpitations d enies, denies. G astrointestinal: Hemorrhoids d enies, denies. S tomach/Abdominal pain?denies, denies. D ark blood stool d enies, denies. I rritable bowel d enies, denies. C onstipation d enies, denies. D iarrhea d enies, denies. H ematology: Swelling d enies, denies. C lots d enies, denies.?Varicose Veins d enies, denies. B ruising d enies, denies. B leeding problem?denies, denies. G enitourinary: Blood urine d enies, denies. F requent/Painfu/urination/bladder control d enies, denies. K idney stones d enies, denies. I nfection (UTI)?denies, denies. N ephropathy d enies, denies. s ex trans dis (STD) d enies, denies. P rostate d enies, denies. M usculoskeletal: Hammertoes d enies, denies. B unions d enies, denies. B ack Pain d enies, denies. M uscle Cramps/ Resting d enies, denies. M uscle cramps / walking d enies, denies. G eneralized aches and pains d enies, denies. W eakness d enies, denies. I nteg.: Vasquez d enies, denies. S cars d enies, denies. C orns/calluses d enies, denies. I ngrown nails d enies, denies. P ainful nails d enies, denies. O pen Sores d enies, denies. R ashes d enies, denies. ? N eurologic: Difficulty sleeping d enies, denies. B rain disorder?denies, denies. N umbness d enies, denies. B alance trouble d enies, denies. C onfusion d enies, denies. F ainting/blackouts d enies, denies. T ingling d enies, denies. T remors d enies, denies. * Medical History: A rthritis, Asthma, Cataracts, Diabetic. * Family History: M other: diagnosed with Diabetic - NIDDM, Unspecified essential hypertension, Family history of arthritis. F ather: diagnosed with Diabetic - NIDDM, Unspecified essential hypertension, Family history of arthritis. S iblings: diagnosed with Other malignant neoplasm of unspecified site.? * Social History: T obacco Use: T obacco Control (Standard) T obacco use: N onsmoker A dditional Findings: Tobacco non-user C urrent nonsmoker D rugs/Alcohol: D rugs H ave you used drugs other than those for medical reasons in the past 12 months? N o M iscellaneous: C affeine: yes, frequency:. D rug/Alcohol: A JAYASHREE-C (Standard) D id you have a drink containing alcohol in the past year? N o P oints 0 I nterpretation N egative * Medications: T aking Lmicp-4-akyu Ethyl Esters 1 GM Capsule Oral , Taking Lantus SoloStar 100 UNIT/ML Solution Pen-injector Subcutaneous , Taking Jardiance 10 MG Tablet Oral , Taking Ozempic (0.25 or 0.5 MG/DOSE) 2 MG/3ML Solution Pen-injector Subcutaneous , Taking amLODIPine Besylate 5 MG Tablet Oral , Taking BD Pen Needle Bernice U/F 32G X 4 MM Miscellaneous , Taking Fluticasone Propionate 50 MCG/ACT Suspension Nasal , Taking FreeStyle Lite Test - Strip In Vitro , Taking Atorvastatin Calcium 80 MG Tablet TAKE 1 TABLET BY MOUTH EVERY EVENING Oral , Taking Cetirizine HCl 5 MG Tablet TAKE 1 TABLET BY MOUTH EVERY MORNING Oral , Taking Montelukast Sodium 10 MG Tablet TAKE 1 TABLET BY MOUTH EVERY EVENING Oral , Taking NovoLOG FlexPen 100 UNIT/ML Solution Pen-injector Subcutaneous , Taking Lantus SoloStar 100 UNIT/ML Solution Pen- injector INJECT 55 UNITS SUBCUTANEOUSLY EVERY DAY Subcutaneous , Taking Fluticasone Propionate 50 MCG/ACT Suspension INSTILL 1 SPRAY IN EACH NOSTRIL ONCE DAILY IN THE MORNING Nasal , Taking TRUEplus Lancets 33G - Miscellaneous TEST BLOOD SUGAR FOUR TIMES DAILY DIRECTED , Taking Pentips Generic Pen Moose[place] 32G X 4 MM Miscellaneous , Taking Vjjbr-3-dbah Ethyl Esters 1 GM Capsule TAKE 2 CAPSULES BY MOUTH TWICE DAILY IN THE MORNING AND EVENING Oral , Taking Omeprazole 20 MG Capsule Delayed Release TAKE 1 CAPSULE BY MOUTH EVERY MORNING Oral , Taking Clotrimazole 1 % Cream APPLY TOPICALLY TO THE AFFECTED AREA(S) TWICE DAILY FOR 28 DAYS External Objective: * Vitals: Assessment: Plan: * Treatment: * Images: * The named appointment provid er may or may not be the originator of this progress note, and it is not deemed complete until electronically signed by the appointment provider. Sign off status: Pending * Provider: Jacqueline Deleon DPM Date: 0 02/19/2025 Generated for Elayne chatman/Laci/Amira on: 0 05/24/2025 12:29 PM EDT
--- OUTSIDE RECORDS SUMMARY | 2025-03-19 10:00 | XMS_ITS ---
Author Organization [facility] Address [address] [place] [address] Care Team Providers Care Smelter Liner Name Role Phone Lorena Ordaz Primary Care Provider Unav ailable Malik Deleon Unavailable [phone] Encounters Encounter Location Date Provider Diagnosis [address] [address] 03/19/2025 Malik Deleon Plan Of Treatment Next Appt Details Provider Name:Malik Deleon , 06/18/2025 02:00:00 PM, [address] [place], [address], Progress Notes * Celestino POPEDOB: [birth year] (84 yo M)Acc No.[id number]:03/19/2025 Progress Notes Patient: Fly MIRANDASOHAIL Celestino Provider: Jacqueline Deleon DPM :1940 A ge:84 Y S ex:Male Date:03/19/2025 Address:[address] [place], [place] [id number] Pcp:Lorena Ordaz Subjective: * Chief Complaints: * * Medical History: Objective: * Vitals: Assessment: Plan: * Treatment: * Images: * The named appointment provid er may or may not be the originator of this progress note, and it is not deemed complete until electronically signed by the appointment provider. Sign off status: Pending * Provider: Jacqueline Deleon DPM Date: 0 03/19/2025 Generated for Elayne chatman/Laci/Amira on: 0 05/24/2025 12:30 PM EDT
--- NOTE | 2025-05-24 11:02 | HO.NEPHOV ---
Vital Signs 05/24/25 11:04 Height 5 ft 2 in Weight 147 lb 8 oz BMI 27.0 BP 122/60 Blood Pressure Location Rt brachial Position Sitting Pulse 64 Pulse Source Pulse Oximeter Pulse Oximetry (%) 97 Oxygen Delivery Method Room Air Intake Visit Reasons: 3mon follow-up w/labs-LVM Oven Loader Required: Yes Oven Loader Language: Travel Service Consultant Services: Oven Loader Offered & Declined ([facility] official court interpreter services refused ) Accompanied by: Other Relationship Allergies No Known Allergies Allergy (Verified 05/24/25 11:03) HPI Comments Details: Celestino was seen in follow-up of his chronic kidney disease and hypertension. He feels well. He has not had any nephrolithiasis, hematuria, flank pain, pedal edema, urinary symptoms, chest pain, orthostatic symptoms, paroxysmal nocturnal dyspnea, orthopnea. His blood sugar control has been fair. He is claimed to be compliant with his medication. He avoids any nonsteroidal anti-inflammatory medication intake. He had no new systemic complaints. All other systems have been reviewed and were negative [facility] Medical History (Updated 02/01/24 @ 10:48 by Deon Brown MD) Diabetes Hypertension Chronic kidney failure Family History Brother Diabetes Social History Household Members: Spouse Housing: House Do you presently have visiting nurse or other home services: Yes Alcohol intake: former Patient Tobacco Use Status: Never used Tobacco Second Hand Smoke Exposure: No service: No Current occupational status: unemployed Review of Systems Const All systems reviewed & are unremarkable except as noted in HPI and below Physical Exam Vital Signs: Last Vital Signs Pulse 64 05/24/25 11:04 BP 122/60 05/24/25 11:04 Pulse Ox 97 05/24/25 11:04 Oxygen Delivery Method Room Air 05/24/25 11:04 BMI result Body Mass Index 27.0 Const General: comfortable and no acute distress Orientation/consciousness: patient oriented x3 HEENT Head: Yes normocephalic Mouth: Normal oral and palatal mucosa present Eyes EOM: EOMs intact bilaterally Neck Neck: Yes supple Resp Auscultation: clear to auscultation bilaterally Cardio Jugular venous distension: no JVD Rate: regular rate GI Palpation (GI): Soft to palpation Auscultation: normal bowel sounds General: Yes no CVA tenderness Back/Spine/Pelvis Back: no CVA tenderness Skin General skin exam: no rashes or lesions noted Neuro General: patient oriented x3 and moves all extremities Extrem General: Yes no pedal edema Results Reviewed Nephrology Results: Sodium, (135-145) 139 mmol/L 02/22/25 Potassium, (3.3-5.1) 4.6 mmol/L 02/22/25 Chloride, (96-108) 106 mmol/L 02/22/25 Carbon Dioxide, (22-29) 24 mmol/L 02/22/25 BUN, (9-16) 39 mg/dL H 02/22/25 Creatinine, (0.5-1.4) 1.77 mg/dL H 02/22/25 Calcium, (8.4-10.2) 9.9 mg/dL 01/31/25 Phosphorus, (2.7-4.5) 3.4 mg/dL 10/24/24 PTH Intact, (8.7-77.1) 140.0 pg/mL H 10/24/24 Urine Creatinine 72.42 mg/dL 01/31/25 Assessment & Plan Assessment & Plan (1) Hypertension: Code(s): I10 - Essential (primary) hypertension Category: Medical Qualifiers: Hypertension type: primary hypertension Qualified Code(s): I10 - Essential (primary) hypertension (2) Secondary hyperparathyroidism (of renal origin): Code(s): N25.81 - Secondary hyperparathyroidism of renal origin Category: Medical (3) CKD stage 3b, GFR 30-44 ml/min: Code(s): N18.32 - Chronic kidney disease, stage 3b Category: Medical Plan Celestino has baseline stage III B CKD. His blood pressure is at goal. He is on angiotensin receptor tika. His renal functions had been stable. He is on Vitamin D. He is a great candidate for Minubodiance. He should maintain good hydration. He should avoid nonsteroidal anti-inflammatory medications. I did not make any medication changes today. All questions answered. Follow-up given Orders: Orders Electrolytes 4 Months I10 - Essential (primary) hypertension, N18.32 - Chronic kidney disease, stage 3b, N25.81 - Secondary hyperparathyroidism of renal origin Calcium 4 Months I10 - Essential (primary) hypertension, N18.32 - Chronic kidney disease, stage 3b, N25.81 - Secondary hyperparathyroidism of renal origin Creatinine 4 Months I10 - Essential (primary) hypertension, N18.32 - Chronic kidney disease, stage 3b, N25.81 - Secondary hyperparathyroidism of renal origin Complete Blood Count Auto Diff 4 Months I10 - Essential (primary) hypertension, N18.32 - Chronic kidney disease, stage 3b, N25.81 - Secondary hyperparathyroidism of renal origin Parathyroid Hormone Intact 4 Months I10 - Essential (primary) hypertension, N18.32 - Chronic kidney disease, stage 3b, N25.81 - Secondary hyperparathyroidism of renal origin Vitamin D 25-OH Total 4 Months I10 - Essential (primary) hypertension, N18.32 - Chronic kidney disease, stage 3b, N25.81 - Secondary hyperparathyroidism of renal origin Blood Urea Nitrogen 4 Months I10 - Essential (primary) hypertension, N18.32 - Chronic kidney disease, stage 3b, N25.81 - Secondary hyperparathyroidism of renal origin Coding Level of Care Code Est Pt Level 4 (51630) Diagnoses Primary hypertension I10 Hypertension type: primary hypertension Secondary hyperparathyroidism (of renal origin) N25.81 CKD stage 3b, GFR 30-44 ml/min N18.32
[2025-05-24 11:04] VITALS: BP 122/60; PULSE 64; O2SAT 97; BMI 27.0
--- OUTSIDE RECORDS SUMMARY | 2025-05-24 12:30 | XMS_ITS | Patient Health Record ---
Author [facility] Address [address] [place] [address] Care Team Providers Care Community Resource Officer Name Role Phone Lorena Ordaz Primary Care Provider Unav ailable Malik Deleon Unavailable [phone] PrakashAna Unavailable [phone] Reason For Referral No Information Medications Medication SIG (Take, Route, Frequency, Duration) Notes Start Date End Date Status amLODIPine Besylate 5 MG Oral; Duration: 30 Days Active Pentips Generic Pen [place] 32G X 4 MM ; Duration: 40 Days Ac tive Hjmqd-9-qyga Ethyl Esters 1 GM TAKE 2 CAPSULES BY MOUTH TWICE DAILY IN THE MORNING AND EVENING Oral; Duration: 90 Days Active Jardiance 10 MG Oral; Duration: 30 Days Active Fluticasone Propionate 50 MCG/ACT INSTILL 1 SPRAY IN EACH NOSTRIL ONCE DAILY IN THE MORNING Nasal; Duration: 60 Days Active Ozempic (0.25 or 0.5 MG/DOSE) 2 MG/3ML Subcutaneous; Duration: 28 Days Active TRUEplus Lancets 33G - TEST BLOOD SUGAR FOUR TIMES DAILY DIRECTED; Duration: 75 Days Active Omeprazole 20 MG TAKE 1 CAPSULE BY MO UTH EVERY MORNING Oral; Duration: 90 Days Active Clotrimazole 1 % APPLY TOPICALLY TO T HE AFFECTED AREA(S) TWICE DAILY FOR 28 DAYS External; Duration: 28 Days Active FreeStyle Lite Test - In Vitro; Duration: 25 Days Active Atorvastatin Calcium 80 MG TAKE 1 TABLET BY MOUTH EVERY EVENING Oral; Duration: 90 Days Active BD Pen Needle Bernice U/F 32G X 4 MM ; Duration: 40 Days Active Fluticasone Propionate 50 MCG/ACT Nasal; Duration: 60 Days Act jaren Sqysz-0-lzmk Ethyl Esters 1 GM Oral; Duration: 30 Days Acti ve NovoLOG FlexPen 100 UNIT/ML Subcutaneous; Duration: 36 Days Active Lantus SoloStar 100 UNIT/ML Subcutaneous; Duration: 53 Days Active Lantus SoloStar 100 UNIT/ML INJECT 55 UNITS SUBCUTANEOUSLY EVERY DAY Subcutaneous; Duration: 53 Days Active Cetirizine HCl 5 MG TAKE 1 TABLET BY PADMA TH EVERY MORNING Oral; Duration: 30 Days Active Montelukast Sodium 10 MG TAKE 1 TABLET B Y MOUTH EVERY EVENING Oral; Duration: 90 Days Active Social History Tobacco Use: Social [...] Negative Encounters Encounter Location Date Provider Diagnosis [facility] [address] 11/20/2024 Malik Deleon [facility] [address] 02/19/2025 Malik Deleon [facility] [address] 03/06/2025 Malik Deleon Plan Of Treatment Next Appt Details Provider Name:Malik Deleon , 06/18/2025 02:00:00 PM, [address] [place] [address], [phone], Insurance Providers Payer Name Payer Address Payer Phone Subscriber Number Group Number Insured Name Patient Relationship to Insured Coverage Start Date Coverage End Date [facility] [employer] Claims [address] [place] [id number] [phone] [id number] Celestino Pope Self - patient is the insured Medical (General) History Medical History History ICD Code Arthritis asthma Cataracts Diabetic
--- OUTSIDE RECORDS SUMMARY | 2025-05-24 12:30 | XMS_ITS | Patient Health Record ---
Author Organization [facility] Address [address] [place] [address] Care Team Providers Care District Agent Name Role Phone Chivo Meraz Jr [phone] Reason For Referral No Information Plan Of Treatment No Information
--- OUTSIDE RECORDS SUMMARY | 2025-05-24 12:30 | XMS_ITS | Clinical Summary ---
Author Organization [facility] Address [address] [place] [address] Care Team Providers Care 911 Emergency Services Dispatcher Name Role Phone Unknown Primary Care Provider [phone] Social History Tobacco Use Types Packs/Day Years Used Date Smoking Tobacco: Never Assessed Sex and Gender Information Value Date Recorded Sex Assigned at Not on file Legal Sex Male 6:44 PM EST Gender Identity Not on file Sexual Orientation Not on file Plan of Treatment Health Maintenance Due Date Last Done Comments Advance Care Planning 1940 DTaP/Tdap/Td Vaccines (1 - Tdap) 1960 Pneumococcal Vaccines 50+ (1 of 1 - PCV) 1991 Zoster (Shingles) Vaccine (1 of 2) 1991 RSV Vaccine 60 years and old er and Patients (1 - 1-dose 75+ series) 2016 COVID-19 Vaccine (2023-2 5 season) 2025 Hepatitis B Vaccines Aged Out No long er eligible based on patient's age to complete this topic Care Teams [employer] Dispatcher Relationship Specialty Start Date End Date Unknown Unknow Provider Address PCP - General 07/01/21
--- OUTSIDE RECORDS SUMMARY | 2025-05-24 12:30 | XMS_ITS | Clinical Summary ---
Author Organization [facility] Address [address] [place] [address] Phone Care Team Providers Care Spindle Sander Name Role Phone Lorena Ordaz MD Primary Care Provider [phone] Allergies Active Allergy Reactions Criticality Noted Date Comments Albuterol Palpitations Low Diphenhydramine Other (see comments) 05/29/2021 Nsaids 05/29/2021 Medications [place]-3 Fatty Acids (Fish Oil Concentrate) 1000 MG [...] (11/10/2022): Last Assessment & Plan: On left mandaen. Will refer again to dermatology. Cough 07/26/2022 [...] FU with m in 4-5 weeks. Immunizations Immunization Administration Dates Next Due Hepatitis B 11/17/2017,10/19/2017 [...] Visual Foot Exam 11/10/2022 Diabetes: Hemoglobin A1C 07/12/202304/11/2 023, 09/14/2022, 07/02/2020 Influenza Vaccine (#1) 2025 0, 07/08/2017, 07/30/2016, Additional history exists Hepatitis B Vaccine Aged Out 11/17/2017, 8 No longer eligible based on patient's age to complete this topic Pneumococcal Vaccine: 50+ Years Completed 06/11/2022, 11/27/2012, 06/13/1997 Pneumococcal Vaccine: Peds (0 to 5 Years) and At-Risk Patients (6 to 49 Years) Discontinued 06/11/2022, 11/27/2012, 06/13/1997 Procedures Procedure Name Priority [...] mg/dl PVNMA 07/02/2020 us Rtama Conversion LAB [id number] LICITED RESULTS Final Result PVNMA from Last 3 Months or Most Recently Relevant to Health Maintenance Insurance [facility] ([id number]) [facility] ([id number]) Care Teams Spindle Sander Relationship Specialty Start Date End Date Lorena Ordaz MD [address] [place] [phone] PCP - General Internal Medicine 05/05/22
--- OUTSIDE RECORDS SUMMARY | 2025-05-24 12:30 | XMS_ITS | Encounter Summary ---
Author Organization [facility] Address [address] [place] [address] [address] [place] [address] Care Team Providers Care Tissue Technician Name Role Phone Lorena Ordaz MD Primary Care Provider + Yonny Yuan PharmD Unavailable [phone] Encounter Details Date Type Department Care Team ([facility] Contact Info) Description 01/03/2023 Orders Only [facility] [address] [place] [address] [phone] Cristina Gillespie LPN Social History Tobacco Use [...] Upcoming Encounters Date Type Department Care Team ([facility] Contact Info) Description 05/28/2025 10:30 AM EDT Office Visit [facility] [address] [place] [address] [phone] Lorena Ordaz MD [address] [place] [phone] 06/14/2025 10:00 AM EDT Medication Management [facility] [address] [place] [address] [phone] Yonny Yuan, PharmD [address] [place] [phone] documented as of this encounter Visit Diagnoses Not on filedocumented in this encounter Additional Health Concerns Assessment Noted Time PHQ-9 Depression Total Score: 0 11/20/19 23 12:54 PM EDT documented as of this encounter Care Teams Tissue Technician Relationship Specialty Start Date End Date Lorena Ordaz MD [address] [place] [phone] PCP - General Family Medicine 07/19/19 Yonny Yuan, Shirley [address] [place] [address] [phone] Pharmacist Internal Medicine 05/30/23 documented as of this encounter
--- OUTSIDE RECORDS SUMMARY | 2025-05-24 12:30 | XMS_ITS | Clinical Summary ---
Author Organization [employer] Address [address] [place] [address] [address] [place] [address] Care Team Providers Care High Lift Driver Name Role Phone Lorena Mesa MD Primary Care Provider + Yonny Yuan PharmD Unavailable [phone] Allergies Active Allergy Reactions Criticality Noted Date Comments Albuterol Palpitations Low Diphenhydramine 05/29/2021 Other reaction(s): Other (see comments) Nsaids Other reaction(s): proteinuria Statins Other reaction(s): elevated CPK Medications Spacer/Aero-Holdin g Chambers (AeroChamber Z-Stat Plus) inhaler by Other route. Use as instructed Active albuterol 108 (90 Base) MCG/ACT inhalerIndications :Pulmonary emphysema, unspecified emphysema type (CMS/HCC) Inhale 2 puffs every 4 (four) hours. To 6 hours 18 g 2 10/12/19 23 Active Alcohol Swabs (Alcohol Prep) 70 % pads USE DIRECTED EVERY DAY 100 each 03/09/20 23 Active Blood Pressure Monitor kit Use as directed daily to check blood pressure 1 kit 05/30/20 23 Active Aspirin Adult Low Strength 81 MG EC tabletIndications: Stage 3b chronic kidney disease (CMS/HCC) TAKE 1 TABLET BY MOUTH EVERY EVENING 90 tablet 07/20/20 23 Active Fluticasone Furoate-Vilanterol (Breo Ellipta) 200-25 MCG/ACT aerosol powder Inhale 1 puff in the morning. 180 each 11 11/28/19 24 Active Blood Glucose Monitoring Suppl (Sal[employer] [place] Lite) w/Device kit TEST BLOOD SUGAR TWICE DAILY 1 kit 06/21/20 24 Active Pentips 32G X 4 MM miscIndications:Ty pe 2 diabetes mellitus with stage 3b chronic kidney disease, with long-term current use of insulin ([facility]) USE DIRECTED FIVE TIMES DAILY 200 each 11 07/10/20 24 Active Eye Itch Relief 0.035 % solutionIndication s:Allergic conjunctivitis of both eyes INSTILL 1 DROP IN EACH EYE TWICE DAILY 10 mL 3 08/21/20 24 Active omega-3 acid ethyl esters (Lovaza) 1 g capsule TAKE 2 CAPSULES BY MOUTH TWICE DAILY IN THE MORNING AND EVENING 360 capsule 1 11/13/19 25 Active TRUEplus Lancets 33G miscIndications:Ty pe 2 diabetes mellitus with stage 3b chronic kidney disease, with long-term current use of insulin ([facility]) TEST BLOOD SUGAR FOUR TIMES DAILY DIRECTED 300 each 5 11/20/19 25 Active empagliflozin (Jardiance) 10 MGIndications:Type 2 diabetes mellitus with stage 3b chronic kidney disease, with long-term current use of insulin ([facility]) TAKE 1 TABLET BY MOUTH EVERY MORNING 30 tablet 11 12/04/19 25 Active NovoLOG FLEXPEN 100 UNIT/ML pen INJECT SUBCUTANEOUSLY THREE TIMES DAILY BEFORE MEALS PER SLIDING SCALE: BLOOD SUGAR < 150 = DO NOT USE, 151-200 = 2 UNITS, 201-250 = 4U, 251-300 = 6U, 301-350 = 8U, 350-400 = 10U, > 400 = 12U AND CALL DOCTOR 15 mL 11 12/21/19 25 Active insulin glargine (Lantus SoloStar) 100 UNIT/ML penIndications:Typ e 2 diabetes mellitus with stage 3b chronic kidney disease, with long-term current use of insulin ([facility]) INJECT 55 UNITS SUBCUTANEOUSLY EVERY DAY 30 mL 2 12/26/19 25 Active montelukast (Singulair) 10 MG tablet TAKE 1 TABLET BY MOUTH EVERY EVENING 90 tablet 01/05/20 25 Active glucose blood (FREESTYLE LITE) test stripIndications:T ype 2 diabetes mellitus with stage 3b chronic kidney disease, with long-term current use of insulin (CMS/HCC) USE DIRECTED TO TEST BLOOD SUGAR FOUR TIMES DAILY 100 strip 11 01/18/20 25 Active valsartan-hydroCHL OROthiazide (Diovan-HCT) 160-12.5 MG tablet TAKE 1 TABLET BY MOUTH EVERY MORNING 90 tablet 1 03/14/20 25 Active omeprazole (PriLOSEC) [address] capsuleIndications :Reflux gastritis TAKE 1 CAPSULE BY MOUTH EVERY MORNING 90 capsule 1 03/14/20 25 Active Ozempic, 0.25 or 0.5 MG/DOSE, 2 MG/3ML solution pen-injectorIndica tions:Type 2 diabetes mellitus with stage 3b chronic kidney disease, with long-term current use of insulin ([facility]) INJECT 0.5 MG SUBCUTANEOUSLY EVERY 7 DAYS IN THE ABDOMEN, THIGHS, OR UPPER ARM, ROTATE INJECTION SITES. 3 mL 5 03/14/20 25 Active fluticasone (Flonase) 50 MCG/ACT nasal sprayIndications:N on-seasonal allergic rhinitis due to pollen INSTILL 1 SPRAY IN EACH NOSTRIL ONCE DAILY IN THE MORNING 48 g 03/21/20 25 Active atorvastatin (Lipitor) 80 MG tabletIndications: Other hyperlipidemia TAKE 1 TABLET BY MOUTH EVERY EVENING 90 tablet 1 04/10/20 25 Active cetirizine (ZyrTEC) 5 MG tabletIndications: Non-seasonal allergic rhinitis due to pollen,Allergic conjunctivitis of both eyes TAKE 1 TABLET BY MOUTH EVERY MORNING 90 tablet 1 04/15/20 25 Active amLODIPine (Norvasc) 5 MG tabletIndications: Primary hypertension TAKE 1 TABLET BY MOUTH EVERY MORNING 90 tablet 1 04/15/20 25 Active Active Problems Problem Noted Date Diagnosed Date Chronic right hip pain 02/25/2025 Assessment & Plan (02/25/2025 4:38 PM EDT): Exacerbation of pain status post fall last week. Reminded patient to ambulate with cane, use Tylenol as needed and diclofenac gel on affected areas Ordered x-rays Fall (on)(from) sidewalk curb, initial encounter 02/25/2025 Assessment & Plan (02/25/2025 4:38 PM EDT): Slip and fall injury, no prodromal symptoms Reminded him to use cane at all times for ambulation See above for workup Overweight 02/25/2025 Assessment & Plan (02/25/2025 4:36 PM EDT): Patient has lost about 40 pounds since she was started on Ozempic, tolerates well. Will continue Ozempic 0.5 mg, reminded him regarding lifestyle modifications Discussed re weight reduction options including exercise, life style modifications, diet. Recommended to decrease soda and sugary beverage consumption, increase protein intake with meals (at least 1 portion of protein with each meal) to assist with satiety, increase dietary fiber Recommended at least 150 min/week of moderate intensity exercise. Follow-up in 6 months Tinea pedis of both feet 01/12/2024 Assessment & Plan (01/12/2024 12:17 PM EDT): Counseled regarding tight control of DM Information of podiatry appointment given to RELAY REPAIRER to reschedule appointment Keep feet clean and [...] scooter for long distances. Pt has a RELAY REPAIRER to help with ADLs. Assessment & Plan [...] 07/26/2022 Viral upper respiratory tract infection 07/26/20 22 Vitamin D deficiency 07/26/2022 Initial patient encounter 07/26/2022 Benign hypertensive renal disease 05/29/2021 Obstructive sleep apnea syndrome 04/21/2012 Assessment & [...] FU in 4-5 weeks. Assessment & Plan (11/15/2024 2:04 PM EDT): Doing well, no recent exacerbations. Continue Breo BID and Singulair. Use Albuterol prn. Non-smoker. Assessment & Plan (11/28/2023 12:03 PM EDT): [...] Erectile dysfunction 04/21/2012 Osteoarthritis of knee 04/21/2012 Assessment & Plan (02/25/2025 4:37 PM EDT): Exacerbation of pain status post fall last week. Reminded patient to ambulate with cane, use Tylenol as needed and diclofenac gel on affected areas Ordered x-rays Benign neoplasm of bone 04/21/2012 Type 2 diabetes mellitus 02/09/2012 Assessment & Plan (02/25/2025 4:35 PM EDT): Controlled. A1c is at goal. Continue on Ozempic 0.5 mg + Lantus 52 units + NovoLog sliding scale + Jardiance Counseled re more frequent low calorie/carb meals. Check fgstk 1x daily Encouraged physical activity as tolerated. FU in 3months. He has ophthalmology appointment is overdue, has an appointment on March 2025 Foot examination is normal, no diabetic neuropathy Assessment & Plan (11/15/2024 2:03 PM EDT): Better controlled, A1c not at goal yet. Continue on Ozempic 0.5 mg + Lantus 52 units + Jardiance + Novolog. Counseled re more frequent low calorie/carb meals. Check fgstk x 3 daily Encouraged physical activity as tolerated. FU in 3 months. Assessment & Plan (05/17/2024 12:43 PM EDT): [...] Encouraged physical activity as tolerated. FU at [facility] clinic in 1 m and w/ me [...] with me in 6 weeks and with [facility] as scheduled Assessment & Plan (02/24/2023 10:41 [...] directions from previous appt. D/w him and RELAY REPAIRER Dmitri re increasing Lantus by 3u q3-4w [...] Counseled to have charan Enrique vax booster. Essential hypertension 02/09/2012 Assessment & Plan (03/14/2024 9:52 AM EDT): Controlled. Compliant w/meds Continue Valsartan/hctz + amlodipine 5 Counseled re low salt diet/increase moderate physical activity. Check home BP BIW and prn CP/ASM/LEE Non smoking patient. Assessment & Plan (11/28/2023 [...] me in 6 weeks. Assessment & Plan (02/25/2025 4:37 PM EDT): >>ASSESSMENT AND PLAN FOR ESSENTIAL HYPERTENSION WRITTEN ON 09/14/2022 2:06 PM BY ROSAURA ANDERSON Better controlled. -Continue Diovan HTCZ + amlodipine -Will obtain recent BMP from nephrology and follow up with me in 1 month. -Encouraged to increase physical activity and limit sodium intake. >>ASSESSMENT AND PLAN FOR HYPERTENSION WRITTEN ON 09/14/2022 5:24 PM BY LORENA MESA MD Controlled. Compliant w/meds Continue amlodipine same dose Counseled re low salt diet/increase moderate physical activity. Check home BP BIW and prn CP/SAM/LEE Non smoking patient. Assessment & Plan (08/02/2022 9:01 PM EST): Borderline controlled, it was normal 1m ago. No med changes, continue Diovan/hctz, amlodipine. He's to bring med list or box at next appt. FU in 6w w me. Counseled re low salt diet/increase moderate physical activity. Check home BP BIW and prn CP/SAM/LEE Non smoking patient. Resolved Problems Problem Noted Date Diagnosed Date Resolved Date Current drinker 07/26/2022 02/25/2025 Obesity with body mass index 30 or greater 05/16/2018 02/25/2025 Encounters Date Type Department Care Team Description 04/13/2025 Refill [facility] [address] [place] [address] Lorena Mesa MD Non-seasonal allergic rhinitis due to pollen; Allergic conjunctivitis of both eyes; Primary hypertension 04/09/2025 Refill [facility] [address] [place] [address] Lorena Mesa MD Other hyperlipidemia 04/03/2025 2:00 PM EDT Office Visit [facility] [address] [place] [address] Trey, Gela, OD Diabetes type 2, no ocular involvement ([facility]) (Primary Dx); Optic nerve cupping of both eyes; Allergic conjunctivitis of both eyes; Dominant drusen, bilateral; Choroidal nevus of right eye; Pseudophakia of both eyes; Presbyopia 04/03/2025 Travel 03/21/2025 Refill [facility] [address] [place] [address] [place], Thomas, [facility] Non-seasonal allergic rhinitis due to pollen 03/11/2025 Refill [facility] [address] [place] [address] Yonny Yuan, PharmD Type 2 diabetes mellitus with stage 3b chronic kidney disease, with long-term current use of insulin ([facility]) 03/11/2025 Refill [facility] [address] [place] [address] Lorena Mesa MD Reflux gastritis 02/25/2025 3:45 PM EDT Office Visit [facility] [address] [place] [address] Lorena Mesa MD Fall (on)(from) [facility], initial encounter (Primary Dx); Type 2 diabetes mellitus with stage 3b chronic kidney disease, with long-term current use of insulin ([facility]); Primary osteoarthritis of right knee; Chronic right hip pain; Overweight; Dietary counseling; Exercise counseling 02/25/2025 Travel from Last 3 Months Immunizations Immunization Administration Dates Next Due Hep B, adult [...] Sign Reading Time Taken Comments Blood Pressure 118/70 02/25/2025 4:05 PM EDT Pulse 65 02/25/2025 4:05 PM EDT Temperature 36.2 C (97.1 F) 02/25/2025 4:05 PM EDT Respiratory Rate 19 02/25/2025 4:05 PM EDT Oxygen Saturation 96% 02/25/2025 4:05 PM EDT Inhaled Oxygen Concentration - - Weight 66.2 kg (146 lb) 02/25/2025 4:05 PM EDT Height 157.5 cm (5' 2 ) 02/25/2025 4:05 PM EDT Body Mass Index 26.7 02/25/2025 4:05 PM EDT Plan of Treatment Upcoming Encounters Date Type Department Care Team (Late st Contact Info) Description 05/28/2025 10:30 AM EDT Office Visit [facility] [address] [place] [phone] Lorena Mesa MD [address] [place] [address] 06/14/2025 10:00 AM EDT Medication Management [facility] [address] [place] [id number] Yonny Yuan, PharmD [address] [place] [address] Health Maintenance Due Date Last Done Comments Derm Melanoma Skin Check 02/20/1941 RSV Patients and Patients Aged 60 years or older (1 - 1-dose 75+ series) 2016 Hepatitis B Vaccines (3 of 3 - 19+ 3-dose series) 04/18/2018 11/17/2017, 10/19/2017 SDOH Screening 11/27/2024 11/28/2023 COVID-19 Vaccine ( season) 2025 08/02/2022, 02/18/2022, 08/25/2021, Additional history exists Influenza Vaccine (#1) 2025 , 06/08/2023, 06/11/2022, Additional history exists Depression Screening 05/17/2025 05/17/2024, 05/17/20 24 Diabetes: Hemoglobin A1C 08/27/2025 025, 01/22/2025, 10/19/2024, Additional history exists Lipid Panel 01/31/2026 01/31/2025, 05/0 10/2023, 10/13/2022, Additional history exists Alcohol/Substance Use Screening 02/25/2026 02/25/2025 Diabetes: Foot Exam 02/25/2026 02/25/2025, 02/25/2025, 02/25/2025, Additional history exists Tobacco Screening 04/23/2026 04/23/2025 Eye Exam 04/03/2027 04/03/2025, 08/0 01/2025, 04/03/2025, Additional history exists DTaP/Tdap/Td Vaccines (2 - Td or Tdap) 11/18/2027 11/17/2017, 02/03/2007, 12/19/1996, Additional history exists Pneumococcal Vaccine: 50+ Years Completed 06/11/2022, 11/27/2012, 06/13/1997 Zoster Vaccines Completed 05/30/2023, 04/0 12/2021, 07/08/2017 HIB Vaccines Aged Out No longer eligi [...] patient's age to complete this topic Meningococcal B Vaccine Aged Out No l onger eligible based on patient's age to complete [...] Author Blood Pressure < 140/90 Blood Pressure 118/70(2024 4:05 PM EDT) No Yonny Yuan, Shirley Hemoglobin A1c < 7 Result Component 6.4( 4:06 PM EDT) No Yonny Yuan, Shirley Note: Given age and PMH may be reasonable if goal up to 8% Procedures Procedure Name Priority Date/Time Associated Diagnosis Comments OCT, RETINA - OU - BOTH EYES Routine 04/03/2025 2:00 PM EDT Dominant drusen, bilateral POCT GLYCATED HEMOGLOBIN, TOTAL Routine 02/25/2025 4:06 PM EDT Type 2 diabetes mellitus with stage 3b chronic kidney disease, with long-term current use of insulin ([facility]) POCT GLUCOSE Routine 02/25/2025 4:06 PM EDT Type 2 diabetes mellitus with stage 3b chronic kidney disease, with long-term current use of insulin ([facility]) LIPID PANEL WITH REFLEX TO DIRECT LDL Routine 01/31/2025 7:44 AM EDT Type 2 diabetes mellitus with stage 3b chronic kidney disease, with long-term current use of insulin ([facility]) from Last 3 Months or Most Recently Relevant to Health Maintenance Results * OCT, Retina - OU - Both Eyes (04/03/2025 2:00 PM EDT) Narrative Gela Yang, OD - 04/25/2025 3:39 PM EDT Images from the original result were not included. OCT [facility] Optical Coherence Tomography Interpretation Report Measurements: OD OS Macula Thickness 250 microns 237 microns Test findings: OD: Normal foveal contour, no cystoid macular edema, medium to large drusen scattered around the macula, no subretinal fluid OS: Normal foveal contour, no cystoid macular edema, medium to large drusen scattered around the macula, more concentrated in the superior macula, no subretinal fluid Impression and Plan: Bilateral dominant drusen, stable to previous visit. Will monitor at his next exam. Gela Yang OD OPHTH TOMOGRAPHY Final Result * (ABNORMAL) POCT HGB A1C (02/25/2025 4:06 PM EDT) Hemoglobin A1C 6.4(A) 4.0 - 5.7 % QC Media Lot # [id number] Lot# Expiration Date Blood 02/25/2025 4:06 PM EDT Lorena Mesa MD POINT OF CARE TEST ENTER /EDIT ORDERABLES Final Result * POCT Glucose (02/25/2025 4:06 PM EDT) Glucose Blood, POC 150 60 - 200 mg/dL QC Media Lot # [id number] Lot# Expiration Date Blood Capillary blood specimen / Unknown 02/25/2025 4:06 PM EDT Lorena Mesa MD POINT OF CARE TEST ENTER /EDIT ORDERABLES Final Result * (ABNORMAL) Lipid Panel with Reflex to Direct LDL (01/31/2025 7:44 AM EDT) Triglycerides 145 <150 mg/dL [facility] Comment:Desirable Triglyceri de: less than 150 mg/dLBorderline High Triglyceride 150-199 mg/dLHigh Triglyceride: 200-499 mg/dLVery High Triglyceride: greater than or equal to 5OO mg/dL Cholesterol 180 <200 mg/dL [facility] Comment:Desirable Cholestero l: less than 200 mg/dLBorderline High Cholesterol: 200-239 mg/dLHigh Cholesterol: greater than 239 mg/dL LDL Cholesterol Calculated 118(H) <100 mg/dL [facility] Comment:Desirable LDL: less than 100 mg/dLNear Optimal/Above Optimal LDL: 110- 129 mg/dLBorderline High LDL: 130-159 mg/dLHigh LDL: 160-189 mg/dLVery High LDL: greater than or equal to 190 mg/dL HDL Cholesterol 33(L) >40 mg/dL [facility] Comment:Desirable HDL: great er than 40 mg/dL Note: This HDL assay may give artificially low results in patients with liver disease. Blood 01/31/2025 7:44 AM EDT 01/31/2025 7:44 AM EDT Lorena Mesa MD LAB BLOOD ORDERABLES Fin al Result [facility] [address] [place] [address] [phone] from Last 3 Months or Most Recently Relevant to Health Maintenance Insurance [facility] OPTIONS (O D-SNP) E[place]AL BROWN [id number] Care Teams High Lift Driver Relationship Specialty Start Date End Date Lorena Mesa MD [address] [place] [phone] PCP - General Family Medicine 07/19/19 Yonny Yuan, PharmD [address] [place] [phone] Pharmacist Internal Medicine 05/30/23
== END 2025-05-24 11:19 | disposition home or self-care (01) ==
LOC: HO.HKA 10:48
PROVIDERS: PCP Family Medicine; Visit Provider Internal Medicine Nephrology
DX: I10 Essential (primary) hypertension (principal); N25.81 Secondary hyperparathyroidism of renal origin; N18.32 Chronic kidney disease, stage 3b
CPT/HCPCS: 99214

== ENCOUNTER → 2025-05-24 10:48 | Outpatient (BNVA) | payer OTHER, SELFPAY | PROVIDERS: PCP Family Medicine; Visit Provider Internal Medicine Nephrology | DX: E11.22 Type 2 diabetes mellitus with diabetic chronic kidney disease (principal); I12.9 Hypertensive chronic kidney disease with stage 1 through stage 4 chronic kidney disease, or unspecified chronic kidney disease; N18.32 Chronic kidney disease, stage 3b; N25.81 Secondary hyperparathyroidism of renal origin | CPT/HCPCS: 99212 ==

== ENCOUNTER 2025-07-15 13:43 | Emergency (ER) | payer OTHER, SELFPAY ==
--- NOTE | ~2025-07-15 | CT_ITS ---
CLINICAL HISTORY: left nasal mass. cancer? abscess? CT MAXILLOFACIAL WITHOUT CONTRAST Comparison: None provided Findings: No acute fracture or dislocation. Temporomandibular joints are intact. There is opacification of the frontal, ethmoid, maxillary and sphenoid sinuses. There is an irregular exophytic bone density mass in the left frontal sinus extending to the left ethmoid sinus measuring approximately 1.9 x 2.4 x 1.6 cm (Length x Height x Width). There is opacification of the bilateral nasal cavities, left greater than right. No fluid in the visualized mastoid air cells. Visualized orbits: Bilateral aphakia. No foreign bodies. No acute abnormalities in the visualized intracranial contents. No wall enhancing fluid collection. IMPRESSION: 1. Findings are suggestive of a left fronto-ethmoidal osteoma measuring 2.4 cm in greatest diameter. 2. Pansinusitis. 3. Opacification of the nasal cavity. An underlying mass cannot be excluded. Recommend ENT consultation. 4. No evidence for abscess formation. This document has been electronically signed by: Mehreen Grewal DO on 07/15/2025 18:03:05
[2025-07-15 14:33] VITALS: BP 130/67; PULSE 78; RESP 16; TEMP 36.3; O2SAT 95; BMI 28.2
--- NOTE | 2025-07-15 14:51 | ED.GENADULT ---
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 Patricia HPI narrative: 84-year-old male came in after his daughter noticed MS growing out of his left nostril a week ago and the patient himself did not feel it or Notice it until his daughter told him about it. Patient was seen at his PCP office today and was referred to the ED. No recent loss of weight, no nasal bleed, no nasal discomfort, no change in the smelling , no change of voice. the mass is not causing difficulty breathing or obstruction of the airway. Related Data Home Medications ?Medication ?Instructions ?Recorded ?Confirmed amlodipine 5 mg tablet 1 tab PO QAM 12/13/20 12/13/20 aspirin 81 mg tablet,delayed 1 tab PO QPM 12/13/20 12/13/20 release atorvastatin 80 mg tablet 1 tab PO QPM 12/13/20 12/13/20 fluticasone furoate 200 1 puff inhalation DAILY 12/13/20 12/13/20 mcg-vilanterol 25 mcg/dose inhalation powder (Breo Ellipta) glipizide 10 mg tablet, extended 1 tab PO BID 12/13/20 12/13/20 release 24 hr montelukast 10 mg tablet 1 tab PO QPM 12/13/20 12/13/20 omega-3 fatty acids-vitamin E 1 cap BID 12/13/20 12/13/20 1,000 mg capsule omeprazole 20 mg capsule,delayed 1 cap PO QAM 12/13/20 12/13/20 release valsartan 160 1 tab PO QAM 12/13/20 12/13/20 mg-hydrochlorothiazide 12.5 mg tablet insulin glargine 100 unit/mL (3 unit subcut 09/30/23 mL) subcutaneous pen (Lantus Solostar U-100 Insulin) sitagliptin phosphate 25 mg tablet 25 mg PO DAILY 09/30/23 (Januvia) semaglutide 0.25 mg or 0.5 mg (2 mg subcut 08/01/24 mg/3 mL) subcutaneous pen injector (Ozempic) Previous Rx's ?Medication ?Instructions ?Recorded albuterol sulfate 90 mcg/actuation 2 puff inhalation Q6H PRN 12/13/20 aerosol inhaler (Proventil HFA) shortness of breath or wheezing #8.5 grams Allergies Allergy/AdvReac Type Severity Reaction Status Date / Time No Known Allergies Allergy Verified 07/15/25 14:36 Review of Systems Review of Systems: All other systems are reviewed and are negative Constitutional: Reports as per HPI and Reports no additional constitutional complaints Eyes: Reports as per HPI and Reports no additional eye complaints Reports system reviewed and no additional complaints, except as documented Cardiovascular: Reports as per HPI and Reports no additional cardiovascular complaints Respiratory: Reports as per HPI and Reports no additional respiratory complaints Gastrointestinal: Reports as per HPI and Reports no additional gastrointestinal complaints Genitourinary: Reports no additional female genitourinary complaints Musculoskeletal: Reports no additional musculoskeletal complaints Skin/Breast: Reports system reviewed and no additional complaints, except as docu Psychiatric: Reports no additional psychiatric complaints Endocrine: Reports no additional endocrine complaints Hematologic/Lymphatic: Reports no additional hematologic/lymphatic complaints Allergic/Immunologic: Reports no additional allergic/immunologic complaints Reports system reviewed and no additional complaints, except as documented and Reports Abnormal speech present [facility] Past Medical History Medical History Diabetes Hypertension Chronic kidney failure Family History Family History Brother Diabetes Social History Social History Household Members: Spouse Housing: House Do you presently have visiting nurse or other home services: Yes Alcohol intake: former Patient Tobacco Use Status: Never used Tobacco Smoked in Last 30 Days: No Second Hand Smoke Exposure: No Use of substances other than those prescribed or required for medical reasons: No Advance Directives: No Advance Directives Information Provided: No Do you have a plan to hurt others: No Plan service: No Current occupational status: unemployed Physical Exam ED Vital Signs: Vital Signs - 24 hr 07/15/25 14:33 07/15/25 18:34 07/15/25 19:09 Temperature 97.4 F 97.1 F 97.1 F Pulse Rate 78 66 66 Respiratory Rate 16 13 13 Blood Pressure 130/67 131/65 131/65 Pulse Oximetry 95 94 94 Oxygen Delivery Method Room Air Room Air Room Air BMI result Body Mass Index 28.2 Vital signs have been reviewed and appear to be correct. Blood pressure elevated. Heart rate normal. Respiratory rate normal. Temperature normal. Oxygen saturation normal. Appearance: Alert. Oriented X3. No acute distress. Head: Normal external exam. Normocephalic. Atraumatic. No Bowman signs noted. No raccoon eyes noted Eyes: PERRLA. EOMI. Conjunctiva and sclera normal. Eyelids normal. ENT: 2 x 2 cm mass at the orifice of the left naris, soft, slightly mobile. TM's Normal. Pharynx normal. Uvula midline. Moist mucous membranes. No trismus noted. No drooling noted. No muffled voice noted. Neck: Normal inspection. Neck supple. FROM. No adenopathy. Thyroid Normal. No meningeal signs. No neck mass noted. CVS: Normal heart rate and rhythm. Heart sound normal. No murmurs noted. Pulses normal throughout. Respiratory: No respiratory distress. Painless inspiration. Breath sounds normal. No wheezes/rales/rhonchi noted. Chest nontender. No accessory muscle usage noted or decreased air movement noted. Abdomen: Soft and nontender. Bowel sounds normal in all 4 quadrants. No distention noted. No organomegaly noted. No visible injury noted. Back: No CVA tenderness. Full range of motion noted. Skin: Skin warm and dry. Normal skin color. Normal skin turgor. No rashes/lesions/lacerations noted. Extremities: No lower extremity edema. Extremities exhibit normal range of motion. Extremities nontender. Neuro: Oriented X 3. Cranial nerve exam: II-XII are grossly intact No motor deficit. No sensory deficit. Reflexes normal. Course Course Course Narrative: RME: 81 year male presents to ED for unusual old growing mass in left near for the past 5 days. Patient denies any fever or trauma. 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 Patient will need ENT follow-up. Time: 18:35 Medical Decision Making Differential Diagnosis Differential Diagnoses: The differential diagnosis associated with the presentation includes ( Sinus osteoma, abscess, infection, tumor , airway compromise.) Admission/Observation Consideration of admission/observation: Escalation of care including admission/observation considered Lab Data MDM Lab Attestation statement: I reviewed the patient's lab results. 07/15/25 15:09 07/15/25 15:09 Labs: Lab Results 07/15/25 Range/Units 15:09 WBC 9.6 (4.8-10.8) X10*3/uL RBC 5.01 (4.60-5.80) X10*6/uL Hgb 14.5 (14.0-18.0) g/dl Hct 44.5 (42.0-52.0) % MCV 88.8 (80.0-98.0) fL MCH 28.9 (27.0-33.0) pg MCHC 32.6 (31.0-36.0) g/dl RDW 12.8 (11.0-16.0) % Plt Count 251 (160-400) X10*3/uL MPV 8.8 L (9.4-12.4) fL Immature Gran % (Auto) 0.2 (0.0-0.4) % Neut % (Auto) 68.9 (45-73) % Lymph % (Auto) 18.4 L (20-40) % Gillespie % (Auto) 10.1 (2-11) % Eos % (Auto) 1.9 (0-4) % Baso % (Auto) 0.5 (0-2) % Lymph # (Auto) 1.8 (1.2-4.9) X10*3/uL Gillespie # (Auto) 1.0 (0.1-1.2) X10*3/uL Eos # (Auto) 0.2 (0.0-0.4) X10*3/uL Baso # (Auto) 0.1 (0.0-0.2) X10*3/uL Abs Immat Gran (auto) 0.02 (0.00-0.03) X10*3/uL Absolute Neuts (auto) 6.6 (2.0-8.3) x10*3/uL Absolute Nucleated RBC 0.000 (0.0-0.012) X10*3/uL Nucleated RBC % (auto) 0.0 (0.0-0.2) /100WBC Sodium 142 (135-145) mmol/L Potassium 4.2 (3.3-5.1) mmol/L Chloride 105 (96-108) mmol/L Carbon Dioxide 28 (22-29) mmol/L Anion Gap 13 (12-20) BUN 47 H (9-16) mg/dL Creatinine 2.24 H (0.5-1.4) mg/dL Estim Creat Clear Calc 21.4 Estimated GFR 28 Random Glucose 193 H (60-115) mg/dL Calcium 10.0 (8.4-10.2) mg/dL Total Bilirubin 0.5 (0.0-1.0) mg/dL AST 28 (5-37) U/L ALT 20 (0-40) U/L Alkaline Phosphatase 58 (39-117) U/L Total Protein 8.0 (6.5-8.0) g/dL Albumin 4.6 (3.5-5.0) g/dL Independent Interpretation I performed an independent interpretation of an: CT Scan ( Facial CT:1. Findings are suggestive of a left fronto-ethmoidal osteoma measuring 2.4 cm in greatest diameter. 2. Pansinusitis. 3. Opacification of the nasal cavity. An underlying mass cannot be excluded. Recommend ENT consultation. 4. No evidence for abscess formation.) Radiology Impression Discussion of test interpretation with radiology: I have reviewed the radiologist's reading. 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 You have 3 different numbers for 3 different ENT doctors, make an appointment with 1 of the for follow-up. Prescriptions: No Action albuterol sulfate [Proventil HFA] 90 mcg/actuation HFA aerosol inhaler 2 puff inhalation Q6H PRN (Reason: shortness of breath or wheezing) Qty: 8.5 0RF atorvastatin 80 mg tablet 1 tab PO QPM glipizide 10 mg tablet extended release 24hr 1 tab PO BID valsartan-hydrochlorothiazide 160-12.5 mg tablet 1 tab PO QAM amlodipine 5 mg tablet 1 tab PO QAM aspirin 81 mg tablet,delayed release (DR/EC) 1 tab PO QPM omeprazole 20 mg capsule,delayed release(DR/EC) 1 cap PO QAM montelukast 10 mg tablet 1 tab PO QPM omega-3 fatty acids-vitamin E 1,000 mg Capsule 1 cap BID Breo Ellipta 200-25 mcg/dose blister with device 1 puff inhalation DAILY Ozempic 0.25 mg or 0.5 mg (2 mg/3 mL) pen injector subcut insulin glargine [Lantus Solostar U-100 Insulin] 100 unit/mL (3 mL) insulin pen subcut Januvia 25 mg tablet 25 mg PO DAILY Referrals: Oz Richmond MD [Physician, Otolaryngology (ENT)] Vivian Franco PA-C [Nurse Practitioner, Ear, Nose, Throat] Fox Hargrove MD [Physician, Otolaryngology (ENT)] Lorena Ordaz MD [Primary Care Provider, Internal Medicine] Interventions: ED Discharge Assessment Last Done: 07/15/25 19:09 Discharge Date/Time: 07/15/25 19:10 Print Language: Japanese
[2025-07-15 15:23] LABS: MANUAL DIFF FLAG NO
[2025-07-15 15:26] LABS: Hematocrit 44.5 % (42.0-52.0); Hemoglobin 14.5 g/dl (14.0-18.0); Imm Gran Abs Auto 0.02 X10*3/uL (0.00-0.03); Imm Gran Pct Auto 0.2 % (0.0-0.4); Lymphocytes Absolute Auto 1.8 X10*3/uL (1.2-4.9); Mean Corpuscular HGB Conc 32.6 g/dl (31.0-36.0); Mean Corpuscular Hemoglobin 28.9 pg (27.0-33.0); Mean Corpuscular Volume 88.8 fL (80.0-98.0); NRBC Abs Auto 0.000 X10*3/uL (0.0-0.012); NRBC Pct Auto 0.0 /100WBC (0.0-0.2); Platelet Count 251 X10*3/uL (160-400); Red Blood Count 5.01 X10*6/uL (4.60-5.80); White Blood Count 9.6 X10*3/uL (4.8-10.8)
[2025-07-15 15:47] LABS: Alanine Aminotransferase 20 U/L (0-40); Albumin Level 4.6 g/dL (3.5-5.0); Alkaline Phosphatase 58 U/L (39-117); Anion Gap 13 (12-20); Aspartate Amino Transferase 28 U/L (5-37); Blood Urea Nitrogen 47 mg/dL (9-16); Calcium 10.0 mg/dL (8.4-10.2); Carbon Dioxide 28 mmol/L (22-29); Chloride 105 mmol/L (96-108); Creatinine Clr Calc Pharmacy 21.4; Estimated Glomerular Filt Rate 28; Potassium 4.2 mmol/L (3.3-5.1); Sodium 142 mmol/L (135-145); Total Protein 8.0 g/dL (6.5-8.0)
[2025-07-15 18:34] VITALS: BP 131/65; PULSE 66; RESP 13; TEMP 36.2; O2SAT 94
[2025-07-15 19:09] VITALS: BP 131/65; PULSE 66; RESP 13; TEMP 36.2; O2SAT 94
--- OUTSIDE RECORDS SUMMARY | 2025-07-16 07:38 | XMS_ITS | Clinical Summary ---
Author Organization Formerly [facility] Address [address] [place] [address] Care Team Providers Care Telecom Engineer Name Role Phone Unknown Primary Care Provider [phone] Social History Tobacco Use Types Packs/Day Years [...] Vaccine (1 of 2) 1991 RSV Vaccine 50 years and old er and Patients (1 - 1-dose 75+ series) 2016 COVID-19 Vaccine (2023-2 5 season) 2025 Hepatitis B Vaccines Aged Out No long er eligible based on patient's age to complete this topic Care Teams Telecom Engineer Relationship Specialty Start Date End Date Unknown Unknow Provider Address PCP - General 07/01/21
== END 2025-07-15 19:10 | disposition home or self-care (01) ==
PROVIDERS: Physician Assistant; Emergency Provider Emergency Medicine; PCP Internal Medicine
DX: D16.4 Benign neoplasm of bones of skull and face (principal); E11.9 Type 2 diabetes mellitus without complications; Z79.4 Long term (current) use of insulin; Z79.899 Other long term (current) drug therapy
CPT/HCPCS: 36415; 70486; 80053; 85025; 99284

== ENCOUNTER → 2025-07-15 16:52 | Outpatient (BNV) | payer OTHER, SELFPAY | PROVIDERS: Emergency Provider Emergency Medicine; PCP Internal Medicine; Visit Provider Radiology Diagnostic Radiology | DX: J34.89 Other specified disorders of nose and nasal sinuses (principal); J32.4 Chronic pansinusitis | CPT/HCPCS: 70486 ==